=== PATIENT | male | born 1960 | race Hispanic/Latino ===

== ENCOUNTER 2018-06-01 07:49 | Observation (INO) | payer OTHER ==
[2018-06-01] MEDS ORDERED: Iohexol 240 (50 ml) ONE (08:25)
[2018-06-01] MEDS ORDERED: Iohexol 350 MG/100 ML VIAL ONE (08:33)
[2018-06-01 08:46] LABS: BASO # 0.07 K/mm3 (0.0-2.0); BASO % 0.7 % (0.0-3.0); EOS # 0.4 (0.0-0.7); EOS % 3.5 % (1.5-5.0); GRAN # 7.1 (1.4-6.5); GRAN % 71.2 % (50.0-68.0); HEMOGLOBIN 13.5 g/dL (14.0-18.0); LYMPH # 1.7 (1.2-3.4); MEAN CORPUSCULAR HEMOGLOBIN 29.5 pg (25.0-35.0); MEAN CORPUSCULAR HGB CONC 34.3 g/dl (31.0-37.0); MEAN PLATELET VOLUME 9.3 fl (7.0-11.0); MONO # 0.8 (0.1-0.6); MONO % 7.6 % (1.0-6.0); RBC 4.58 10^6/uL (3.5-6.1); RED CELL DISTRIBUTION WIDTH 14.1 % (11.5-14.5)
[2018-06-01 08:53] LABS: INR 1.23; PARTIAL THROMBOPLASTIN TIME 30.6 Seconds (25.1-36.5); PROTHROMBIN TIME 14.2 SECONDS (9.4-12.5)
[2018-06-01 08:54] LABS: ALB/GLOB RATIO 1.1 (1.1-1.8); ALBUMIN 3.8 g/dL (3.0-4.8); ALT/SGPT 48 U/L (7-56); AST/SGOT 92 U/L (17-59); BLOOD UREA NITROGEN 11 mg/dL (7-21); CALCIUM 9.7 mg/dL (8.4-10.5); GFR NON-AFRICAN AMERICAN > 60
--- NOTE | 2018-06-01 09:15 | ED PDOC ---
Arrival/HPI - General Chief Complaint: Abdominal Pain Time Seen by Provider: 06/01/18 08:12 Historian: Patient, Family - History of Present Illness Narrative History of Present Illness (Text): 06/01/18 08:20 58 year old male, with past medical history of ruptured peptic ulcer surgery years ago at [facility] [place], presents to the Emergency department accompanied by family complaining of abdominal pain and constipation since 2 weeks. Patient informs decreased bowel movement since onset of symptoms and reports his last bowel movement was yesterday with mild relief to symptoms. Patient denies any appetite changes or any other associated somatic complaints. Patient denies any fevers, chills, headache, dizziness, chest pain, shortness of breath, dyspnea on exertion, cough, nausea, vomiting, diarrhea, hematochezia, urinary output changes, neck pain, back pain or any other complaints. Time/Duration: > week Symptom Onset: Gradual Symptom Course: Unchanged Quality: Aching Activities at Onset: Light Context: Home Past Medical History - Provider Review Nursing Documentation Reviewed: Yes - Cardiac Hx Cardiac Disorders: No - Pulmonary Hx Respiratory Disorders: No - Neurological Hx Neurological Disorder: No - HEENT Hx HEENT Disorder: Yes (wears glasses) - Renal Hx Renal Disorder: No - Endocrine/Metabolic Hx Endocrine Disorders: No - Hematological/Oncological Hx Blood Transfusions: Yes Hx Blood Transfusion Reaction: No - Integumentary Hx Dermatological Disorder: No - Musculoskeletal/Rheumatological Hx Musculoskeletal Disorders: No Hx Falls: No - Gastrointestinal Hx Gastrointestinal Disorders: Yes (perforated ulcer 6 yrs ago) - Genitourinary/Gynecological Hx Genitourinary Disorders: No - Psychiatric Hx Psychophysiologic Disorder: No Hx Substance Use: No - Surgical History Other/Comment: Perforated intestine 6 yrs ago - Anesthesia Hx Anesthesia Reactions: No Hx Malignant Hyperthermia: No - Suicidal Assessment Feels Threatened In Home Enviroment: No Family/Social History - Physician Review Nursing Documentation Reviewed: Yes Family/Social History: Unknown Family HX Smoking Status: Heavy Smoker > 10 Cigarettes Daily Hx Alcohol Use: Yes (occasional) Hx Substance Use: No Allergies/Home Meds Allergies/Adverse Reactions: Allergies Penicillins Allergy (Verified 06/01/18 08:06) ANAPHYLAXIS Review of Systems - Physician Review All systems were reviewed & negative as marked: Yes - Review of Systems Constitutional: absent: Fevers Respiratory: absent: SOB, Cough Cardiovascular: absent: Chest Pain Gastrointestinal: Abdominal Pain, Constipation. absent: Diarrhea, Nausea, Vomiting, Appetite Changes, Hematochezia Genitourinary Male: absent: Dysuria, Hematuria, Urinary Output Changes Musculoskeletal: absent: Back Pain, Neck Pain Neurological: absent: Headache, Dizziness Physical Exam - Physical Exam Narrative Physical Exam (Text): 06/01/18 08:19 Gen: VS reviewed, alert, well developed, well nourished, nontoxic, mild distress. ENT: normal pharynx. Eye: EOMI, PERRL. Neck: no JVD, supple, no adenopathy. CV: regular rate, regular rhythm, no rubs, no murmur, no gallops, S1, S2, pulses equal and strong. Pulm: no distress, clear to auscultation, no wheeze, no rhonchi, breath sounds equal, no rales. Abd: Firm mass noted in upper abdomen. Non-tender and non-pulsatile. Ext: no edema. Skin: good color, no rash, no cyanosis. Psych: responds appropriately to questions, normal affect. Neuro: oriented x 3, CN2-12 intact grossly, motor intact, sensation intact. Vital Signs Reviewed: Yes Vital Signs Temp Pulse Resp BP Pulse Ox 06/01/18 08:18 98.3 F 86 18 126/76 100 Temperature: Afebrile Blood Pressure: Normal Pulse: Regular Respiratory Rate: Normal Appearance: Positive for: Well-Appearing, Non-Toxic, Comfortable Pain Distress: None Mental Status: Positive for: Alert and Oriented X 3 Medical Decision Making ED Course and Treatment: 06/01/18 08:20 Impression: 58 year old male presents to the Emergency department complaining of abdominal pain and constipation. Plan: -- CT of Abdomen/Pelvis -- EKG -- Labs -- Reassess and disposition Prior Visits: Notes and results from previous visits were reviewed. Progress Notes: 06/01/18 12:17 admit accepted by hospitalist, dr. becker, patient to be admitted for new liver masses, suspected metastatic disease. patient will require mulidisciplinar y approach for further care. i have informed the patient and sister of test results, care expectations, and have been given the opportunity to ask questions-they appear to have good understanding of everything up to this point. patient remained stable throughout course. - Lab Interpretations Lab Results: 06/01/18 08:20 06/01/18 08:20 Lab Results 06/01/18 08:20: PT 14.2 H, INR 1.23, APTT 30.6 06/01/18 08:20: Sodium 137, Potassium 3.9, Chloride 95 L, Carbon Dioxide 33, Anion Gap 12, BUN 11, Creatinine 0.7 L, Est GFR ( Amer) > 60, Est GFR (Non-Af Amer) > 60, Random Glucose 148 H, Calcium 9.7, Total Bilirubin 1.1, AST 92 H, ALT 48, Alkaline Phosphatase 344 H, Total Protein 7.2, Albumin 3.8, Globulin 3.4, Albumin/Globulin Ratio 1.1 06/01/18 08:20: WBC 10.0 D, RBC 4.58, Hgb 13.5 L, Hct 39.4 L, MCV 86.0, MCH 29.5, MCHC 34.3, RDW 14.1, Plt Count 412, MPV 9.3, Gran % 71.2 H, Lymph % (Auto) 17.0 L, [place] % (Auto) 7.6 H, Eos % (Auto) 3.5, Baso % (Auto) 0.7, Gran # 7.10 H, Lymph # (Auto) 1.7, [place] # (Auto) 0.8 H, Eos # (Auto) 0.4, Baso # (Auto) 0.07 - RAD Interpretation Narrative RAD Interpretations (Text): 06/01/18 11:34 CT of Abdomen reviewed by radiologist, shows: FINDINGS: LOWER THORAX: Unremarkable. LIVER: Innumerable hypodense masses throughout the liver the largest measuring 7 centimeters in the left hepatic lobe consistent with metastatic disease. GALLBLADDER AND BILE DUCTS: Unremarkable. PANCREAS: Unremarkable. No gross lesion or ductal dilatation. SPLEEN: Unremarkable. ADRENALS: Unremarkable. No mass. KIDNEYS AND URETERS: Unremarkable. No hydronephrosis. No solid mass. VASCULATURE: Unremarkable. No aortic aneurysm. No aortic atherosclerotic calcification or mural plaque present. BOWEL: Status post right hemicolectomy.No obstruction. No gross mural thickening. APPENDIX: Normal appendix. PERITONEUM: Unremarkable. No free fluid. No free air. LYMPH NODES: Unremarkable. No enlarged lymph nodes. BLADDER: Unremarkable. REPRODUCTIVE: Unremarkable. BONES: No acute fracture. OTHER FINDINGS: None. IMPRESSION: Innumerable hypodense masses throughout the liver the largest measuring 7 centimeters in the left hepatic lobe consistent with metastatic disease. Status post right hemicolectomy. Radiology Orders: 06/01/18 08:20 ABDOMEN & PELVIS [ABD PELVIS PO & IV CONTRAST] [CT] [employer]: Radiologist - EKG Interpretation EKG Interpretation (Text): 06/01/18 09:33 0850: nsr at 65 bpm, nml qrs, nml axis, no acute sttw abn Interpreted by ED Physician: Yes - Scribe Statement The provider has reviewed the documentation as recorded by the Scribe Nicol Edouard. All medical record entries made by the Scribe were at my direction and personally dictated by me. I have reviewed the chart and agree that the record accurately reflects my personal performance of the history, physical exam, medical decision making, and the department course for this patient. I have also personally directed, reviewed, and agree with the discharge instructions and disposition. Disposition/Present on Arrival - Present on Arrival Any Indicators Present on Arrival: No History of DVT/PE: No History of Uncontrolled Diabetes: No Urinary Catheter: No History of Decub. Ulcer: No History Surgical Site Infection Following: None - Disposition Have Diagnosis and Disposition been Completed?: Yes Diagnosis: Liver mass Disposition: HOSPITALIZED Disposition Time: 12:20 Patient Plan: Admission Condition: STABLE Forms: [employer] (Croatian)
--- NOTE | 2018-06-01 11:13 | CARD ---
APPROVED REPORT Date of service: 06/01/2018 EKG Measurement Heart [id number] <Conclusion> Normal sinus rhythm Normal ECG
--- NOTE | 2018-06-01 11:15 | CT ---
Date of service: 06/01/2018 PROCEDURE: CT Abdomen and Pelvis with contrast HISTORY: upper abdominal mass COMPARISON: None. TECHNIQUE: Contrast dose: Radiation dose: Total exam DLP = 330.45 mGy-cm. This CT exam was performed using one or more of the following dose reduction techniques: Automated exposure control, adjustment of the mA and/or kV according to patient size, and/or use of iterative reconstruction technique. FINDINGS: LOWER THORAX: Unremarkable. LIVER: Innumerable hypodense masses throughout the liver the largest measuring 7 centimeters in the left hepatic lobe consistent with metastatic disease. GALLBLADDER AND BILE DUCTS: Unremarkable. PANCREAS: Unremarkable. No gross lesion or ductal dilatation. SPLEEN: Unremarkable. ADRENALS: Unremarkable. No mass. KIDNEYS AND URETERS: Unremarkable. No hydronephrosis. No solid mass. VASCULATURE: Unremarkable. No aortic aneurysm. No aortic atherosclerotic calcification or mural plaque present. BOWEL: Status post right hemicolectomy.No obstruction. No gross mural thickening. APPENDIX: Normal appendix. PERITONEUM: Unremarkable. No free fluid. No free air. LYMPH NODES: Unremarkable. No enlarged lymph nodes. BLADDER: Unremarkable. REPRODUCTIVE: Unremarkable. BONES: No acute fracture. OTHER FINDINGS: None. IMPRESSION: Innumerable hypodense masses throughout the liver the largest measuring 7 centimeters in the left hepatic lobe consistent with metastatic disease. Status post right hemicolectomy.
--- NOTE | 2018-06-01 12:54 | CON ---
DATE: 06/01/2018 REQUESTING PHYSICIAN: Dr. Bennett. REASON FOR CONSULTATION: I have been asked to see this 58-year-old male with a history of ruptured peptic ulcer, history of stage IIIB colon cancer requiring right hemicolectomy back in 04/2015 who comes to the hospital with approximately 2 weeks of intermittent midabdominal pain. This was associated with constipation. I saw the patient in the office last and had scheduled the patient for an outpatient CT scan of the abdomen and pelvis. Routine blood work also revealed elevated alkaline phosphatase. The patient apparently was to see Dr. Carter for chemotherapy with FOLFOX. The patient does not recall if he ever had chemotherapy after his colon cancer surgery. CT scan of the abdomen and pelvis performed today in the emergency room shows multiple liver metastasis. The patient denies any fever, chills, nausea, vomiting or rectal bleeding. PAST MEDICAL HISTORY: As above. Again, he has a history of stage III colon cancer diagnosed in [id number], history of perforated peptic ulcer, history of DVT. PAST SURGICAL HISTORY: Notable for right hemicolectomy. The patient had surgery after his initial colon cancer surgery for revision of the anastomosis as he developed a hematoma. Several weeks later in 04/2015, he also had repair of a perforated peptic ulcer. SOCIAL HISTORY: The patient smokes up to half pack of cigarettes per day. He consumes alcohol on a regular basis. FAMILY HISTORY: Noncontributory. REVIEW OF SYSTEMS: A 14-point review of systems is notable for abdominal pain and constipation. PHYSICAL EXAMINATION: GENERAL: Middle-aged male, thin, in no acute distress. VITAL SIGNS: Reveal temperature of 98.3, blood pressure 118/68, heart rate is 71. HEENT: Reveal sclerae to be white. Conjunctivae pink. NECK: Supple. CHEST: Reveal lungs to be clear. HEART: Exam reveals a regular rate and rhythm. ABDOMEN: Reveals a well-healed left paramedian scar. He has a firm mass in the liver, which is palpable in the midline of the abdomen, 4 cm below the right costal margin. EXTREMITIES: Show no edema. LABORATORY DATA: Reveal white blood cell count of 10, hemoglobin 13.5. Chemistries reveal alkaline phosphatase of 344, AST 92, ALT 48. PT is 14.2, INR of 1.23. IMPRESSION: This is a 58-year-old male diagnosed with stage IIIB colon cancer back in 04/2015. It is unclear whether the patient ever had chemotherapy afterward. This was recommended by Dr. Carter. CT scan of the abdomen and pelvis performed here in the hospital revealed numerous liver metastases. His long-term prognosis is extremely poor. RECOMMENDATIONS: 1. We will request Dr. Becerra to do a CT-guided liver biopsy. 2. Check CEA level. 3. Will need Oncology evaluation. 4. Check alpha-fetoprotein tumor marker level. David Villagomez MD [facility]
--- NOTE | 2018-06-01 13:59 | CP.PCM.HP ---
<SangeethaAnnalisa - Last Filed: 06/01/18 15:12> History of Present Illness - History of Present Illness History of Present Illness: PGY-[address] Awad Mr Pulido, 58 M, with PMH of stage 3b colon cancer diagnosed in 2014 after having a bowel obstruction requiring R hemicolectomy, came to ED accompanied by family C/O abdominal pain and constipation since 2 weeks. The abdominal pain started 2 weeks ago with increased nodular sensation in epigastric area. The pain was only very mild, constant, not requiring any pain medicine. Bowel movement has decreased and his last bowel movement was yesterday with mild relief to symptoms. He did not follow up with oncologist since the diagnosis of colon cancer and was never on any cancer treatment. He saw PMD and GI last month. CT scan of abdomen and pelvis performed in ED showed multiple liver metastasis. He will undergo liver biopsy by interventional radiologist and pt wants to discharge home afterwards. Denies any appetite change, fevers, chills, night sweat, weight loss/gain, headache, dizziness, chest pain, shortness of breath, dyspnea on exertion, cough, nausea, vomiting, diarrhea, hematochezia, rectal bleeding, urinary output changes, neck pain, back pain or any other complaints. 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 Stage T3 N1) Chronic anemia Hx DVT (2014) PSH right hemicolectomy and adhesiolysis on 04/18/2015 and noted to have locally advanced cecal adenoca with lymphovascular invasion: He also underwent resection of ileocecal anastomosis with small bowel and transverse colon and evacuation of hematoma on 04/24/2015. FH Mother has DM, HTN, Heart disease and dyslipidemia. Maternal aunt has breast cancer. No history of colon cancer. SH smokes half a pack every day. Drinks socially. Denies use of drugs. All Penicillin Med See MAR Present on Admission - Present on Admission Any Indicators Present on Admission: Yes History of DVT/PE: Yes Past Patient History - Past Medical History & Family History Past Medical History?: No - Past Social History Smoking Status: Heavy Smoker > 10 Cigarettes Daily - CARDIAC Hx Cardiac Disorders: No - PULMONARY Hx Respiratory Disorders: No - NEUROLOGICAL Hx Neurological Disorder: No - HEENT Hx HEENT Problems: Yes (wears glasses) - RENAL Hx Chronic Kidney Disease: No - ENDOCRINE/METABOLIC Hx Endocrine Disorders: No - HEMATOLOGICAL/ONCOLOGICAL Hx Blood Transfusions: Yes Hx Blood Transfusion Reaction: No - INTEGUMENTARY Hx Dermatological Problems: No - MUSCULOSKELETAL/RHEUMATOLOGICAL Hx Musculoskeletal Disorders: No Hx Falls: No - GASTROINTESTINAL Hx Gastrointestinal Disorders: Yes (perforated ulcer 6 yrs ago) - GENITOURINARY/GYNECOLOGICAL Hx Genitourinary Disorders: No - PSYCHIATRIC Hx Psychophysiologic Disorder: No Hx Substance Use: No - SURGICAL HISTORY Other/Comment: Perforated intestine 6 yrs ago - ANESTHESIA Hx Anesthesia Reactions: No Hx Malignant Hyperthermia: No Meds Home Medications: Home Medication List Medication Instructions Recorded Confirmed Type Polyethylene Glycol 3350 [Miralax] 17 gm PO DAILY PRN #14 powder 06/02/18 Rx oxyCODONE/Acetaminophen [Percocet 1 ea PO Q6 #15 tab 06/02/18 Rx 5/325 mg Tab] Allergies/Adverse Reactions: Allergies Allergy/AdvReac Type Severity Reaction Status Date / Time Penicillins Allergy ANAPHYLAXIS Verified 06/01/18 15:37 Physical Exam - Constitutional Appears: No Acute Distress - Head Exam Head Exam: ATRAUMATIC, NORMAL INSPECTION, NORMOCEPHALIC - Eye Exam Eye Exam: EOMI, Normal appearance, PERRL. absent: Scleral icterus Pupil Exam: NORMAL ACCOMODATION - ENT Exam ENT Exam: Mucous Membranes Moist - Neck Exam Additional comments: supple, no jvd - Respiratory Exam Respiratory Exam: Clear to Auscultation Bilateral, NORMAL BREATHING PATTERN. absent: Decreased Breath Sounds, Rales, Rhonchi, Wheezes - Cardiovascular Exam Cardiovascular Exam: REGULAR RHYTHM, +S1, +S2. absent: Systolic Murmur - GI/Abdominal Exam GI & Abdominal Exam: Firm, Normal Bowel Sounds, Soft. absent: Distended, Guarding, Rigid, Tenderness Additional comments: tenderness upon palpation of epigastric area. Liver palpable below costal margins and epigastric area - Extremities Exam Extremities exam: Positive for: normal capillary refill, normal inspection, pedal pulses present. Negative for: calf tenderness, pedal edema, tenderness - Back Exam Back exam: absent: CVA tenderness (L), CVA tenderness (R) - Neurological Exam Neurological exam: Alert, CN II-XII Intact, Oriented x3 - Psychiatric Exam Psychiatric exam: Flat Affect, Normal Mood - Skin Skin Exam: Dry, Warm Results - Vital Signs Recent Vital Signs: Last Vital Signs Temp 98.1 F 06/01/18 13:18 Pulse 69 06/01/18 13:18 Resp 18 06/01/18 13:18 BP 124/76 06/01/18 13:18 Pulse Ox 100 06/01/18 13:18 - Labs Result Diagrams: 06/01/18 08:20 06/01/18 08:20 Labs: Laboratory Results - last 24 hr 06/01/18 06/01/18 06/01/18 08:20 08:20 08:20 WBC 10.0 D RBC 4.58 Hgb 13.5 L Hct 39.4 L MCV 86.0 MCH 29.5 MCHC 34.3 RDW 14.1 Plt Count 412 MPV 9.3 Gran % 71.2 H Lymph % (Auto) 17.0 L [place] % (Auto) 7.6 H Eos % (Auto) 3.5 Baso % (Auto) 0.7 Gran # 7.10 H Lymph # (Auto) 1.7 [place] # (Auto) 0.8 H Eos # (Auto) 0.4 Baso # (Auto) 0.07 PT 14.2 H INR 1.23 APTT 30.6 Sodium 137 Potassium 3.9 Chloride 95 L Carbon Dioxide 33 Anion Gap 12 BUN 11 Creatinine 0.7 L Est GFR ( Amer) > 60 Est GFR (Non-Af Amer) > 60 Random Glucose 148 H Calcium 9.7 Total Bilirubin 1.1 AST 92 H ALT 48 Alkaline Phosphatase 344 H Total Protein 7.2 Albumin 3.8 Globulin 3.4 Albumin/Globulin Ratio 1.1 Assessment & Plan - Assessment and Plan (Free Text) Plan: Suspected Liver metastasis Stage 3B colon cancer, diagnosed 2014, never treated - Liver Biosy by IR - Will check AFT and CEA level - NS@125 - liquid diet per IR - Pt will have an appointment at Dr Carter's clinic next Friday, 06/10, 3pm. - Pt to follow up with Dr. Villagomez and Dr Ayala within next week. - Patient insisted to go home after the biopsy - Sister knew of CT scan but mom doesnt know yet Hx DVT not on anticoagulant DVT prophylaxis with heparin sc s/r/d/w Dr. Awad <Naeem Awad - Last Filed: 06/02/18 14:13> Results - Vital Signs Recent Vital Signs: Last Vital Signs Temp 98.2 F 06/02/18 07:58 Pulse 58 L 06/02/18 07:58 Resp 20 06/02/18 07:58 BP 114/70 06/02/18 09:34 Pulse Ox 97 06/02/18 07:58 - Labs Result Diagrams: 06/02/18 07:10 06/02/18 07:10 Labs: Laboratory Results - last 24 hr 06/01/18 06/01/18 06/02/18 15:40 15:40 07:10 WBC 11.6 H RBC 4.22 Hgb 12.2 L Hct 36.3 L MCV 86.0 MCH 28.9 MCHC 33.6 RDW 14.0 Plt Count 382 MPV 9.3 Gran % 72.3 H Lymph % (Auto) 13.4 L [place] % (Auto) 10.6 H Eos % (Auto) 3.2 Baso % (Auto) 0.5 Gran # 8.38 H Lymph # (Auto) 1.6 [place] # (Auto) 1.2 H Eos # (Auto) 0.4 Baso # (Auto) 0.06 Sodium Potassium Chloride Carbon Dioxide Anion Gap BUN Creatinine Est GFR ( Amer) Est GFR (Non-Af Amer) Random Glucose Calcium Total Bilirubin AST ALT Alkaline Phosphatase Lactate Dehydrogenase Total Protein Albumin Globulin Albumin/Globulin Ratio Alpha Fetoprotein 2.6 Carcinoembryonic Ag 28.9 H 06/02/18 07:10 WBC RBC Hgb Hct MCV MCH MCHC RDW Plt Count MPV Gran % Lymph % (Auto) [place] % (Auto) Eos % (Auto) Baso % (Auto) Gran # Lymph # (Auto) [place] # (Auto) Eos # (Auto) Baso # (Auto) Sodium 136 Potassium 4.0 Chloride 98 Carbon Dioxide 33 Anion Gap 9 L BUN 9 Creatinine 0.8 Est GFR ( Amer) > 60 Est GFR (Non-Af Amer) > 60 Random Glucose 95 Calcium 9.3 Total Bilirubin 1.2 AST 81 H ALT 43 Alkaline Phosphatase 300 H Lactate Dehydrogenase 1916 H Total Protein 6.6 Albumin 3.5 Globulin 3.1 Albumin/Globulin Ratio 1.1 Alpha Fetoprotein Carcinoembryonic Ag Attending/Attestation - Attestation I have personally seen and examined this patient.: Yes I have fully participated in the care of the patient.: Yes I have reviewed all pertinent clinical information: Yes Notes (Text): 06/02/18 14:09 Attending note; Patient seen and examined with resident. Patient is a 58-year-old male with PMH of stage 3b colon cancer diagnosed in 2014 after having a bowel obstruction requiring R hemicolectomy is admitted for abdominal pain. CT abdomen and pelvis showed innumerable hypodense masses in the liver. Plan for the biopsy by Dr. Andrez Becerra. Plan discussed with patient ,patient's sister and mom in detail. Patient did not follow-up with oncology after colon cancer diagnosis in 2014. Oncology evaluation requested. Patient was evaluated by GI Dr. Villagomez today. Upon discharge the patient will follow-up with PMD .
[2018-06-01] MEDS ORDERED: Midazolam 2 MG/2 ML VIAL ONE ×2 (14:58→18:06)
[2018-06-01] MEDS ORDERED: Lidocaine 1% Inj (20ml) ONE (14:59)
[2018-06-01] MEDS: Sodium Chloride 0.45% 1,000 ML IV SCH (15:38)
[2018-06-01] MEDS ORDERED: POLYETHYLENE GLYCOL 3350 17 GM/Dose PACKET PO PRN (17:01)
[2018-06-01 18:21] VITALS: BMI 20.5
[2018-06-01] MEDS ORDERED: Influenza Vaccine 60 mcg/0.5 mL SYR (4YR UP) IM ONE (18:21)
[2018-06-01] MEDS ORDERED: Pneumococcal 23-Valent Vaccine IM ONE (18:21)
[2018-06-01] MEDS ORDERED: Sodium Chloride 0.45% 1,000 ML IV SCH (19:15)
[2018-06-01] MEDS ORDERED: Midazolam 2 MG/2 ML VIAL IVP ONE (19:50)
--- NOTE | 2018-06-01 20:16 | CT ---
PROCEDURE: CT guided liver biopsy. HISTORY: Previous colon carcinoma. Numerous liver lesions consistent with metastatic disease. Needs biopsy. PHYSICIAN(S): Andrez Becerra MD. TECHNIQUE: The relative risks and indications of the procedure were explained to the patient and his family and consent obtained. The patient was placed supine on the CT scanner and preliminary images through the liver obtained. Conscious sedation and monitoring were provided throughout the procedure by a nurse. There are numerous low-attenuation liver lesions in both lobes of the liver.. A subxyphoid approach was selected and the area prepped and draped in the usual sterile fashion. 1% Xylocaine was used to anesthetize the skin and soft tissues. A 17-gauge guiding needle was advanced into the 7.5 cm confluent mass in the medial segment of the left lobe. Its position was confirmed with CT. Using coaxial technique, multiple core biopsies were obtained. The postprocedure images show no evidence of significant hemorrhage. IMPRESSION: 1. CT-guided liver biopsy as described above.
[2018-06-01] MEDS: Oxycodone/Acetaminophen 5/325 mg Tab PO PRN (22:19)
[2018-06-02] MEDS: Oxycodone/Acetaminophen 5/325 mg Tab PO PRN (04:02)
[2018-06-02] MEDS: Sodium Chloride 0.45% 1,000 ML IV SCH ×2 (04:07→04:10)
[2018-06-02 07:28] LABS: BASO # 0.06 K/mm3 (0.0-2.0); BASO % 0.5 % (0.0-3.0); EOS # 0.4 (0.0-0.7); EOS % 3.2 % (1.5-5.0); GRAN # 8.38 (1.4-6.5); GRAN % 72.3 % (50.0-68.0); HEMOGLOBIN 12.2 g/dL (14.0-18.0); LYMPH # 1.6 (1.2-3.4); LYMPH % 13.4 % (22.0-35.0); MEAN CORPUSCULAR HEMOGLOBIN 28.9 pg (25.0-35.0); MEAN CORPUSCULAR HGB CONC 33.6 g/dl (31.0-37.0); MEAN PLATELET VOLUME 9.3 fl (7.0-11.0); MONO # 1.2 (0.1-0.6); MONO % 10.6 % (1.0-6.0); RBC 4.22 10^6/uL (3.5-6.1); WHITE BLOOD COUNT 11.6 10^3/uL (4.5-11.0)
[2018-06-02 07:53] LABS: ALB/GLOB RATIO 1.1 (1.1-1.8); ALBUMIN 3.5 g/dL (3.0-4.8); ALT/SGPT 43 U/L (7-56); AST/SGOT 81 U/L (17-59); BLOOD UREA NITROGEN 9 mg/dL (7-21); CALCIUM 9.3 mg/dL (8.4-10.5); GFR NON-AFRICAN AMERICAN > 60
[2018-06-02 07:58] VITALS: BP 114/70; PULSE 58; RESP 20; TEMP 98.2; O2SAT 97
[2018-06-02] MEDS ORDERED: Multivitamin Therapeutic Tab PO SCH (10:00)
--- NOTE | 2018-06-02 15:33 | CP.PCM.DIS ---
<Mahad Medrano - Last Filed: 06/02/18 15:44> Provider - Provider Date of Admission: 06/01/18 12:15 Attending physician: Naeem Awad MD Consults: GI: Dahlia, IR: Don Becerra/onc: Emma Time Spent in preparation of Discharge (in minutes): 40 Diagnosis - Discharge Diagnosis (1) Colon cancer metastasized to liver Status: Acute (2) Colon cancer Status: Acute (3) Liver mass Status: Acute Hospital Course - Lab Results Lab Results: Most Recent Lab Values WBC 11.6 10^3/uL (4.5-11.0) H 06/02/18 07:10 RBC 4.22 10^6/uL (3.5-6.1) 06/02/18 07:10 Hgb 12.2 g/dL (14.0-18.0) L 06/02/18 07:10 Hct 36.3 % (42.0-52.0) L 06/02/18 07:10 MCV 86.0 fl (80.0-105.0) 06/02/18 07:10 MCH 28.9 pg (25.0-35.0) 06/02/18 07:10 MCHC 33.6 g/dl (31.0-37.0) 06/02/18 07:10 RDW 14.0 % (11.5-14.5) 06/02/18 07:10 Plt Count 382 10^3/uL (120.0-450.0) 06/02/18 07:10 MPV 9.3 fl (7.0-11.0) 06/02/18 07:10 Gran % 72.3 % (50.0-68.0) H 06/02/18 07:10 Lymph % (Auto) 13.4 % (22.0-35.0) L 06/02/18 07:10 [place] % (Auto) 10.6 % (1.0-6.0) H 06/02/18 07:10 Eos % (Auto) 3.2 % (1.5-5.0) 06/02/18 07:10 Baso % (Auto) 0.5 % (0.0-3.0) 06/02/18 07:10 Gran # 8.38 (1.4-6.5) H 06/02/18 07:10 Lymph # (Auto) 1.6 (1.2-3.4) 06/02/18 07:10 [place] # (Auto) 1.2 (0.1-0.6) H 06/02/18 07:10 Eos # (Auto) 0.4 (0.0-0.7) 06/02/18 07:10 Baso # (Auto) 0.06 K/mm3 (0.0-2.0) 06/02/18 07:10 PT 14.2 SECONDS (9.4-12.5) H 06/01/18 08:20 INR 1.23 06/01/18 08:20 APTT 30.6 Seconds (25.1-36.5) 06/01/18 08:20 Sodium 136 mmol/L (132-148) 06/02/18 07:10 Potassium 4.0 mmol/L (3.6-5.0) 06/02/18 07:10 Chloride 98 mmol/L (98-107) 06/02/18 07:10 Carbon Dioxide 33 mmol/L (21-33) 06/02/18 07:10 Anion Gap 9 (10-20) L 06/02/18 07:10 BUN 9 mg/dL (7-21) 06/02/18 07:10 Creatinine 0.8 mg/dl (0.8-1.5) 06/02/18 07:10 Est GFR ( Amer) > 60 06/02/18 07:10 Est GFR (Non-Af Amer) > 60 06/02/18 07:10 Random Glucose 95 mg/dL (70-110) 06/02/18 07:10 Calcium 9.3 mg/dL (8.4-10.5) 06/02/18 07:10 Total Bilirubin 1.2 mg/dL (0.2-1.3) 06/02/18 07:10 AST 81 U/L (17-59) H 06/02/18 07:10 ALT 43 U/L (7-56) 06/02/18 07:10 Alkaline Phosphatase 300 U/L (38-126) H 06/02/18 07:10 Lactate Dehydrogenase 1916 U/L (333-699) H 06/02/18 07:10 Total Protein 6.6 g/dL (5.8-8.3) 06/02/18 07:10 Albumin 3.5 g/dL (3.0-4.8) 06/02/18 07:10 Globulin 3.1 gm/dL 06/02/18 07:10 Albumin/Globulin Ratio 1.1 (1.1-1.8) 06/02/18 07:10 Alpha Fetoprotein 2.6 ng/mL (0.0-7.5) 06/01/18 15:40 Carcinoembryonic Ag 28.9 ng/mL (0.0-3.0) H 06/01/18 15:40 - Hospital Course Hospital Course: Mahad Medrano DO, PGY-1 Hospitalist Discharge Summary for Dr. Awad Mr. Pulido is a 58 yo M with PMH of stage 3b colon CA (diagnosed in 2014, now stage IV given liver mets), DVT (2014), chronic anemia, and SBO presented t the ED with worsening abdominal pain and constipation x 2 weeks. Per patient he had continuing lower abdominal pain that progressed to a sharp, stabbing type pain. CTAP done in ED showed multiple liver metastases. Mr. Pulido was first diagnosed with stage 3b colon CA in 2014. He susequently underwent R hemicolectomy with Dr. Storey. He also had an SBO and adehesiolysis completed at that time. At that time in 2014, he was instructed to f/u with Dr. Carter for outpatient FOLFOX chemotherapy. Unfortunately, he was lost to follow up and never received FOLFOX or any other chemotherapy post-op. He only recently returned to his PMD, Dr. Peter, and Dr. Villagomez about a month ago. He was admitted to [facility] yesterday for biopsy of one of the liver lesions per IR Dr. Becerra. Official path report is still pending but suspicion for metastatic disease is high. After the biopsy, he recovered well, has been afebrile. He states that his pain has not been well controlled with tylenol alone and requested additional pain medicine. The biopsy site appears clean, dry, intact, with minimal ecchymosis. He was given prescription for 5 days of percocet until he is able to f/u with PMD (Dr. Peter), Dr. Carter, or Dr. Villagomez. Medications were delivered at bedside prior to discharge. Dr. Carter has followed him while in the hospital and he is instructed to follow up with him for outpatient chemotherapy after discharge. He is also instructed to follow up with his PMD and Dr. Villagomez within 7 days of discharge from hospital. Patient verbalized understanding and stated he did not want to stay in the hospital and would prefer to go home. All questions were answered. Discharge Exam - Head Exam Head Exam: ATRAUMATIC, NORMAL INSPECTION, NORMOCEPHALIC - Eye Exam Eye Exam: EOMI, Normal appearance, PERRL - ENT Exam ENT Exam: Mucous Membranes Moist - Neck Exam Neck exam: Full Rom, Normal Inspection - Respiratory Exam Respiratory Exam: Clear to PA & Lateral, NORMAL BREATHING PATTERN, UNREMARKABLE. absent: Accessory Muscle Use, Rales, Rhonchi, Wheezes, Respiratory Distress - Cardiovascular Exam Cardiovascular Exam: REGULAR RHYTHM, RRR, +S1, +S2. absent: Diastolic murmur, Gallop, Rubs, Systolic Murmur - GI/Abdominal Exam GI & Abdominal Exam: Normal Bowel Sounds, Soft. absent: Guarding, Tenderness Additional comments: RUQ bx site clean, dry, intact with minimal ecchymosis - Extremities Exam Extremities exam: full ROM, normal inspection - Back Exam Back exam: NORMAL INSPECTION - Neurological Exam Neurological exam: Alert, Oriented x3 - Psychiatric Exam Psychiatric exam: Agitated, Anxious - Skin Skin Exam: Dry, Intact, Warm Discharge Plan - Discharge Medications Prescriptions: oxyCODONE/Acetaminophen [Percocet 5/325 mg Tab] 1 ea PO Q6 #15 tab Polyethylene Glycol 3350 [Miralax] 17 gm PO DAILY PRN #14 powder PRN Reason: Constipation - Follow Up Plan Condition: STABLE Disposition: HOME/ ROUTINE Instructions: Postoperative Ileus (DC), Colon and Rectal Cancer (DC), Colon Stricture (DC) Additional Instructions: Please follow up with Dr. Carter next Sunday 06/10. Your appointment is at 3pm. Follow up with Dr. Villagomez and Dr. Peter next week for biopsy results. Follow up with Dr. Carter to continue pain and cancer management after your biopsy. If your symptoms worsen please return to nearest ED. Referrals: David Peter MD [Staff Provider] - 1 Week David Villagomez MD [Staff Provider] - 1 Week Nancy Carter MD [Staff Provider] - 1 Week <Naeem Awad - Last Filed: 06/03/18 14:55> Provider - Provider Date of Admission: 06/01/18 12:15 Attending physician: Naeem Awad MD Hospital Course - Lab Results Lab Results: Most Recent Lab Values WBC 11.6 10^3/uL (4.5-11.0) H 06/02/18 07:10 RBC 4.22 10^6/uL (3.5-6.1) 06/02/18 07:10 Hgb 12.2 g/dL (14.0-18.0) L 06/02/18 07:10 Hct 36.3 % (42.0-52.0) L 06/02/18 07:10 MCV 86.0 fl (80.0-105.0) 06/02/18 07:10 MCH 28.9 pg (25.0-35.0) 06/02/18 07:10 MCHC 33.6 g/dl (31.0-37.0) 06/02/18 07:10 RDW 14.0 % (11.5-14.5) 06/02/18 07:10 Plt Count 382 10^3/uL (120.0-450.0) 06/02/18 07:10 MPV 9.3 fl (7.0-11.0) 06/02/18 07:10 Gran % 72.3 % (50.0-68.0) H 06/02/18 07:10 Lymph % (Auto) 13.4 % (22.0-35.0) L 06/02/18 07:10 [place] % (Auto) 10.6 % (1.0-6.0) H 06/02/18 07:10 Eos % (Auto) 3.2 % (1.5-5.0) 06/02/18 07:10 Baso % (Auto) 0.5 % (0.0-3.0) 06/02/18 07:10 Gran # 8.38 (1.4-6.5) H 06/02/18 07:10 Lymph # (Auto) 1.6 (1.2-3.4) 06/02/18 07:10 [place] # (Auto) 1.2 (0.1-0.6) H 06/02/18 07:10 Eos # (Auto) 0.4 (0.0-0.7) 06/02/18 07:10 Baso # (Auto) 0.06 K/mm3 (0.0-2.0) 06/02/18 07:10 PT 14.2 SECONDS (9.4-12.5) H 06/01/18 08:20 INR 1.23 06/01/18 08:20 APTT 30.6 Seconds (25.1-36.5) 06/01/18 08:20 Sodium 136 mmol/L (132-148) 06/02/18 07:10 Potassium 4.0 mmol/L (3.6-5.0) 06/02/18 07:10 Chloride 98 mmol/L (98-107) 06/02/18 07:10 Carbon Dioxide 33 mmol/L (21-33) 06/02/18 07:10 Anion Gap 9 (10-20) L 06/02/18 07:10 BUN 9 mg/dL (7-21) 06/02/18 07:10 Creatinine 0.8 mg/dl (0.8-1.5) 06/02/18 07:10 Est GFR ( Amer) > 60 06/02/18 07:10 Est GFR (Non-Af Amer) > 60 06/02/18 07:10 Random Glucose 95 mg/dL (70-110) 06/02/18 07:10 Calcium 9.3 mg/dL (8.4-10.5) 06/02/18 07:10 Total Bilirubin 1.2 mg/dL (0.2-1.3) 06/02/18 07:10 AST 81 U/L (17-59) H 06/02/18 07:10 ALT 43 U/L (7-56) 06/02/18 07:10 Alkaline Phosphatase 300 U/L (38-126) H 06/02/18 07:10 Lactate Dehydrogenase 1916 U/L (333-699) H 06/02/18 07:10 Total Protein 6.6 g/dL (5.8-8.3) 06/02/18 07:10 Albumin 3.5 g/dL (3.0-4.8) 06/02/18 07:10 Globulin 3.1 gm/dL 06/02/18 07:10 Albumin/Globulin Ratio 1.1 (1.1-1.8) 06/02/18 07:10 Alpha Fetoprotein 2.6 ng/mL (0.0-7.5) 06/01/18 15:40 Carcinoembryonic Ag 28.9 ng/mL (0.0-3.0) H 06/01/18 15:40 CA 19-9 Antigen 120 U/mL (0-37) H 06/02/18 11:20 Attending/Attestation - Attestation I have personally seen and examined this patient.: Yes I have fully participated in the care of the patient.: Yes I have reviewed all pertinent clinical information, including history, physical exam and plan: Yes Notes (Text): 06/03/18 14:45 Attending note; Patient seen and examined with resident. patient's sister and mother by the bedside. Patient is restless. Does not want to stay in the hospital. seen by oncology. Triple phase CT of liver recommended. outpatient PET scan recommended. Patient refused studies inpatient. Patient is a 58-year-old male with PMH of stage 3b colon cancer diagnosed in 2015 after having a bowel obstruction requiring R hemicolectomy is admitted for abdominal pain. CT abdomen and pelvis showed innumerable hypodense masses in the liver. s/p liver biopsy by Dr. Andrez Becerra. advised to follow-up results as outpatient. appointment made with Dr. Carter for outpatient oncology evaluation and treatment. Patient was evaluated by GI Dr. Villagomez today. case discussed with PMD in detail. Follow-up plan discussed with patient and family in detail. Upon discharge the patient will follow-up with PMD .
--- NOTE | 2018-06-02 17:32 | CP.PCM.CON ---
History of Present Illness - History of Present Illness History of Present Illness: Hematology/Oncology Consultation (Dr. Carter's Service) CC: Innumerable liver masses with history of untreated (patient non-compliance) stage IIIb adenocarcinoma of the colon HPI: Mr. Pulido is a 58 year old male with a past medical history significant for Stage 3b Colon cancer (locally advanced cecal adenocarcinoma with lymphovascular invasion, Caldwell II. Stage T3 N1), bowel obstruction s/p emergent laparotomy resulting in R hemicolectomy tobacco use disorder, chronic anemia and history of DVT (2014) who presents with abdominal pain. The abdominal pain started two weeks ago with increased nodular sensation in his epigastric area. The pain was reported to be mild, constant and without radiation. He rates the pain as an 8/10. He does report that it did not require any pain medicine. He also reports that he has had less frequent BM's with his last one yesterday. Of note, this provided very little if any relief of his presenting abdominal pain. Patient was noted to have been diagnosed with colon cancer in 2014 at [facility]. At that time, it was staged as IIIb and patient was scheduled for outpatient follow up with our Oncology team. Patient did not comply with this and was never treated nor saw any oncologists in the interim. Discussions with patients primary care doctor revealed that patient has a long standing history of non-compliance with follow up, health maintenance and medication adherence that has been well documented by their office. Currently patient denies any ppetite change, fevers, chills, night sweat, weight loss/gain, headache, dizziness, chest pain, shortness of breath, dyspnea on exertion, cough, nausea, vomiting, diarrhea, hematochezia, rectal bleeding, urinary output changes, neck pain, or back pain. PMH: As stated above PSH: Right hemicolectomy and adhesiolysis (04/18/2015), resection of ileocecal anastomosis with small bowel and transverse colon and evacuation of hematoma (04/24/2015) Family History: Mother-DM2, HTN, CAD, HLD; Maternal Aunt-Breast Cancer Social History: Current smoker with at least 30 year pack smoking history, social consumption of alcohol and denies any illicit drug use Allergies: PCN Home Medications: As per MAR Review of Systems - Review of Systems Review of Systems: As stated in HPI, otherwise negative Past Patient History - Past Medical History & Family History Past Medical History?: No - Past Social History Smoking Status: Former Smoker - CARDIAC Hx Cardiac Disorders: No - PULMONARY Hx Respiratory Disorders: Yes (SMOKES 1/2 PPD) - NEUROLOGICAL Hx Neurological Disorder: No - HEENT Hx HEENT Problems: Yes (wears glasses) - RENAL Hx Chronic Kidney Disease: No - ENDOCRINE/METABOLIC Hx Endocrine Disorders: No - HEMATOLOGICAL/ONCOLOGICAL Hx Blood Disorders: Yes Hx Anemia: Yes - INTEGUMENTARY Hx Dermatological Problems: No - MUSCULOSKELETAL/RHEUMATOLOGICAL Hx Musculoskeletal Disorders: No Hx Falls: No - GASTROINTESTINAL Hx Gastrointestinal Disorders: Yes (perforated ulcer 6 yrs ago WITH REPAIR.) Other/Comment: SBO,COLON CA WITH LIVER MASS,RIGHT HEMICOLECTOMY - GENITOURINARY/GYNECOLOGICAL Hx Genitourinary Disorders: No - PSYCHIATRIC Hx Psychophysiologic Disorder: No Hx Substance Use: No - SURGICAL HISTORY Hx Surgeries: Yes (HEMICOLECTOMY) Other/Comment: Perforated intestine 6 yrs ago - ANESTHESIA Hx Anesthesia Reactions: No Hx Malignant Hyperthermia: No Meds Home Medications: Home Medication List Medication Instructions Recorded Confirmed Type Polyethylene Glycol 3350 [Miralax] 17 gm PO DAILY PRN #14 powder 06/02/18 Rx oxyCODONE/Acetaminophen [Percocet 1 ea PO Q6 #15 tab 06/02/18 Rx 5/325 mg Tab] Allergies/Adverse Reactions: Allergies Allergy/AdvReac Type Severity Reaction Status Date / Time Penicillins Allergy ANAPHYLAXIS Verified 06/01/18 15:37 Physical Exam - Constitutional Additional comments: - Head Exam Head Exam: ATRAUMATIC, NORMAL INSPECTION, NORMOCEPHALIC - Eye Exam Eye Exam: EOMI, Normal appearance, PERRL - ENT Exam ENT Exam: Mucous Membranes Moist - Neck Exam Neck exam: Full Rom, Normal Inspection - Respiratory Exam Respiratory Exam: Clear to Auscultation Bilaterally, NORMAL BREATHING PATTERN absent: Accessory Muscle Use, Rales, Rhonchi, Wheezes, Respiratory Distress - Cardiovascular Exam Cardiovascular Exam: REGULAR RHYTHM, RRR, +S1, +S2. absent: Diastolic murmur, Gallop, Rubs, Systolic Murmur - GI/Abdominal Exam GI & Abdominal Exam: Normal Bowel Sounds, Soft. absent: Guarding, Tenderness Additional comments: RUQ biopsy site clean, dry, and intact with minimal ecchymosis - Extremities Exam Extremities exam: full ROM, normal inspection - Back Exam Back exam: NORMAL INSPECTION - Neurological Exam Neurological exam: Alert, Oriented x3 - Psychiatric Exam Psychiatric exam: Agitated, Anxious - Skin Skin Exam: Dry, Intact, Warm Results - Vital Signs Recent Vital Signs: Last Vital Signs Temp 98.2 F 06/02/18 07:58 Pulse 58 L 06/02/18 07:58 Resp 20 06/02/18 07:58 BP 114/70 06/02/18 09:34 Pulse Ox 97 06/02/18 07:58 - Labs Result Diagrams: 06/02/18 07:10 06/02/18 07:10 Labs: Laboratory Results - last 24 hr 06/01/18 06/02/18 06/02/18 15:40 07:10 07:10 WBC 11.6 H RBC 4.22 Hgb 12.2 L Hct 36.3 L MCV 86.0 MCH 28.9 MCHC 33.6 RDW 14.0 Plt Count 382 MPV 9.3 Gran % 72.3 H Lymph % (Auto) 13.4 L [place] % (Auto) 10.6 H Eos % (Auto) 3.2 Baso % (Auto) 0.5 Gran # 8.38 H Lymph # (Auto) 1.6 [place] # (Auto) 1.2 H Eos # (Auto) 0.4 Baso # (Auto) 0.06 Sodium 136 Potassium 4.0 Chloride 98 Carbon Dioxide 33 Anion Gap 9 L BUN 9 Creatinine 0.8 Est GFR ( Amer) > 60 Est GFR (Non-Af Amer) > 60 Random Glucose 95 Calcium 9.3 Total Bilirubin 1.2 AST 81 H ALT 43 Alkaline Phosphatase 300 H Lactate Dehydrogenase 1916 H Total Protein 6.6 Albumin 3.5 Globulin 3.1 Albumin/Globulin Ratio 1.1 Alpha Fetoprotein 2.6 CA 19-9 Antigen 06/02/18 11:20 WBC RBC Hgb Hct MCV MCH MCHC RDW Plt Count MPV Gran % Lymph % (Auto) [place] % (Auto) Eos % (Auto) Baso % (Auto) Gran # Lymph # (Auto) [place] # (Auto) Eos # (Auto) Baso # (Auto) Sodium Potassium Chloride Carbon Dioxide Anion Gap BUN Creatinine Est GFR ( Amer) Est GFR (Non-Af Amer) Random Glucose Calcium Total Bilirubin AST ALT Alkaline Phosphatase Lactate Dehydrogenase Total Protein Albumin Globulin Albumin/Globulin Ratio Alpha Fetoprotein CA 19-9 Antigen 120 H Assessment & Plan - Assessment and Plan (Free Text) Assessment: 58 year old male with a past medical history significant for Stage 3b Colon cancer (locally advanced cecal adenocarcinoma with lymphovascular invasion, Caldwell II. Stage T3 N1), bowel obstruction s/p emergent laparotomy resulting in R hemicolectomy tobacco use disorder, chronic anemia and history of DVT (2015) who presents with abdominal pain. A CT abdomen/pelvis with IV contrast showed innumerable liver masses. IR performed CT-guided liver biopsy yesterday, results pending. Patient will be discharged today as he is demanding discharge with outpatient followup at this time. Plan: -Extensive history of non-compliance with outpatient follow-up, routine health maintenance and treatment noted and documented -CT Abdomen/Pelvis findings noted and reviewed with patient -Biopsy results pending; Added K-riri, BRAF, PDL-1 and MSI -Patient to have PET/CT and CT Liver protocol done -Patient given prescriptions for above outpatient imaging studies -All forms delivered to both outpatient radiology and outpatient PET/CT offices by myself -Patient to receive call back for imaging scheduling -To be seen in Dr. Carter's clinic on 06/10/2018 -Follow up with both his primary doctor (Dr. Peter) and hims clerk (Dr. Villagomez) -Further recommendations as per Dr. Carter Patient seen and case discussed with attending, Dr. Carter. Arnaud Sutton PGY2 - Date & Time Date: 06/02/18 Time: 12:00
== END 2018-06-02 14:20 | disposition home or self-care (01) ==
LOC: ED 07:49 → ERH 12:15 → INTOOBSV 12:15 → ERH 12:49 → 3RNO 14:19
PROVIDERS: ADMIT Internal Medicine; ATTEND Internal Medicine
DX: C78.7 Secondary malignant neoplasm of liver and intrahepatic bile duct (principal); Z85.038 Personal history of other malignant neoplasm of large intestine; D64.9 Anemia, unspecified; F17.210 Nicotine dependence, cigarettes, uncomplicated; Z91.19 Patient's noncompliance with other medical treatment and regimen; Z90.49 Acquired absence of other specified parts of digestive tract; Z86.718 Personal history of other venous thrombosis and embolism
CPT/HCPCS: 36415; 47000; 74177; 77012; 80053; 82105; 82378; 83615; 85025; 85027; 85610; 85730; 86301; 88307; 93005; 99284; G0378; J7030; Q9966; Q9967

== ENCOUNTER 2018-06-30 06:27 | Day surgery (SDC) | payer OTHER ==
[2018-06-18 13:25] VITALS: BMI 20.2
[2018-06-30 07:10] LABS: BASO # 0.07 K/mm3 (0.0-2.0); BASO % 0.4 % (0.0-3.0); EOS # 0.3 (0.0-0.7); EOS % 1.6 % (1.5-5.0); GRAN # 13.63 (1.4-6.5); GRAN % 80.4 % (50.0-68.0); HEMOGLOBIN 11.3 g/dL (14.0-18.0); INR 1.36; LYMPH # 1.5 (1.2-3.4); MEAN CELL VOLUME 83.7 fl (80.0-105.0); MEAN CORPUSCULAR HGB CONC 33.4 g/dl (31.0-37.0); MEAN PLATELET VOLUME 9.4 fl (7.0-11.0); MONO # 1.5 (0.1-0.6); MONO % 8.6 % (1.0-6.0); PARTIAL THROMBOPLASTIN TIME 25.1 Seconds (25.1-36.5); PROTHROMBIN TIME 15.7 SECONDS (9.4-12.5); RBC 4.04 10^6/uL (3.5-6.1); RED CELL DISTRIBUTION WIDTH 15.1 % (11.5-14.5); WHITE BLOOD COUNT 16.9 10^3/uL (4.5-11.0)
[2018-06-30 07:15] LABS: BLOOD UREA NITROGEN 9 mg/dL (7-21); CALCIUM 9.4 mg/dL (8.4-10.5); GFR NON-AFRICAN AMERICAN > 60
[2018-06-30] MEDS ORDERED: Iodixanol 320 mg/ml 150 ml Bottle IV ONE (09:58)
[2018-06-30] MEDS ORDERED: Lidocaine 2% Inj (20ml) ONE (09:58)
[2018-06-30] MEDS ORDERED: Midazolam 2 MG/2 ML VIAL ONE ×2 (10:38→10:53)
[2018-06-30] MEDS ORDERED: Oxycodone/Acetaminophen 5/325 mg Tab PO PRN (11:25)
[2018-06-30] MEDS ORDERED: Sodium Chloride 0.45% 1,000 ML IV SCH (11:30)
[2018-06-30 12:26] VITALS: PULSE 76; RESP 18; TEMP 97.5; O2SAT 96
[2018-06-30 13:06] VITALS: BP 116/67
--- NOTE | 2018-06-30 19:36 | VASCULAR ---
PROCEDURE: Ultrasound and fluoroscopic right internal jugular venous access port. CLINICAL HISTORY: Metastatic colorectal carcinoma.Venous port for chemotherapy. PHYSICIAN(S): Andrez Becerra M.D. TECHNIQUE: The relative risks and indications of the procedure were explained to the patient and his family and consent obtained. The patient was placed supine on the arteriogram table and the right neck and chest prepped and draped in the usual sterile fashion. Conscious sedation monitoring was provided throughout the procedure by a nurse. Antibiotics were given prior to the procedure. Under direct ultrasound guidance, the right internal jugular vein was punctured with a micro-puncture set. A 0.035 angled Glidewire was advanced into the IVC. A 4 cm incision was made below the right clavicle and the pocket blunted dissected. A 8 Wolof single-lumen catheter, 23 cm long, was advanced to the SVC/RA junction. The catheter was trimmed and attached to the port. The port aspirates and injects easily. The port was placed in the pocket and closed in 2 layers. The patient tolerated the procedure well. IMPRESSION: Ultrasound and fluoroscopically placed right internal jugular venous access port.
== END 2018-06-30 13:27 | disposition home or self-care (01) ==
LOC: SDS 06:27
PROVIDERS: ATTEND Radiology Vascular & Interventional Radiology
DX: Z45.2 Encounter for adjustment and management of vascular access device (principal); C19 Malignant neoplasm of rectosigmoid junction; C78.7 Secondary malignant neoplasm of liver and intrahepatic bile duct; I25.10 Atherosclerotic heart disease of native coronary artery without angina pectoris; I10 Essential (primary) hypertension; F17.200 Nicotine dependence, unspecified, uncomplicated; Z88.0 Allergy status to penicillin
CPT/HCPCS: 36415; 36561; 76937; 77001; 80048; 85025; 85610; 85730; 99152; 99153; C1769; C1788; J0690; J1644; J2250; J2405; J3010; J7030; Q9967

== ENCOUNTER 2018-07-15 08:28 | Inpatient (IN) | payer OTHER ==
[2018-07-15 08:36] VITALS: BMI 21.9
[2018-07-15] MEDS ORDERED: Famotidine 20mg/50ml 20 MG/50 ML BAG IVPB STA (08:42)
[2018-07-15] MEDS ORDERED: Morphine 4 mg/ml ISec IVP STA (08:42)
[2018-07-15] MEDS ORDERED: Iohexol 240 (50 ml) ONE (08:48)
--- NOTE | 2018-07-15 08:55 | ED PDOC ---
Arrival/HPI - General Chief Complaint: Abdominal Pain Time Seen by Provider: 07/15/18 08:34 Historian: Patient - History of Present Illness Narrative History of Present Illness (Text): 07/15/18 08:42 58 year old male, with past medical history of bowel obstruction s/p right hemicolectomy, Stage 3 b Colon cancer metastases to the liver, chronic anemia and DVT (2004), presents to the Emergency department accompanied by family co mplaining of abdominal pain since last night. Patient reports associated diarrhea but denies any nausea or vomiting. Patient states taking oxycodone for the pain this morning with mild improvement to symptoms. Patient denies any other associated somatic complaints. Patient denies any fevers, chills, headache, dizziness, chest pain, shortness of breath, dyspnea on exertion, cough, back pain, neck pain, or any other complaints. Patient states his last chemotherapy was last Friday. PMD: Dr. Peter Oncologist: Dr. Carter GI: Dr. Villagomez Time/Duration: 4-6 hours Symptom Onset: Gradual Symptom Course: Unchanged Quality: Aching Activities at Onset: Light Context: Home Past Medical History - Provider Review Nursing Documentation Reviewed: Yes - Infectious Disease Hx of Infectious Diseases: None - Cardiac Hx Pacemaker: No - Pulmonary Hx Respiratory Disorders: Yes (SMOKES 1/2 PPD) - Neurological Hx Neurological Disorder: No - HEENT Hx HEENT Disorder: Yes (wears glasses) - Renal Hx Renal Disorder: No - Endocrine/Metabolic Hx Endocrine Disorders: No - Hematological/Oncological Hx Blood Disorders: Yes Hx Anemia: Yes - Integumentary Hx Dermatological Disorder: No - Musculoskeletal/Rheumatological Hx Musculoskeletal Disorders: No - Gastrointestinal Hx Gastrointestinal Disorders: Yes (perforated ulcer 6 yrs ago WITH REPAIR.) Other/Comment: SBO,COLON CA WITH LIVER MASS,RIGHT HEMICOLECTOMY - Genitourinary/Gynecological Hx Genitourinary Disorders: No - Psychiatric Hx Anxiety: Yes Hx Emotional Abuse: No Hx Physical Abuse: No Hx Substance Use: No - Surgical History Other/Comment: Perforated intestine 6 yrs ago - Anesthesia Hx Anesthesia Reactions: No Hx Malignant Hyperthermia: No - Suicidal Assessment Feels Threatened In Home Enviroment: No Family/Social History - Physician Review Nursing Documentation Reviewed: Yes Family/Social History: Unknown Family HX Smoking Status: Former Smoker Hx Alcohol Use: Yes (PAST ETOH;"HAD TO STOP NOW") Hx Substance Use: No Allergies/Home Meds Allergies/Adverse Reactions: Allergies Penicillins Allergy (Unknown, Verified 06/18/18 13:25) ANAPHYLAXIS WAS TOLD CHILD Home Medications: Home Meds Medication Instructions Recorded Confirmed Mv-Min/Folic/Vit K/Lycop/Coq10 1 each PO DAILY 06/01/18 07/09/18 [Daily Multivitamin Capsule] amLODIPine [Norvasc] 10 mg PO DAILY 06/01/18 07/09/18 oxyCODONE [oxycodone Hydrochloride] 10 mg PO Q6H PRN 06/18/18 07/09/18 Review of Systems - Physician Review All systems were reviewed & negative as marked: Yes - Review of Systems Constitutional: absent: Fevers Respiratory: absent: SOB, Cough Cardiovascular: absent: Chest Pain, LEONARD Gastrointestinal: Abdominal Pain, Diarrhea. absent: Nausea, Vomiting Genitourinary Male: absent: Dysuria, Urinary Output Changes Musculoskeletal: absent: Back Pain, Neck Pain Skin: absent: Rash Neurological: absent: Headache, Dizziness Physical Exam Vital Signs Reviewed: Yes Vital Signs Temp Pulse Resp BP Pulse Ox 07/15/18 08:28 98.1 F 87 18 120/64 96 Temperature: Afebrile Blood Pressure: Normal Pulse: Regular Respiratory Rate: Normal Appearance: Positive for: Non-Toxic, Comfortable, Other (Jaundice appearing skin) Pain Distress: None Mental Status: Positive for: Alert and Oriented X 3 - Systems Exam Head: Present: Atraumatic, Normocephalic Pupils: Present: PERRL Extroacular Muscles: Present: EOMI Conjunctiva: Present: Icteric Neck: Present: Normal Range of Motion Respiratory/Chest: Present: Clear to Auscultation, Good Air Exchange. No: Respiratory Distress, Accessory Muscle Use Cardiovascular: Present: Regular Rate and Rhythm, Normal S1, S2. No: Murmurs Abdomen: Present: Tenderness (Upper abdominal mass with tenderness and guarding otherwise soft). No: Distention, Peritoneal Signs Back: Present: Normal Inspection Upper Extremity: Present: Normal Inspection. No: Cyanosis, Edema Lower Extremity: Present: Edema (+1 pitting edema bilaterally) Neurological: Present: GCS=15, CN II-XII Intact, Speech Normal Skin: Present: Warm, Dry, Other (Jaundice skin). No: Rashes Psychiatric: Present: Alert, Oriented x 3, Normal Insight, Normal Concentration Medical Decision Making ED Course and Treatment: 07/15/18 08:42 Impression: 58 year old male presents to the Emergency department complaining of abdominal pain associated with mild diarrhea. Differential Diagnosis included but are not limited to: Abdominal pain r/o obstruction Plan: -- VBG -- CT of Liver -- Labs -- Morphine -- Pepcid -- Zofran -- Urinalysis -- Reassess and disposition Prior Visits: Notes and results from previous visits were reviewed. Progress Notes: 07/15/18 12:04 CT of Liver reviewed by radiologist, shows: Redemonstration of hepatomegaly with innumerable hepatic metastases. Dilated small bowel loops compatible with ileus/partial small bowel obstruction. Extensive ascites. 07/15/18 12:16 Discussed case with surgical assist for Dr. Storey, who is aware and will call back after discussion. Dr. Carter and hospitalist paged for consult. 07/15/18 12:[address] Yeboah, hospitalist civil engineering professional, who is aware and agrees with ED management plan, accepts patient under his service. 07/15/18 12:[address] Carter, who is aware and agrees with ED management plan. Does not have any further recommendation at this time. 07/15/18 13:[address] Storey, who does believe patient has a significant sign of obstruction, and states patient does not require surgery at this time. Patient will be admitted for Partial Small Bowel Obstruction and Colon CA with Liver mets to Med/Surg under DdrRoslyn Yeboah for Dr. Peter. - RAD Interpretation Radiology Orders: 07/15/18 08:42 ABD PELVIS PO & IV CONTRAST [CT] Stat - Medication Orders Current Medication Orders: Famotidine (Pepcid 20mg/50ml Premix) 20 mg in 50 mls @ 100 mls/hr IVPB STAT STA Stop: 07/15/18 09:11 Discontinued Medications Morphine Sulfate (Morphine) 4 mg IVP STAT STA Stop: 07/15/18 08:43 Ondansetron HCl (Zofran Inj) 4 mg IVP STAT STA Stop: 07/15/18 08:43 - Scribe Statement The provider has reviewed the documentation as recorded by the Scribe Nicol Edouard. All medical record entries made by the Yuval were at my direction and personally dictated by me. I have reviewed the chart and agree that the record accurately reflects my personal performance of the history, physical exam, medical decision making, and the department course for this patient. I have also personally directed, reviewed, and agree with the discharge instructions and disposition. Disposition/Present on Arrival - Present on Arrival Any Indicators Present on Arrival: No History of DVT/PE: No History of Uncontrolled Diabetes: No Urinary Catheter: No History of Decub. Ulcer: No History Surgical Site Infection Following: None - Disposition Have Diagnosis and Disposition been Completed?: Yes Diagnosis: Partial small bowel obstruction Disposition Time: 12:23 Patient Plan: Admission Condition: FAIR
[2018-07-15 09:15] LABS: VENOUS BLOOD GAS BASE EXCESS 4.5 mmol/L (0.0-2.0); VENOUS BLOOD GAS PO2 93 mm/Hg (30-55); VENOUS BLOOD PH 7.47 (7.32-7.43)
[2018-07-15 09:31] LABS: BASO # 0.03 K/mm3 (0.0-2.0); BASO % 0.2 % (0.0-3.0); EOS # 0.2 (0.0-0.7); EOS % 0.8 % (1.5-5.0); GRAN # 15.59 (1.4-6.5); GRAN % 83.4 % (50.0-68.0); HEMOGLOBIN 10.2 g/dL (14.0-18.0); LYMPH # 1.3 (1.2-3.4); MEAN CELL VOLUME 79.2 fl (80.0-105.0); MEAN CORPUSCULAR HEMOGLOBIN 27.5 pg (25.0-35.0); MEAN CORPUSCULAR HGB CONC 34.7 g/dl (31.0-37.0); MONO # 1.6 (0.1-0.6); MONO % 8.6 % (1.0-6.0); RBC 3.71 10^6/uL (3.5-6.1); RED CELL DISTRIBUTION WIDTH 18.3 % (11.5-14.5); WHITE BLOOD COUNT 18.7 10^3/uL (4.5-11.0)
[2018-07-15 09:34] LABS: INR 1.41; PARTIAL THROMBOPLASTIN TIME 27.8 Seconds (25.1-36.5); PROTHROMBIN TIME 16.3 SECONDS (9.4-12.5)
--- NOTE | 2018-07-15 09:41 | CP.PCM.HP ---
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 Stage T3 N1), bowel obstruction s/p emergent laparotomy resulting in R hemicolectomy tobacco use disorder, chronic anemia and history of DVT (2015) who presents to the emergency room for evaluation and treatment of changing skin color and diarrhea. States symptoms started approximately 1 week ago after starting chemotherapy. States he is experiencing approximately 3-4 loose non-bloody bowel movements in the morning. Admits that his skin and color have been gradually developing yellowish hue. Patient denies fever, chills, night sweat, headache, dizziness, chest pain, shortness of breath, dyspnea on exertion, cough, nausea, vomiting, diarrhea, hematochezia, rectal bleeding, and urinary symptoms. 12 point ROS negative except as indicated in HPI Past medical history: Bowel obstruction s/p emergent laparotomy resulting in R hemicolectomy, Stage 3b colon cancer (locally advanced cecal adenocarcinoma with lymphovascular invasion, Mcdonald II. Stage T3 N1) Chronic anemia, Hx DVT (2015), Tobacco Abuse Past surgical history: right hemicolectomy and adhesiolysis on 04/18/2015 and noted to have locally advanced cecal adenoca with lymphovascular invasion: resection of ileocecal anastomosis with small bowel and transverse colon and evacuation of hematoma on 04/24/2015. Family History: Mother has DM, HTN, Heart disease and dyslipidemia. Maternal aunt has breast cancer. No history of colon cancer. Social Hx: smokes half a pack every day. Drinks socially. Denies use of drugs. Allergies: Penicillin Home Medications: Please see MAR Physical Examination: - Constitutional Appears: No Acute Distress, chronically ill - Head Exam Head Exam: ATRAUMATIC, NORMAL INSPECTION, NORMOCEPHALIC - Eye Exam Eye Exam: EOMI, PERRL, Scleral icterus Pupil Exam: NORMAL ACCOMODATION - ENT Exam ENT Exam: Mucous Membranes Moist - Neck Exam Neck Exam: supple, no JVD - Respiratory Exam Respiratory Exam: Clear to Auscultation Bilateral, NORMAL BREATHING PATTERN. absent: Decreased Breath Sounds, Rales, Rhonchi, Wheezes - Cardiovascular Exam Cardiovascular Exam: REGULAR RHYTHM, +S1, +S2. absent: Systolic Murmur - GI/Abdominal Exam GI & Abdominal Exam: Soft, Distended, Normal Bowel Sounds, Tenderness to palpation, Organomegaly- Liver felt to extend extensively under costal margin absent: Guarding, Rigid, Rebound Tenderness - Extremities Exam Extremities exam: Positive for: normal capillary refill, normal inspection, pe kiki pulses present. Negative for: calf tenderness, pedal edema, tenderness - Back Exam Back exam: absent: CVA tenderness (L), CVA tenderness (R) - Neurological Exam Neurological exam: Alert, CN II-XII Intact, Oriented x3 - Psychiatric Exam Psychiatric exam: Normal Mood, Normal Affect - Skin Skin Exam: Jaundice, port site clean and dry Assessment and Plan: Patient is a 58 year old male with a past medical history significant for Stage 3b Colon cancer (locally advanced cecal adenocarcinoma with lymphdovascular i nvasion, Mcdonald II. Stage T3 N1), bowel obstruction s/p emergent laparotomy resulting in R hemicolectomy, tobacco use disorder, chronic anemia and history of DVT (2014) who presents to the emergency room for evaluation and treatment of changing skin color and diarrhea. Hyperbilirubinemia - likely 2/2 stricture 2/2 colon cancer - Triple phase CT scan ordered and pending - IR consulted for percutaneous transhepatic cholangiography - GI consulted- appreciate recommendations Abdominal Pain, Colon Adenocarcinoma - continue chemotherapy in the outpatient setting - continue home on Oxycodone 10mg q6h prn severe pain - surgery consulted- appreciate recommendations Singultus - baclofen 5mg BID Hx of HTN - continue home amlodipine with holding parameters Tobacco Abuse - dangers of tobacco use provided to patient - smoking cessation advised Patient seen and case discussed with attending, Dr. Carter. Past Patient History - Infectious Disease Hx of Infectious Diseases: None - Past Medical History & Family History Past Medical History?: No - Past Social History Smoking Status: Former Smoker - CARDIAC Hx Pacemaker: No - PULMONARY Hx Respiratory Disorders: Yes (SMOKES 1/2 PPD) - NEUROLOGICAL Hx Neurological Disorder: No - HEENT Hx HEENT Problems: Yes (wears glasses) - RENAL Hx Chronic Kidney Disease: No - ENDOCRINE/METABOLIC Hx Endocrine Disorders: No - HEMATOLOGICAL/ONCOLOGICAL Hx Blood Disorders: Yes Hx Anemia: Yes - INTEGUMENTARY Hx Dermatological Problems: No - MUSCULOSKELETAL/RHEUMATOLOGICAL Hx Musculoskeletal Disorders: No - GASTROINTESTINAL Hx Gastrointestinal Disorders: Yes (perforated ulcer 6 yrs ago WITH REPAIR.) Other/Comment: SBO,COLON CA WITH LIVER MASS,RIGHT HEMICOLECTOMY - GENITOURINARY/GYNECOLOGICAL Hx Genitourinary Disorders: No - PSYCHIATRIC Hx Anxiety: Yes Hx Emotional Abuse: No Hx Physical Abuse: No Hx Substance Use: No - SURGICAL HISTORY Other/Comment: Perforated intestine 6 yrs ago - ANESTHESIA Hx Anesthesia Reactions: No Hx Malignant Hyperthermia: No Meds Allergies/Adverse Reactions: Allergies Allergy/AdvReac Type Severity Reaction Status Date / Time Penicillins Allergy Unknown ANAPHYLAXIS Verified 06/18/18 13:25 Results - Vital Signs Recent Vital Signs: Last Vital Signs Temp 98.1 F 07/15/18 08:28 Pulse 87 07/15/18 08:28 Resp 18 07/15/18 08:28 BP 120/64 07/15/18 08:28 Pulse Ox 96 07/15/18 08:28 - Labs Result Diagrams: 07/15/18 08:45 07/15/18 08:45 Labs: Laboratory Results - last 24 hr 07/15/18 07/15/18 07/15/18 08:45 08:45 08:45 WBC 18.7 H D RBC 3.71 Hgb 10.2 L Hct 29.4 L MCV 79.2 L MCH 27.5 MCHC 34.7 RDW 18.3 H Plt Count 452 H MPV 10.0 Gran % 83.4 H Lymph % (Auto) 7.0 L [place] % (Auto) 8.6 H Eos % (Auto) 0.8 L Baso % (Auto) 0.2 Gran # 15.59 H Lymph # (Auto) 1.3 [place] # (Auto) 1.6 H Eos # (Auto) 0.2 Baso # (Auto) 0.03 PT 16.3 H INR 1.41 APTT 27.8 pO2 93 H VBG pH 7.47 H VBG pCO2 39.0 L VBG HCO3 28.4 H VBG Total CO2 29.6 H VBG O2 Sat (Calc) 99.6 H VBG Base Excess 4.5 H VBG Potassium 2.9 L Sodium 134.0 Chloride 100.0 Glucose 91 Lactate 1.6 FiO2 21.0 Ammonia Venous Blood Potassium 2.9 L 07/15/18 08:45 WBC RBC Hgb Hct MCV MCH MCHC RDW Plt Count MPV Gran % Lymph % (Auto) [place] % (Auto) Eos % (Auto) Baso % (Auto) Gran # Lymph # (Auto) [place] # (Auto) Eos # (Auto) Baso # (Auto) PT INR APTT pO2 VBG pH VBG pCO2 VBG HCO3 VBG Total CO2 VBG O2 Sat (Calc) VBG Base Excess VBG Potassium Sodium Chloride Glucose Lactate FiO2 Ammonia 28 Venous Blood Potassium
[2018-07-15 09:43] LABS: ALB/GLOB RATIO 0.8 (1.1-1.8); ALBUMIN 2.6 g/dL (3.0-4.8); ALT/SGPT 64 U/L (7-56); AST/SGOT 83 U/L (17-59); BLOOD UREA NITROGEN 6 mg/dL (7-21); CALCIUM 8.4 mg/dL (8.4-10.5); GFR NON-AFRICAN AMERICAN > 60; LIPASE 10 U/L (23-300)
[2018-07-15] MEDS ORDERED: Potassium Chloride 20 mEq ER Tab PO STA (09:48)
[2018-07-15 10:16] LABS: PH,URINE 6.5 (4.7-8.0); URINE BILIRUBIN LARGE (NEGATIVE); URINE BLOOD NEGATIVE (NEGATIVE); URINE GLUCOSE (UA) 100 mg/dL (NEGATIVE); URINE LEUKOCYTE ESTERASE NEGATIVE Leu/uL (NEGATIVE); URINE PROTEIN TRACE mg/dL (<30 mg/dL)
[2018-07-15 10:17] LABS: URINE APPEARANCE SL CLOUDY (CLEAR); URINE COLOR LIGHT BROWN (YELLOW)
[2018-07-15 10:19] LABS: URINE BACTERIA MOD (NEG); URINE EPITHELIAL CELLS 0 - 2 /hpf (0-5); URINE RBC NEGATIVE /hpf (0-2)
--- NOTE | 2018-07-15 11:54 | CT ---
Date of service: 07/15/2018 PROCEDURE: CT Abdomen with and without intravenous contrast HISTORY: colon ca with liver mets; with PO IV contrast COMPARISON: None. TECHNIQUE: Axial images of the abdomen from lung bases to iliac crest with and without intravenous contrast enhancement. Coronal and sagittal reformats generated. Oral contrast also administered. Intravenous contrast Dose: Radiation dose: Total exam DLP = 1926.78 mGy-cm. This CT exam was performed using one or more of the following dose reduction techniques: Automated exposure control, adjustment of the mA and/or kV according to patient size, and/or use of iterative reconstruction technique. FINDINGS: LOWER THORAX: Elevated right hemidiaphragm with compressive atelectasis at the right lung base. LIVER: Marked hepatomegaly with innumerable confluent hepatic masses consistent with florid metastatic disease. GALLBLADDER AND BILE DUCTS: Unremarkable. PANCREAS: Unremarkable. No gross lesion or ductal dilatation. SPLEEN: Unremarkable. ADRENALS: Unremarkable. No mass. KIDNEYS AND URETERS: Unremarkable. No hydronephrosis. No solid mass. VASCULATURE: Unremarkable. No aortic aneurysm. No aortic atherosclerotic calcification or mural plaque present. BOWEL: Multiple distended loops of small bowel compatible with ileus/partial small bowel obstruction. Status post right hemicolectomy. APPENDIX: Normal appendix. PERITONEUM: Severe ascites. LYMPH NODES: Unremarkable. No enlarged lymph nodes. BLADDER: Unremarkable. REPRODUCTIVE: Unremarkable. BONES: No acute fracture. OTHER FINDINGS: None. IMPRESSION: Redemonstration of hepatomegaly with innumerable hepatic metastases. Dilated small bowel loops compatible with ileus/partial small bowel obstruction. Extensive ascites.
--- NOTE | 2018-07-15 13:07 | CP.PCM.CON ---
History of Present Illness - History of Present Illness History of Present Illness: General Surgery Consult Note - Dr. Storey HPI: 58 y/o male with PMHx of of colon CA with metastasis to liver s/p right hemicolectomy on 2014 presents to ER with diffuse, constant abdominal pain. Patient has had increasing abdominal distension for the past 3 years between his surgery and now, and recently found out about his metastatic cancer. EMR showed patient without any follow up between 2014 and 2017. Patient states the reason was due to lack of monetary means to pay for medical care. Patient's first chemo was last week. After the tx, patient states he has had increasing jaundice and scleral icterus, which he said the providers involved told him it is a side effect of the chemo. He is unaware of long term care pharmacist treatment plans for his cancer. General surgery being consulted due to liver CT indicating SBO. However, patient states he feels fine when seen and evaluated by general surgery in the ER. Patient endorsed 3 BMs this morning and he has been passing gas. He denies nausea and vomiting. Patient's BM have been light brown and his urine has been dark. Patient's describes his stool like the color of corn flakes. PCP: [facility] Consults: heme onc (Emma), IR (Hernan), surgery (Vicente) ROS: as per HPI PMHx: Bowel obstruction s/p emergent laparotomy resulting in R hemicolectomy, me tastatic colon cancer (locally advanced cecal adenocarcinoma with lymphovascular invasion), DVT (2014), HTN PSHx: right hemicolectomy and adhesiolysis on 04/18/2015, resection of ileocecal anastomosis with small bowel and transverse colon and evacuation of hematoma on 04/24/2015. Performed by Dr. Storey FHx: Denies fhx of colon CA. Mother - DM, HTN, CAD SocHx: Tobacco 1/2 ppd. Quit social EtOH 2 mo ago after CA dx. Denies illicit drug use. Meds: amlodipine, oxycodone, MVI Allergies: PCN Review of Systems - Constitutional Constitutional: As Per HPI Past Patient History - Infectious Disease Hx of Infectious Diseases: None - Past Medical History & Family History Past Medical History?: No - Past Social History Smoking Status: Former Smoker - CARDIAC Hx Pacemaker: No - PULMONARY Hx Respiratory Disorders: Yes (SMOKES 1/2 PPD) - NEUROLOGICAL Hx Neurological Disorder: No - HEENT Hx HEENT Problems: Yes (wears glasses) - RENAL Hx Chronic Kidney Disease: No - ENDOCRINE/METABOLIC Hx Endocrine Disorders: No - HEMATOLOGICAL/ONCOLOGICAL Hx Blood Disorders: Yes Hx Anemia: Yes - INTEGUMENTARY Hx Dermatological Problems: No - MUSCULOSKELETAL/RHEUMATOLOGICAL Hx Musculoskeletal Disorders: No - GASTROINTESTINAL Hx Gastrointestinal Disorders: Yes (perforated ulcer 6 yrs ago WITH REPAIR.) Other/Comment: SBO,COLON CA WITH LIVER MASS,RIGHT HEMICOLECTOMY - GENITOURINARY/GYNECOLOGICAL Hx Genitourinary Disorders: No - PSYCHIATRIC Hx Anxiety: Yes Hx Emotional Abuse: No Hx Physical Abuse: No Hx Substance Use: No - SURGICAL HISTORY Other/Comment: Perforated intestine 6 yrs ago - ANESTHESIA Hx Anesthesia Reactions: No Hx Malignant Hyperthermia: No Meds Allergies/Adverse Reactions: Allergies Allergy/AdvReac Type Severity Reaction Status Date / Time Penicillins Allergy Unknown ANAPHYLAXIS Verified 06/18/18 13:25 - Medications Medications: Current Medications Amlodipine Besylate (Norvasc) 10 mg PO DAILY [facility] Baclofen (Lioresal) 5 mg PO BID [facility] Last Admin: 07/15/18 11:10 Dose: 5 mg Multivitamins/Minerals (Therapeutic-M Tab) 1 tab PO DAILY [facility] Oxycodone HCl (Oxycodone Immediate Release Tab) 10 mg PO Q6H PRN PRN Reason: Pain, severe (8-10) Physical Exam - Constitutional Appears: No Acute Distress - Head Exam Head Exam: ATRAUMATIC, NORMAL INSPECTION, NORMOCEPHALIC - Eye Exam Eye Exam: EOMI, Scleral icterus Pupil Exam: NORMAL ACCOMODATION - ENT Exam Additional comments: poor dentition - Neck Exam Neck exam: Positive for: Normal Inspection. Negative for: Lymphadenopathy, Tenderness Additional comments: no axillary LAD - Respiratory Exam Respiratory Exam: Clear to Auscultation Bilateral, NORMAL BREATHING PATTERN - Cardiovascular Exam Cardiovascular Exam: REGULAR RHYTHM - GI/Abdominal Exam GI & Abdominal Exam: Distended (ascites), Firm, Organomegaly (hepatomegaly). absent: Guarding, Rebound, Soft - Extremities Exam Extremities exam: Positive for: normal capillary refill. Negative for: tenderness Additional comments: 2+ pitting LE edema bilaterally - Neurological Exam Neurological exam: Alert, Oriented x3 - Psychiatric Exam Psychiatric exam: Normal Affect, Normal Mood Results - Vital Signs Recent Vital Signs: Last Vital Signs Temp 98.1 F 07/15/18 08:28 Pulse 92 H 07/15/18 10:15 Resp 18 07/15/18 10:15 BP 129/72 07/15/18 10:15 Pulse Ox 95 07/15/18 10:15 - Labs Result Diagrams: 07/15/18 08:45 07/15/18 08:45 Labs: Laboratory Results - last 24 hr 07/15/18 07/15/18 07/15/18 08:45 08:45 08:45 WBC 18.7 H D RBC 3.71 Hgb 10.2 L Hct 29.4 L MCV 79.2 L MCH 27.5 MCHC 34.7 RDW 18.3 H Plt Count 452 H MPV 10.0 Gran % 83.4 H Lymph % (Auto) 7.0 L [place] % (Auto) 8.6 H Eos % (Auto) 0.8 L Baso % (Auto) 0.2 Gran # 15.59 H Lymph # (Auto) 1.3 [place] # (Auto) 1.6 H Eos # (Auto) 0.2 Baso # (Auto) 0.03 PT 16.3 H INR 1.41 APTT 27.8 pO2 VBG pH VBG pCO2 VBG HCO3 VBG Total CO2 VBG O2 Sat (Calc) VBG Base Excess VBG Potassium Sodium Chloride Glucose Lactate FiO2 Potassium Carbon Dioxide Anion Gap BUN Creatinine Est GFR ( Amer) Est GFR (Non-Af Amer) Random Glucose Calcium Magnesium Total Bilirubin AST ALT Alkaline Phosphatase Ammonia Total Protein Albumin Globulin Albumin/Globulin Ratio Lipase Venous Blood Potassium Urine Color Light brown Urine Appearance Sl cloudy Urine pH 6.5 Ur Specific [place] 1.020 Urine Protein Trace H Urine Glucose (UA) 100 H Urine Ketones Negative Urine Blood Negative Urine Nitrate Negative Urine Bilirubin Large H Urine Urobilinogen 1.0 H Ur Leukocyte Esterase Negative Urine RBC Negative Urine WBC 2 - 5 Ur Epithelial Cells 0 - 2 Urine Bacteria Mod 07/15/18 07/15/18 07/15/18 08:45 08:45 08:45 WBC RBC Hgb Hct MCV MCH MCHC RDW Plt Count MPV Gran % Lymph % (Auto) [place] % (Auto) Eos % (Auto) Baso % (Auto) Gran # Lymph # (Auto) [place] # (Auto) Eos # (Auto) Baso # (Auto) PT INR APTT pO2 93 H VBG pH 7.47 H VBG pCO2 39.0 L VBG HCO3 28.4 H VBG Total CO2 29.6 H VBG O2 Sat (Calc) 99.6 H VBG Base Excess 4.5 H VBG Potassium 2.9 L Sodium 134.0 135 Chloride 100.0 100 Glucose 91 Lactate 1.6 FiO2 21.0 Potassium 3.0 L Carbon Dioxide 28 Anion Gap 11 BUN 6 L Creatinine 0.4 L Est GFR ( Amer) > 60 Est GFR (Non-Af Amer) > 60 Random Glucose 90 Calcium 8.4 Magnesium 1.8 Total Bilirubin 13.7 H AST 83 H ALT 64 H Alkaline Phosphatase 404 H Ammonia 28 Total Protein 6.1 Albumin 2.6 L Globulin 3.5 Albumin/Globulin Ratio 0.8 L Lipase 10 L Venous Blood Potassium 2.9 L Urine Color Urine Appearance Urine pH Ur Specific [place] Urine Protein Urine Glucose (UA) Urine Ketones Urine Blood Urine Nitrate Urine Bilirubin Urine Urobilinogen Ur Leukocyte Esterase Urine RBC Urine WBC Ur Epithelial Cells Urine Bacteria Assessment & Plan - Assessment and Plan (Free Text) Assessment: 58 y/o male with PMHx of metastatic colon CA. General surgery consulted for SBO -CT liver 07/15 was reviewed by general surgery team. It does not show significant stomach distension. Radiographically and symptomatically without need for SBO treatment or decompression. Patient also had BMs today, passing gas, and denies nausea and vomiting. -Recommend IR (Dr. Becerra) for percutaneous transhepatic cholangiography -No surgical intervention at this time. Will continue to monitor patient after IR intervention. -follow IR recs case discussed with Dr. Cordelia Steiner PGY1
--- NOTE | 2018-07-15 14:49 | CP.PCM.HP ---
<Carol Jimenez - Last Filed: 07/15/18 17:25> History of Present Illness - History of Present Illness History of Present Illness: CC: Change in skin color & diarrhea HPI: Patient is a 58 year old male with a past medical history significant for Stage 3b Colon cancer (locally advanced cecal adenocarcinoma with lymphdovascular invasion, [place] II. Stage T3 N1), bowel obstruction s/p emergent laparotomy resulting in R hemicolectomy, tobacco use disorder, chronic anemia and history of DVT (2014) who presents to the emergency room for evaluation and treatment of changing skin color and diarrhea. States symptoms started approximately 1 week ago after starting chemotherapy. States he had approximately 3-4 loose non- bloody bowel movements this morning and is continuing to pass gas. States he is hungry and would like to eat if possible. Admits that his skin has been gradually developing yellowish hue over the past week or so. Patient denies fever, chills, night sweat, headache, dizziness, chest pain, shortness of breath, dyspnea on exertion, cough, nausea, vomiting, diarrhea, hematochezia, rectal bleeding, and urinary symptoms. PMH: Bowel obstruction s/p emergent laparotomy resulting in R hemicolectomy, Stage 3b colon cancer (locally advanced cecal adenocarcinoma with lymphovascular invasion, [place] II. Stage T3 N1) Chronic anemia, Hx DVT (2014), Tobacco Abuse PSH: right hemicolectomy and adhesiolysis on 04/18/2015 and noted to have locally advanced cecal adenocarcinoma with lymphovascular invasion: resection of ileocecal anastomosis with small bowel and transverse colon and evacuation of hematoma on 04/24/2015. Family History: Mother has DM, HTN, Heart disease and dyslipidemia. Maternal aunt has breast cancer. No history of colon cancer. Social Hx: smokes half a pack every day. Drinks socially. Denies use of drugs. Allergies: Penicillin Home Medications: Please see MAR Present on Admission - Present on Admission Any Indicators Present on Admission: No Review of Systems - Review of Systems All systems: reviewed and no additional remarkable complaints except (as per HPI) Past Patient History - Infectious Disease Hx of Infectious Diseases: None - Past Medical History & Family History Past Medical History?: No - Past Social History Smoking Status: Former Smoker - CARDIAC Hx Pacemaker: No - PULMONARY Hx Respiratory Disorders: Yes (SMOKES 1/2 PPD) - NEUROLOGICAL Hx Neurological Disorder: No - HEENT Hx HEENT Problems: Yes (wears glasses) - RENAL Hx Chronic Kidney Disease: No - ENDOCRINE/METABOLIC Hx Endocrine Disorders: No - HEMATOLOGICAL/ONCOLOGICAL Hx Blood Disorders: Yes Hx Anemia: Yes - INTEGUMENTARY Hx Dermatological Problems: No - MUSCULOSKELETAL/RHEUMATOLOGICAL Hx Musculoskeletal Disorders: No - GASTROINTESTINAL Hx Gastrointestinal Disorders: Yes (perforated ulcer 6 yrs ago WITH REPAIR.) Other/Comment: SBO,COLON CA WITH LIVER MASS,RIGHT HEMICOLECTOMY - GENITOURINARY/GYNECOLOGICAL Hx Genitourinary Disorders: No - PSYCHIATRIC Hx Anxiety: Yes Hx Emotional Abuse: No Hx Physical Abuse: No Hx Substance Use: No - SURGICAL HISTORY Other/Comment: Perforated intestine 6 yrs ago - ANESTHESIA Hx Anesthesia Reactions: No Hx Malignant Hyperthermia: No Meds Allergies/Adverse Reactions: Allergies Allergy/AdvReac Type Severity Reaction Status Date / Time Penicillins Allergy Unknown ANAPHYLAXIS Verified 06/18/18 13:25 Physical Exam - Constitutional Appears: Well, Non-toxic, No Acute Distress Additional comments: jaundiced - Head Exam Head Exam: ATRAUMATIC, NORMOCEPHALIC - Eye Exam Eye Exam: EOMI, Scleral icterus - ENT Exam ENT Exam: Mucous Membranes Moist - Respiratory Exam Respiratory Exam: NORMAL BREATHING PATTERN - Cardiovascular Exam Cardiovascular Exam: REGULAR RHYTHM - GI/Abdominal Exam GI & Abdominal Exam: Distended, Organomegaly (hepatomegaly), Soft. absent: Guarding, Tenderness Additional comments: abdomen is distended 2/2 ascites - Extremities Exam Extremities exam: Positive for: pedal edema (1+), pedal pulses present. Negative for: calf tenderness - Neurological Exam Neurological exam: Alert, Oriented x3 - Psychiatric Exam Psychiatric exam: Agitated - Skin Skin Exam: Dry, Intact, Warm Additional comments: diffuse jaundice Results - Vital Signs Recent Vital Signs: Last Vital Signs Temp 98.1 F 07/15/18 08:28 Pulse 81 07/15/18 14:09 Resp 16 07/15/18 14:09 BP 139/66 07/15/18 14:09 Pulse Ox 98 07/15/18 14:09 - Labs Result Diagrams: 07/15/18 08:45 07/15/18 08:45 Labs: Laboratory Results - last 24 hr 07/15/18 07/15/18 07/15/18 08:45 08:45 08:45 WBC 18.7 H D RBC 3.71 Hgb 10.2 L Hct 29.4 L MCV 79.2 L MCH 27.5 MCHC 34.7 RDW 18.3 H Plt Count 452 H MPV 10.0 Gran % 83.4 H Lymph % (Auto) 7.0 L [place] % (Auto) 8.6 H Eos % (Auto) 0.8 L Baso % (Auto) 0.2 Gran # 15.59 H Lymph # (Auto) 1.3 [place] # (Auto) 1.6 H Eos # (Auto) 0.2 Baso # (Auto) 0.03 PT 16.3 H INR 1.41 APTT 27.8 pO2 VBG pH VBG pCO2 VBG HCO3 VBG Total CO2 VBG O2 Sat (Calc) VBG Base Excess VBG Potassium Sodium Chloride Glucose Lactate FiO2 Potassium Carbon Dioxide Anion Gap BUN Creatinine Est GFR ( Amer) Est GFR (Non-Af Amer) Random Glucose Calcium Magnesium Total Bilirubin AST ALT Alkaline Phosphatase Ammonia Total Protein Albumin Globulin Albumin/Globulin Ratio Lipase Venous Blood Potassium Urine Color Light brown Urine Appearance Sl cloudy Urine pH 6.5 Ur Specific [place] 1.020 Urine Protein Trace H Urine Glucose (UA) 100 H Urine Ketones Negative Urine Blood Negative Urine Nitrate Negative Urine Bilirubin Large H Urine Urobilinogen 1.0 H Ur Leukocyte Esterase Negative Urine RBC Negative Urine WBC 2 - 5 Ur Epithelial Cells 0 - 2 Urine Bacteria Mod 07/15/18 07/15/18 07/15/18 08:45 08:45 08:45 WBC RBC Hgb Hct MCV MCH MCHC RDW Plt Count MPV Gran % Lymph % (Auto) [place] % (Auto) Eos % (Auto) Baso % (Auto) Gran # Lymph # (Auto) [place] # (Auto) Eos # (Auto) Baso # (Auto) PT INR APTT pO2 93 H VBG pH 7.47 H VBG pCO2 39.0 L VBG HCO3 28.4 H VBG Total CO2 29.6 H VBG O2 Sat (Calc) 99.6 H VBG Base Excess 4.5 H VBG Potassium 2.9 L Sodium 134.0 135 Chloride 100.0 100 Glucose 91 Lactate 1.6 FiO2 21.0 Potassium 3.0 L Carbon Dioxide 28 Anion Gap 11 BUN 6 L Creatinine 0.4 L Est GFR ( Amer) > 60 Est GFR (Non-Af Amer) > 60 Random Glucose 90 Calcium 8.4 Magnesium 1.8 Total Bilirubin 13.7 H AST 83 H ALT 64 H Alkaline Phosphatase 404 H Ammonia 28 Total Protein 6.1 Albumin 2.6 L Globulin 3.5 Albumin/Globulin Ratio 0.8 L Lipase 10 L Venous Blood Potassium 2.9 L Urine Color Urine Appearance Urine pH Ur Specific [place] Urine Protein Urine Glucose (UA) Urine Ketones Urine Blood Urine Nitrate Urine Bilirubin Urine Urobilinogen Ur Leukocyte Esterase Urine RBC Urine WBC Ur Epithelial Cells Urine Bacteria Assessment & Plan - Assessment and Plan (Free Text) Assessment: Patient is a 58 year old male with a past medical history significant for Stage 3b Colon cancer (locally advanced cecal adenocarcinoma with lymphdovascular invasion, [place] II. Stage T3 N1), bowel obstruction s/p emergent laparotomy resulting in R hemicolectomy, tobacco use disorder, chronic anemia and history of DVT (2014) who presents to the emergency room for evaluation and treatment of changing skin color and diarrhea. Plan: Hyperbilirubinemia - likely 2/2 stricture 2/2 colon cancer - Triple phase CT scan ordered and pending - IR consulted for percutaneous transhepatic cholangiography - GI consulted- appreciate recommendations Abdominal Pain, Colon Adenocarcinoma, metastatic to liver - Oncologist Dr. Carter consulted, chemo per Onc recs, recs appreciated - continue home on Oxycodone 10mg q6h prn for severe pain - surgery consulted for ileus vs SBO- appreciate recommendations - may start CLD as tolerated Singultus - baclofen 5mg BID Hx of HTN - continue home amlodipine with holding parameters in place Tobacco Abuse - dangers of tobacco use provided to patient - smoking cessation advised Patient seen and case discussed with attending, Dr. Ritesh Jimenez, PGy 1 - Date & Time Date: 07/15/18 Time: 12:45 Decision To Admit - Pt Status Changed To: Hospital Disposition Of: Inpatient Admission - Admit Certification Admit to Inpatient:: After my assessment, the patient will require hospitalization for at least two midnights. This is because of the severity of symptoms shown, intensity of services needed, and/or the medical risk in this patient being treated as an outpatient. - . Bed Request Type: Med/Surg Admitting Physician: Naeem Awad <Naeem Awad - Last Filed: 07/19/18 14:45> Results - Vital Signs Recent Vital Signs: Last Vital Signs Temp 98 F 07/19/18 07:59 Pulse 99 H 07/19/18 07:59 Resp 20 07/19/18 07:59 BP 128/79 07/19/18 09:56 Pulse Ox 96 07/19/18 07:59 - Labs Result Diagrams: 07/19/18 06:10 07/19/18 06:10 Labs: Laboratory Results - last 24 hr 07/19/18 07/19/18 06:10 06:10 WBC 16.7 H RBC 2.94 L Hgb 8.3 L Hct 24.7 L MCV 84.0 MCH 28.2 MCHC 33.6 RDW 21.2 H Plt Count 506 H MPV 9.3 Gran % 89.2 H Lymph % (Auto) 4.1 L [place] % (Auto) 5.8 Eos % (Auto) 0.7 L Baso % (Auto) 0.2 Gran # 14.92 H Lymph # (Auto) 0.7 L [place] # (Auto) 1.0 H Eos # (Auto) 0.1 Baso # (Auto) 0.04 Sodium 129 L Potassium 3.6 Chloride 97 L Carbon Dioxide 26 Anion Gap 9 L BUN 10 Creatinine 0.4 L Est GFR ( Amer) > 60 Est GFR (Non-Af Amer) > 60 Random Glucose 82 Calcium 7.9 L Total Bilirubin 10.2 H AST 73 H ALT 48 Alkaline Phosphatase 210 H Total Protein 5.3 L Albumin 2.2 L Globulin 3.1 Albumin/Globulin Ratio 0.7 L Attending/Attestation - Attestation I have personally seen and examined this patient.: Yes I have fully participated in the care of the patient.: Yes I have reviewed all pertinent clinical information: Yes Notes (Text): 07/19/18 14:41 attending note; Patient seen and examined with resident in ER. Patient's Mother and sister by the bedside. Patient is a 58 year old male with a past medical history significant for Stage 3b Colon cancer (locally advanced cecal adenocarcinoma with lymphdovascular invasion, bowel obstruction s/p emergent laparotomy resulting in R hemicolectomy, tobacco use disorder, chronic anemia and history of DVT (2015) Admitted for worsening diarrhea and elevated LFTs. 1. Patient has multiple metastatic lesion in the liver. Possible obstruction of the biliary tree suspected. Case discussed with interventional radiologist in detail. Plan for cholangiogram and stent placement.Started on clear liquid diet. 2. Ileus; CT abdomen and pelvis reviewed with surgery. No bowel obstruction suspected. Patient is having bowel movement. Continue clear liquid diet and monitored closely. GI evaluation requested. 3. Acute abdominal pain; secondary to metastatic colon cancer. Continue IV Dilaudid. follow Up with oncology closely. upon discharge the patient will follow up with Michael Peter.
--- NOTE | 2018-07-15 14:55 | CP.PCM.CON ---
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 Stage T3 N1), bowel obstruction s/p emergent laparotomy resulting in R hemicolectomy tobacco use disorder, chronic anemia and history of DVT (2014) who presents to the emergency room for evaluation and treatment of changing skin color and diarrhea. States symptoms started approximately 1 week ago after starting chemotherapy. States he is experiencing approximately 3-4 loose non-bloody bowel movements in the morning. Admits that his skin and color have been gradually developing yellowish hue. Patient denies fever, chills, night sweat, headache, dizziness, chest pain, shortness of breath, dyspnea on exertion, cough, nausea, vomiting, diarrhea, hematochezia, rectal bleeding, and urinary symptoms. 12 point ROS negative except as indicated in HPI Past medical history: Bowel obstruction s/p emergent laparotomy resulting in R hemicolectomy, Stage 3b colon cancer (locally advanced cecal adenocarcinoma with lymphovascular invasion, [place] II. Stage T3 N1) Chronic anemia, Hx DVT (2014), Tobacco Abuse Past surgical history: right hemicolectomy and adhesiolysis on 04/18/2015 and noted to have locally advanced cecal adenoca with lymphovascular invasion: resection of ileocecal anastomosis with small bowel and transverse colon and evacuation of hematoma on 04/24/2015. Family History: Mother has DM, HTN, Heart disease and dyslipidemia. Maternal aunt has breast cancer. No history of colon cancer. Social Hx: smokes half a pack every day. Drinks socially. Denies use of drugs. Allergies: Penicillin Home Medications: Please see MAR Physical Examination: - Constitutional Appears: No Acute Distress, chronically ill - Head Exam Head Exam: ATRAUMATIC, NORMAL INSPECTION, NORMOCEPHALIC - Eye Exam Eye Exam: EOMI, PERRL, Scleral icterus Pupil Exam: NORMAL ACCOMODATION - ENT Exam ENT Exam: Mucous Membranes Moist - Neck Exam Neck Exam: supple, no JVD - Respiratory Exam Respiratory Exam: Clear to Auscultation Bilateral, NORMAL BREATHING PATTERN. absent: Decreased Breath Sounds, Rales, Rhonchi, Wheezes - Cardiovascular Exam Cardiovascular Exam: REGULAR RHYTHM, +S1, +S2. absent: Systolic Murmur - GI/Abdominal Exam GI & Abdominal Exam: Soft, Distended, Normal Bowel Sounds, Tenderness to palpation, Organomegaly- Liver felt to extend extensively under costal margin absent: Guarding, Rigid, Rebound Tenderness - Extremities Exam Extremities exam: Positive for: normal capillary refill, normal inspection, pedal pulses present. 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 Stage T3 N1), bowel obstruction s/p emergent laparotomy resulting in R hemicolectomy, tobacco use disorder, chronic anemia and history of DVT (2014) who presents to the emergency room for evaluation and treatment of changing skin color and diarrhea. Hyperbilirubinemia - likely 2/2 stricture 2/2 colon cancer - Triple phase CT scan ordered and pending - IR consulted for percutaneous transhepatic cholangiography - GI consulted- appreciate recommendations Abdominal Pain, Colon Adenocarcinoma - continue chemotherapy in the outpatient setting - continue home on Oxycodone 10mg q6h prn severe pain - surgery consulted- appreciate recommendations Singultus - baclofen 5mg BID Hx of HTN - continue home amlodipine with holding parameters Tobacco Abuse - dangers of tobacco use provided to patient - smoking cessation advised Patient seen and case discussed with attending, Dr. Carter. Past Patient History - Infectious Disease Hx of Infectious Diseases: None - Past Medical History & Family History Past Medical History?: No - Past Social History Smoking Status: Former Smoker - CARDIAC Hx Pacemaker: No - PULMONARY Hx Respiratory Disorders: Yes (SMOKES 1/2 PPD) - NEUROLOGICAL Hx Neurological Disorder: No - HEENT Hx HEENT Problems: Yes (wears glasses) - RENAL Hx Chronic Kidney Disease: No - ENDOCRINE/METABOLIC Hx Endocrine Disorders: No - HEMATOLOGICAL/ONCOLOGICAL Hx Blood Disorders: Yes Hx Anemia: Yes - INTEGUMENTARY Hx Dermatological Problems: No - MUSCULOSKELETAL/RHEUMATOLOGICAL Hx Musculoskeletal Disorders: No - GASTROINTESTINAL Hx Gastrointestinal Disorders: Yes (perforated ulcer 6 yrs ago WITH REPAIR.) Other/Comment: SBO,COLON [place] WITH LIVER MASS,RIGHT HEMICOLECTOMY - GENITOURINARY/GYNECOLOGICAL Hx Genitourinary Disorders: No - PSYCHIATRIC Hx Anxiety: Yes Hx Emotional Abuse: No Hx Physical Abuse: No Hx Substance Use: No - SURGICAL HISTORY Other/Comment: Perforated intestine 6 yrs ago - ANESTHESIA Hx Anesthesia Reactions: No Hx Malignant Hyperthermia: No Meds Allergies/Adverse Reactions: Allergies Allergy/AdvReac Type Severity Reaction Status Date / Time Penicillins Allergy Unknown ANAPHYLAXIS Verified 06/18/18 13:25 - Medications Medications: Current Medications Amlodipine Besylate (Norvasc) 10 mg PO DAILY [facility] Baclofen (Lioresal) 5 mg PO BID JOSEFINA Last Admin: 07/15/18 11:10 Dose: 5 mg Multivitamins/Minerals (Therapeutic-M Tab) 1 tab PO DAILY [facility] Ondansetron HCl (Zofran Inj) 4 mg IVP Q4H PRN PRN Reason: Nausea/Vomiting Oxycodone HCl (Oxycodone Immediate Release Tab) 10 mg PO Q6H PRN PRN Reason: Pain, severe (8-10) Results - Vital Signs Recent Vital Signs: Last Vital Signs Temp 98.1 F 07/15/18 08:28 Pulse 81 07/15/18 14:09 Resp 16 07/15/18 14:09 BP 139/66 07/15/18 14:09 Pulse Ox 98 07/15/18 14:09 - Labs Result Diagrams: 07/15/18 08:45 07/15/18 08:45 Labs: Laboratory Results - last 24 hr 07/15/18 07/15/18 07/15/18 08:45 08:45 08:45 WBC 18.7 H D RBC 3.71 Hgb 10.2 L Hct 29.4 L MCV 79.2 L MCH 27.5 MCHC 34.7 RDW 18.3 H Plt Count 452 H MPV 10.0 Gran % 83.4 H Lymph % (Auto) 7.0 L [place] % (Auto) 8.6 H Eos % (Auto) 0.8 L Baso % (Auto) 0.2 Gran # 15.59 H Lymph # (Auto) 1.3 [place] # (Auto) 1.6 H Eos # (Auto) 0.2 Baso # (Auto) 0.03 PT 16.3 H INR 1.41 APTT 27.8 pO2 VBG pH VBG pCO2 VBG HCO3 VBG Total CO2 VBG O2 Sat (Calc) VBG Base Excess VBG Potassium Sodium Chloride Glucose Lactate FiO2 Potassium Carbon Dioxide Anion Gap BUN Creatinine Est GFR ( Amer) Est GFR (Non-Af Amer) Random Glucose Calcium Magnesium Total Bilirubin AST ALT Alkaline Phosphatase Ammonia Total Protein Albumin Globulin Albumin/Globulin Ratio Lipase Venous Blood Potassium Urine Color Light brown Urine Appearance Sl cloudy Urine pH 6.5 Ur Specific [place] 1.020 Urine Protein Trace H Urine Glucose (UA) 100 H Urine Ketones Negative Urine Blood Negative Urine Nitrate Negative Urine Bilirubin Large H Urine Urobilinogen 1.0 H Ur Leukocyte Esterase Negative Urine RBC Negative Urine WBC 2 - 5 Ur Epithelial Cells 0 - 2 Urine Bacteria Mod 07/15/18 07/15/18 07/15/18 08:45 08:45 08:45 WBC RBC Hgb Hct MCV MCH MCHC RDW Plt Count MPV Gran % Lymph % (Auto) [place] % (Auto) Eos % (Auto) Baso % (Auto) Gran # Lymph # (Auto) [place] # (Auto) Eos # (Auto) Baso # (Auto) PT INR APTT pO2 93 H VBG pH 7.47 H VBG pCO2 39.0 L VBG HCO3 28.4 H VBG Total CO2 29.6 H VBG O2 Sat (Calc) 99.6 H VBG Base Excess 4.5 H VBG Potassium 2.9 L Sodium 134.0 135 Chloride 100.0 100 Glucose 91 Lactate 1.6 FiO2 21.0 Potassium 3.0 L Carbon Dioxide 28 Anion Gap 11 BUN 6 L Creatinine 0.4 L Est GFR ( Amer) > 60 Est GFR (Non-Af Amer) > 60 Random Glucose 90 Calcium 8.4 Magnesium 1.8 Total Bilirubin 13.7 H AST 83 H ALT 64 H Alkaline Phosphatase 404 H Ammonia 28 Total Protein 6.1 Albumin 2.6 L Globulin 3.5 Albumin/Globulin Ratio 0.8 L Lipase 10 L Venous Blood Potassium 2.9 L Urine Color Urine Appearance Urine pH Ur Specific [place] Urine Protein Urine Glucose (UA) Urine Ketones Urine Blood Urine Nitrate Urine Bilirubin Urine Urobilinogen Ur Leukocyte Esterase Urine RBC Urine WBC Ur Epithelial Cells Urine Bacteria <Emma,Devarajan P - Last Filed: 07/18/18 20:16> Meds - Medications Medications: Current Medications Acetaminophen (Tylenol 325mg Tab) 650 mg PO Q4 PRN PRN Reason: Pain, Mild (1-3) Amlodipine Besylate (Norvasc) 10 mg PO DAILY [facility] Last Admin: 07/18/18 10:37 Dose: 10 mg Enoxaparin Sodium (Lovenox) 30 mg SC DAILY [facility]; Protocol Last Admin: 07/18/18 10:37 Dose: 30 mg Hydromorphone HCl (Dilaudid) 2 mg IVP Q4H PRN PRN Reason: Pain, severe (8-10) Last Admin: 07/18/18 19:35 Dose: 2 mg Sodium Chloride (Sodium Chloride 0.9%) 1,000 mls @ 120 mls/hr IV .[id number] JOSEFINA Last Admin: 07/18/18 10:37 Dose: 120 mls/hr Multivitamins/Minerals (Therapeutic-M Tab) 1 tab PO DAILY [facility] Last Admin: 07/18/18 10:37 Dose: 1 tab Ondansetron HCl (Zofran Inj) 4 mg IVP Q4H PRN PRN Reason: Nausea/Vomiting Oxycodone HCl (Oxycodone Immediate Release Tab) 10 mg PO Q6H PRN PRN Reason: Pain, moderate (4-7) Last Admin: 07/18/18 04:07 Dose: 10 mg Results - Vital Signs Recent Vital Signs: Last Vital Signs Temp 99.2 F 07/18/18 16:55 Pulse 107 H 07/18/18 16:55 Resp 19 07/18/18 16:55 BP 122/81 07/18/18 16:55 Pulse Ox 92 L 07/18/18 16:55 - Labs Result Diagrams: 07/18/18 06:00 07/18/18 06:00 Labs: Laboratory Results - last 24 hr 07/18/18 07/18/18 06:00 06:00 WBC 20.7 H RBC 3.06 L Hgb 8.6 L Hct 25.4 L MCV 83.0 MCH 28.1 MCHC 33.9 RDW 20.6 H Plt Count 548 H MPV 9.4 Gran % 90.4 H Lymph % (Auto) 5.2 L [place] % (Auto) 3.4 Eos % (Auto) 0.9 L Baso % (Auto) 0.1 Gran # 18.68 H Lymph # (Auto) 1.1 L [place] # (Auto) 0.7 H Eos # (Auto) 0.2 Baso # (Auto) 0.03 Neutrophils % (Manual) 88 H Lymphocytes % (Manual) 9 L Monocytes % (Manual) 2 Eosinophils % (Manual) 1 Platelet Evaluation High Hypochromasia Slight Anisocytosis (manual) Slight Sodium 133 Potassium 3.3 L Chloride 100 Carbon Dioxide 27 Anion Gap 9 L BUN 10 Creatinine 0.4 L Est GFR ( Amer) > 60 Est GFR (Non-Af Amer) > 60 Random Glucose 65 L Calcium 8.1 L Total Bilirubin 8.7 H Direct Bilirubin 7.5 H AST 86 H ALT 43 Alkaline Phosphatase 244 H Total Protein 5.4 L Albumin 2.4 L Globulin 2.9 Albumin/Globulin Ratio 0.8 L Attending/Attestation - Attestation I have personally seen and examined this patient.: Yes I have fully participated in the care of the patient.: Yes I have reviewed all pertinent clinical information: Yes
[2018-07-15] MEDS ORDERED: Pneumococcal 23-Valent Vaccine IM ONE (17:14)
[2018-07-15] MEDS ORDERED: Influenza Vaccine 60 mcg/0.5 mL SYR (4YR UP) IM ONE (17:14)
--- NOTE | 2018-07-15 20:20 | CARD ---
APPROVED REPORT Date of service: 07/15/2018 EKG Measurement Heart [id number] <Conclusion> Normal sinus rhythm Normal ECG
[2018-07-15] MEDS: oxyCODONE 10 mg Immediate Release Tab PO PRN (22:13)
[2018-07-16] MEDS: oxyCODONE 10 mg Immediate Release Tab PO PRN (05:40)
[2018-07-16 07:16] LABS: BASO # 0.06 K/mm3 (0.0-2.0); BASO % 0.3 % (0.0-3.0); EOS # 0.2 (0.0-0.7); EOS % 1.2 % (1.5-5.0); GRAN # 14.33 (1.4-6.5); GRAN % 81.5 % (50.0-68.0); HEMOGLOBIN 9.8 g/dL (14.0-18.0); LYMPH # 1.8 (1.2-3.4); LYMPH % 10.3 % (22.0-35.0); MEAN CELL VOLUME 80.5 fl (80.0-105.0); MEAN CORPUSCULAR HEMOGLOBIN 27.7 pg (25.0-35.0); MEAN CORPUSCULAR HGB CONC 34.4 g/dl (31.0-37.0); MEAN PLATELET VOLUME 9.7 fl (7.0-11.0); MONO # 1.2 (0.1-0.6); MONO % 6.7 % (1.0-6.0); RBC 3.54 10^6/uL (3.5-6.1); RED CELL DISTRIBUTION WIDTH 18.8 % (11.5-14.5); WHITE BLOOD COUNT 17.6 10^3/uL (4.5-11.0)
[2018-07-16 07:19] LABS: ALB/GLOB RATIO 0.8 (1.1-1.8); ALBUMIN 2.4 g/dL (3.0-4.8); ALT/SGPT 56 U/L (7-56); AST/SGOT 75 U/L (17-59); BLOOD UREA NITROGEN 7 mg/dL (7-21); CALCIUM 8.3 mg/dL (8.4-10.5); GFR NON-AFRICAN AMERICAN > 60; INR 1.44; PARTIAL THROMBOPLASTIN TIME 27.6 Seconds (25.1-36.5); PROTHROMBIN TIME 16.7 SECONDS (9.4-12.5)
[2018-07-16] MEDS: Sodium Chloride 0.9% 1,000 ML IV SCH ×2 (08:57→22:14)
--- NOTE | 2018-07-16 09:14 | CP.PCM.PN ---
Subjective - Date & Time of Evaluation Date of Evaluation: 07/16/18 Time of Evaluation: 08:59 - Subjective Subjective: PGY-[address] Storey Patient seen and examined at bedside. No acute events overnight per nursing. Patient continues to pass gas, is having bowel movements. Patient is tolerating a liquid diet. No additional complaints at this time. Objective - Vital Signs/Intake and Output Vital Signs (last 24 hours): Temp Pulse Resp BP Pulse Ox 98.2 F 79 18 125/82 97 07/15/18 18:25 07/15/18 18:25 07/15/18 18:25 07/15/18 18:25 07/15/18 18:25 Intake and Output: 07/16/18 07/16/18 06:59 18:59 Intake Total 360 Balance 360 - Medications Medications: Current Medications Amlodipine Besylate (Norvasc) 10 mg PO DAILY [facility] Baclofen (Lioresal) 5 mg PO BID [facility] Last Admin: 07/15/18 17:45 Dose: 5 mg Sodium Chloride (Sodium Chloride 0.9%) 1,000 mls @ 120 mls/hr IV .Q8H20M [facility] Multivitamins/Minerals (Therapeutic-M Tab) 1 tab PO DAILY [facility] Ondansetron HCl (Zofran Inj) 4 mg IVP Q4H PRN PRN Reason: Nausea/Vomiting Oxycodone HCl (Oxycodone Immediate Release Tab) 10 mg PO Q6H PRN PRN Reason: Pain, severe (8-10) Last Admin: 07/16/18 05:40 Dose: 10 mg Prochlorperazine (Compazine Tab) 10 mg PO Q8 PRN PRN Reason: Hiccups Last Admin: 07/16/18 05:09 Dose: 10 mg - Labs Labs: 07/16/18 06:15 07/16/18 06:15 PT 16.7 SECONDS (9.4-12.5) H 07/16/18 06:15 INR 1.44 07/16/18 06:15 APTT 27.6 Seconds (25.1-36.5) 07/16/18 06:15 - Constitutional Appears: No Acute Distress - Head Exam Head Exam: ATRAUMATIC, NORMAL INSPECTION - Eye Exam Eye Exam: EOMI, Scleral icterus - ENT Exam ENT Exam: Mucous Membranes Moist - Neck Exam Neck Exam: Normal Inspection - Respiratory Exam Respiratory Exam: Clear to Ausculation Bilateral, NORMAL BREATHING PATTERN. absent: Rales, Rhonchi, Wheezes - Cardiovascular Exam Cardiovascular Exam: REGULAR RHYTHM - GI/Abdominal Exam GI & Abdominal Exam: Distended (ascitic fluid noted), Soft. absent: Guarding, Rebound - Extremities Exam Extremities Exam: Pedal Edema - Neurological Exam Neurological Exam: Alert, Awake, Oriented x3 - Psychiatric Exam Psychiatric exam: Normal Affect, Normal Mood - Skin Skin Exam: Dry, Warm Additional comments: Jaundiced Assessment and Plan - Assessment and Plan (Free Text) Assessment: 58 year old male with PMHx metastatic colon CA Patient having is passing gas, having bowel movements, tolerating liquid diets No surgical intervention indicated at this time IR consulted, will follow up results of percutaneous transhepatic cholagiography Surgery will continue to follow Jerson Sheehan, PGY-1
--- NOTE | 2018-07-16 09:46 | CP.PCM.PN ---
<UriahLionel - Last Filed: 07/16/18 15:37> Subjective - Date & Time of Evaluation Date of Evaluation: 07/16/18 Time of Evaluation: 09:00 - Subjective Subjective: Lionel Kruse Internal Medicine Resident- Progress Note on Behalf of Hematology/Oncology Subjective: Patient is seen and examined at bedside. No acute events overnight. Patient states that his hiccups are worse today. Abdominal discomfort remains at baseline. Patient denies fever, chills, night sweat, headache, dizziness, chest pain, shortness of breath, dyspnea on exertion, cough, nausea, vomiting, diarrhea, hematochezia, rectal bleeding, and urinary symptoms. 12 point ROS negative except as indicated in HPI Physical Examination: - Constitutional Appears: No Acute Distress, chronically ill - Head Exam Head Exam: ATRAUMATIC, NORMAL INSPECTION, NORMOCEPHALIC - Eye Exam Eye Exam: EOMI, PERRL, Scleral icterus Pupil Exam: NORMAL ACCOMODATION - ENT Exam ENT Exam: Mucous Membranes Moist - Neck Exam Neck Exam: supple, no JVD - Respiratory Exam Respiratory Exam: Clear to Auscultation Bilateral, NORMAL BREATHING PATTERN. absent: Decreased Breath Sounds, Rales, Rhonchi, Wheezes - Cardiovascular Exam Cardiovascular Exam: REGULAR RHYTHM, +S1, +S2. absent: Systolic Murmur - GI/Abdominal Exam GI & Abdominal Exam: Soft, Distended, Normal Bowel Sounds, Tenderness to palpation, Organomegaly- Liver felt to extend extensively under costal margin absent: Guarding, Rigid, Rebound Tenderness - Extremities Exam Extremities exam: Positive for: normal capillary refill, normal inspection, pedal pulses present. Negative for: calf tenderness, pedal edema, tenderness - Back Exam Back exam: absent: CVA tenderness (L), CVA tenderness (R) - Neurological Exam Neurological exam: Alert, CN II-XII Intact, Oriented x3 - Psychiatric Exam Psychiatric exam: Normal Mood, Normal Affect - Skin Skin Exam: Jaundice, port site clean and dry Assessment and Plan: Patient is a 58 year old male with a past medical history significant for Stage 3b Colon cancer (locally advanced cecal adenocarcinoma with lymphdovascular invasion, Grady II. Stage T3 N1), bowel obstruction s/p emergent laparotomy resulting in R hemicolectomy, tobacco use disorder, chronic anemia and history of DVT (2014) who presents to the emergency room for evaluation and treatment of changing skin color and diarrhea. Hyperbilirubinemia - likely 2/2 stricture 2/2 colon cancer - 07/15/[address] scan- Redemonstration of hepatomegaly with innumerable hepatic metastases. Dilated small bowel loops compatible with ileus/partial small bowel obstruction. Extensive ascites - IR consulted for percutaneous transhepatic cholangiography, scheduled for 07/16/2018 Abdominal Pain, Colon Adenocarcinoma - continue chemotherapy in the outpatient setting - continue home on Oxycodone 10mg q6h prn severe pain - surgery consulted- appreciate recommendations Singultus - baclofen 5mg BID changed to 5m TID Hx of HTN - continue home amlodipine with holding parameters Tobacco Abuse - dangers of tobacco use provided to patient - smoking cessation advised Please make note this is a complex patient with multiple comorbid medical issues. We will continue to monitor the patient patient aggressively. Case thoroughly discussed with patient's family with patient's permission. Time spend with the patient is greater than 45 minutes. Patient seen and case discussed with attending, Dr. Carter. Objective - Vital Signs/Intake and Output Vital Signs (last 24 hours): Temp Pulse Resp BP Pulse Ox 97.8 F 76 20 118/75 95 07/16/18 09:04 07/16/18 09:04 07/16/18 09:04 07/16/18 09:04 07/16/18 09:04 Intake and Output: 07/16/18 07/16/18 06:59 18:59 Intake Total 360 Balance 360 - Medications Medications: Current Medications Amlodipine Besylate (Norvasc) 10 mg PO DAILY [facility] [place] Baclofen (Lioresal) 5 mg PO BID [facility] Last Admin: 07/15/18 17:45 Dose: 5 mg Sodium Chloride (Sodium Chloride 0.9%) 1,000 mls @ 120 mls/hr IV .Q8H20M [facility] Last Admin: 07/16/18 08:57 Dose: 120 mls/hr Multivitamins/Minerals (Therapeutic-M Tab) 1 tab PO DAILY [facility] Ondansetron HCl (Zofran Inj) 4 mg IVP Q4H PRN PRN Reason: Nausea/Vomiting Oxycodone HCl (Oxycodone Immediate Release Tab) 10 mg PO Q6H PRN PRN Reason: Pain, severe (8-10) Last Admin: 07/16/18 05:40 Dose: 10 mg Prochlorperazine (Compazine Tab) 10 mg PO Q8 PRN PRN Reason: Hiccups Last Admin: 07/16/18 05:09 Dose: 10 mg - Labs Labs: 07/16/18 06:15 07/16/18 06:15 PT 16.7 SECONDS (9.4-12.5) H 07/16/18 06:15 INR 1.44 07/16/18 06:15 APTT 27.6 Seconds (25.1-36.5) 07/16/18 06:15 <Nancy Carter P - Last Filed: 07/18/18 20:09> Objective - Vital Signs/Intake and Output Vital Signs (last 24 hours): Temp Pulse Resp BP Pulse Ox 99.2 F 107 H 19 122/81 92 L 07/18/18 16:55 07/18/18 16:55 07/18/18 16:55 07/18/18 16:55 07/18/18 16:55 Intake and Output: 07/18/18 07/19/18 18:59 06:59 Intake Total 4680 Output Total 2150 Balance 2530 - Medications Medications: Current Medications Acetaminophen (Tylenol 325mg Tab) 650 mg PO Q4 PRN PRN Reason: Pain, Mild (1-3) Amlodipine Besylate (Norvasc) 10 mg PO DAILY [facility] Last Admin: 07/18/18 10:37 Dose: 10 mg Enoxaparin Sodium (Lovenox) 30 mg SC DAILY [facility]; Protocol Last Admin: 07/18/18 10:37 Dose: 30 mg Hydromorphone HCl (Dilaudid) 2 mg IVP Q4H PRN PRN Reason: Pain, severe (8-10) Last Admin: 07/18/18 19:35 Dose: 2 mg Sodium Chloride (Sodium Chloride 0.9%) 1,000 mls @ 120 mls/hr IV .Q8H20M [facility] Last Admin: 07/18/18 10:37 Dose: 120 mls/hr Multivitamins/Minerals (Therapeutic-M Tab) 1 tab PO DAILY [facility] Last Admin: 07/18/18 10:37 Dose: 1 tab Ondansetron HCl (Zofran Inj) 4 mg IVP Q4H PRN PRN Reason: Nausea/Vomiting Oxycodone HCl (Oxycodone Immediate Release Tab) 10 mg PO Q6H PRN PRN Reason: Pain, moderate (4-7) Last Admin: 07/18/18 04:07 Dose: 10 mg - Labs Labs: 07/18/18 06:00 07/18/18 06:00 PT 16.7 SECONDS (9.4-12.5) H 07/16/18 06:15 INR 1.44 07/16/18 06:15 APTT 27.6 Seconds (25.1-36.5) 07/16/18 06:15 Attending/Attestation - Attestation I have personally seen and examined this patient.: Yes I have fully participated in the care of the patient.: Yes I have reviewed all pertinent clinical information, including history, physical exam and plan: Yes
[2018-07-16] MEDS: Multivitamin With Minerals Tab PO SCH (10:05)
[2018-07-16] MEDS ORDERED: Iodixanol 320 MG/ML 100 ML BOTTLE IV ONE (12:31)
[2018-07-16] MEDS ORDERED: Lidocaine 2% Inj (20ml) ONE ×2 (12:31→13:39)
[2018-07-16] MEDS ORDERED: Midazolam 2 MG/2 ML VIAL ONE ×3 (13:00→13:53)
[2018-07-16] MEDS ORDERED: Vancomycin 500 mg (Oral/Rectal USE) ONE (13:08)
[2018-07-16] MEDS ORDERED: DiphenhydrAMINE 50 mg/ml Inj ONE (13:42)
[2018-07-16] MEDS ORDERED: Oxycodone/Acetaminophen 5/325 mg Tab PO PRN (14:15)
--- NOTE | 2018-07-16 14:44 | CP.PCM.PN ---
<Carol Jimenez - Last Filed: 07/16/18 20:31> Subjective - Date & Time of Evaluation Date of Evaluation: 07/16/18 Time of Evaluation: 09:30 - Subjective Subjective: Internal Medicine progress note for Dr. Awad Patient seen and examined this am at bedside. NAEO per nursing. Patient is resting comfortably and states that his pain has been well controlled. He is aware that he will be going for IR procedure today and is looking forward to improving. He otherwise denies ZUÑIGA, CP, SOB, increasing abdominal pain, f/c and extremity pain or weakness. Objective - Vital Signs/Intake and Output Vital Signs (last 24 hours): Temp Pulse Resp BP Pulse Ox 97.8 F 81 20 140/78 99 07/16/18 14:34 07/16/18 14:34 07/16/18 14:34 07/16/18 14:34 07/16/18 14:34 Intake and Output: 07/16/18 07/16/18 06:59 18:59 Intake Total 360 Balance 360 - Medications Medications: Current Medications Acetaminophen (Tylenol 325mg Tab) 650 mg PO Q4 PRN PRN Reason: Pain, Mild (1-3) Amlodipine Besylate (Norvasc) 10 mg PO DAILY [facility] Last Admin: 07/16/18 10:03 Dose: 10 mg Baclofen (Lioresal) 5 mg PO TID [facility] Hydromorphone HCl (Dilaudid) 2 mg IVP Q4H PRN PRN Reason: Pain, severe (8-10) Sodium Chloride (Sodium Chloride 0.9%) 1,000 mls @ 120 mls/hr IV .Q8H20M [facility] Last Admin: 07/16/18 08:57 Dose: 120 mls/hr Multivitamins/Minerals (Therapeutic-M Tab) 1 tab PO DAILY [facility] Last Admin: 07/16/18 10:05 Dose: 1 tab Ondansetron HCl (Zofran Inj) 4 mg IVP Q4H PRN PRN Reason: Nausea/Vomiting Oxycodone HCl (Oxycodone Immediate Release Tab) 10 mg PO Q6H PRN PRN Reason: Pain, severe (8-10) Last Admin: 07/16/18 05:40 Dose: 10 mg Oxycodone/Acetaminophen (Percocet 5/325 Mg Tab) 1 tab PO Q4H PRN PRN Reason: Pain, moderate (4-7) Stop: 07/19/18 14:16 Prochlorperazine (Compazine Tab) 10 mg PO Q8 PRN PRN Reason: Hiccups Last Admin: 07/16/18 05:09 Dose: 10 mg - Labs Labs: 07/16/18 06:15 07/16/18 06:15 PT 16.7 SECONDS (9.4-12.5) H 07/16/18 06:15 INR 1.44 07/16/18 06:15 APTT 27.6 Seconds (25.1-36.5) 07/16/18 06:15 - Constitutional Appears: Non-toxic, No Acute Distress, Cachectic, Chronically Ill - Head Exam Head Exam: ATRAUMATIC, NORMOCEPHALIC - Eye Exam Eye Exam: EOMI, Scleral icterus - ENT Exam ENT Exam: Mucous Membranes Moist - Respiratory Exam Respiratory Exam: NORMAL BREATHING PATTERN - Cardiovascular Exam Cardiovascular Exam: REGULAR RHYTHM. absent: Tachycardia - GI/Abdominal Exam GI & Abdominal Exam: Distended, Soft, Organomegaly Additional comments: tympanic abdomen 2/2 ascites - Extremities Exam Extremities Exam: Pedal Edema (1+ bilateral). absent: Calf Tenderness - Neurological Exam Neurological Exam: Alert, Awake, Oriented x3 - Psychiatric Exam Psychiatric exam: Normal Affect, Normal Mood - Skin Skin Exam: Dry, Intact, Warm Additional comments: diffusely jaundiced Assessment and Plan - Assessment and Plan (Free Text) Assessment: Patient is a 58 year old male with a past medical history significant for Stage 3b Colon cancer (locally advanced cecal adenocarcinoma with lymphdovascular invasion, Ellis II. Stage T3 N1), bowel obstruction s/p emergent laparotomy resulting in R hemicolectomy, tobacco use disorder, chronic anemia and history of DVT (2015) who presents to the emergency room for evaluation and treatment of changing skin color and diarrhea. Plan: Hyperbilirubinemia - likely 2/2 stricture 2/2 colon cancer vs chemotherapy - IR consulted for percutaneous transhepatic cholangiography, likely today for drainage/ drain placement - GI consulted- appreciate recommendations - will repeat labs in am Abdominal Pain, Colon Adenocarcinoma, metastatic to liver - Oncologist Dr. Carter consulted, chemo per Onc recs, recs appreciated - Pain control per Oncology recs - surgery consulted for ileus vs SBO- appreciate recommendations - altered Gi/hepatic diet for Diarrhea management Singultus - baclofen 5mg BID - compazine 10 Q8 PRN Hx of HTN - continue home amlodipine with holding parameters in place Tobacco Abuse - dangers of tobacco use provided to patient - smoking cessation advised Patient seen and case discussed with attending, Dr. Ritesh Jimenez, PGY 1 <Naeem Awad - Last Filed: 07/19/18 14:46> Objective - Vital Signs/Intake and Output Vital Signs (last 24 hours): Temp Pulse Resp BP Pulse Ox 98 F 99 H 20 128/79 96 07/19/18 07:59 07/19/18 07:59 07/19/18 07:59 07/19/18 09:56 07/19/18 07:59 - Medications Medications: Current Medications Acetaminophen (Tylenol 325mg Tab) 650 mg PO Q4 PRN PRN Reason: Pain, Mild (1-3) Albumin Human (Albumin Human 25% (12.5 Gm/50 Ml)) 25 gm IV 1000,1200 [facility] Last Admin: 07/19/18 14:24 Dose: 25 gm Amlodipine Besylate (Norvasc) 10 mg PO DAILY [facility] Last Admin: 07/19/18 09:56 Dose: 10 mg Enoxaparin Sodium (Lovenox) 30 mg SC DAILY [facility]; Protocol Last Admin: 07/19/18 09:56 Dose: 30 mg Furosemide (Lasix) 40 mg IVP ONCE ONE Stop: 07/19/18 16:01 Hydromorphone HCl (Dilaudid) 2 mg IVP Q4H PRN PRN Reason: Pain, severe (8-10) Last Admin: 07/19/18 12:07 Dose: 2 mg Iron Sucrose 100 mg/ Sodium (Chloride) 105 mls @ 210 mls/hr IVPB DAILY [facility] Stop: 07/22/18 12:46 Last Admin: 07/19/18 13:32 Dose: 210 mls/hr Sodium Chloride (Sodium Chloride 0.9%) 1,000 mls @ 75 mls/hr IV .[id number] [facility] Multivitamins/Minerals (Therapeutic-M Tab) 1 tab PO DAILY [facility] Last Admin: 07/19/18 09:57 Dose: 1 tab Ondansetron HCl (Zofran Inj) 4 mg IVP Q4H PRN PRN Reason: Nausea/Vomiting Oxycodone HCl (Oxycodone Immediate Release Tab) 10 mg PO Q6H PRN PRN Reason: Pain, moderate (4-7) Last Admin: 07/19/18 14:26 Dose: 10 mg - Labs Labs: 07/19/18 06:10 07/19/18 06:10 PT 16.7 SECONDS (9.4-12.5) H 07/16/18 06:15 INR 1.44 07/16/18 06:15 APTT 27.6 Seconds (25.1-36.5) 07/16/18 06:15 Attending/Attestation - Attestation I have personally seen and examined this patient.: Yes I have fully participated in the care of the patient.: Yes I have reviewed all pertinent clinical information, including history, physical exam and plan: Yes Notes (Text): 07/19/18 14:46 attending note; Patient seen and examined with resident. Patient's Mother and sister by the bedside. Patient is a 58 year old male with a past medical history significant for Stage 3b Colon cancer (locally advanced cecal adenocarcinoma with lymphdovascular invasion, bowel obstruction s/p emergent laparotomy resulting in R hemicolectomy, tobacco use disorder, chronic anemia and history of DVT (2015) Admitted for worsening diarrhea and elevated LFTs. 1. Patient has multiple metastatic lesion in the liver. Possible obstruction of the biliary tree suspected. Case discussed with interventional radiologist in detail. Plan for cholangiogram and stent placement today. Started on clear liquid diet. 2. Ileus; CT abdomen and pelvis reviewed with surgery. No bowel obstruction suspected. Patient is having bowel movement. Continue clear liquid diet and monitored closely. GI evaluation appreciated. 3. Acute abdominal pain; secondary to metastatic colon cancer. Continue IV Dilaudid. follow Up with oncology closely. upon discharge the patient will follow up with Michael Peter.
[2018-07-16] MEDS: HYDROmorphone 2 mg/ml ISec IVP PRN ×2 (16:10→20:15)
--- NOTE | 2018-07-16 17:50 | CP.PCM.CON ---
History of Present Illness - History of Present Illness History of Present Illness: PGY6 GI Fellow Consult Note - LATE ENTRY Patient is a 58yo male with PMHx significant for metastatic colon cancer with previous right hemicolectomy who presented to the hospital with new onset jaundice and diarrhea. The patient's mother is at bedside at this time. Symptoms began shortly after starting chemotherapy. Within a few days of his treatment, he developed loose stool with 3-4 episodes per day. Denies any zoila hematochezia or melena. In the same time frame, he noted worsening yellowing of his skin and eyes which prompted him to come to the ED for further evaluation. GI consultation was placed for evaluation of elevated LFTs. Patient was seen previously in May for abdominal pain and was diagnosed with liver metastases at that time, confirmed with IR biopsy. 12 system ROS negative except where stated PMHx: See HPI PSHx: Right hemicolectomy, GUERA, Subsequent resection of ileocecal anastomosis FHx: Mother - DM, HTN, CAD Social: +Tobacco use with 1/2ppd, +EtOH use, denies illicit drug use Endo: None available per EMR Past Patient History - Infectious Disease Hx of Infectious Diseases: None - Past Medical History & Family History Past Medical History?: No - Past Social History Smoking Status: Former Smoker - CARDIAC Hx Pacemaker: No - PULMONARY Hx Respiratory Disorders: Yes (SMOKES 1/2 PPD) - NEUROLOGICAL Hx Neurological Disorder: No - HEENT Hx HEENT Problems: Yes (wears glasses) - RENAL Hx Chronic Kidney Disease: No - ENDOCRINE/METABOLIC Hx Endocrine Disorders: No - HEMATOLOGICAL/ONCOLOGICAL Hx Blood Disorders: Yes Hx Anemia: Yes - INTEGUMENTARY Hx Dermatological Problems: No - MUSCULOSKELETAL/RHEUMATOLOGICAL Hx Musculoskeletal Disorders: No - GASTROINTESTINAL Hx Gastrointestinal Disorders: Yes (perforated ulcer 6 yrs ago WITH REPAIR.) Other/Comment: SBO,COLON CA WITH LIVER MASS,RIGHT HEMICOLECTOMY - GENITOURINARY/GYNECOLOGICAL Hx Genitourinary Disorders: No - PSYCHIATRIC Hx Anxiety: Yes Hx Emotional Abuse: No Hx Physical Abuse: No Hx Substance Use: No - SURGICAL HISTORY Other/Comment: Perforated intestine 6 yrs ago - ANESTHESIA Hx Anesthesia Reactions: No Hx Malignant Hyperthermia: No Meds Allergies/Adverse Reactions: Allergies Allergy/AdvReac Type Severity Reaction Status Date / Time Penicillins Allergy Unknown ANAPHYLAXIS Verified 06/18/18 13:25 - Medications Medications: Current Medications Acetaminophen (Tylenol 325mg Tab) 650 mg PO Q4 PRN PRN Reason: Pain, Mild (1-3) Amlodipine Besylate (Norvasc) 10 mg PO DAILY [facility] Last Admin: 07/16/18 10:03 Dose: 10 mg Baclofen (Lioresal) 5 mg PO TID [facility] Last Admin: 07/16/18 17:30 Dose: 5 mg Enoxaparin Sodium (Lovenox) 30 mg SC DAILY [facility]; Protocol Hydromorphone HCl (Dilaudid) 2 mg IVP Q4H PRN PRN Reason: Pain, severe (8-10) Last Admin: 07/16/18 16:10 Dose: 2 mg Sodium Chloride (Sodium Chloride 0.9%) 1,000 mls @ 120 mls/hr IV .Q8H20M [facility] Last Admin: 07/16/18 08:57 Dose: 120 mls/hr Multivitamins/Minerals (Therapeutic-M Tab) 1 tab PO DAILY [facility] Last Admin: 07/16/18 10:05 Dose: 1 tab Ondansetron HCl (Zofran Inj) 4 mg IVP Q4H PRN PRN Reason: Nausea/Vomiting Oxycodone HCl (Oxycodone Immediate Release Tab) 10 mg PO Q6H PRN PRN Reason: Pain, severe (8-10) Last Admin: 07/16/18 05:40 Dose: 10 mg Prochlorperazine (Compazine Tab) 10 mg PO Q8 PRN PRN Reason: Hiccups Last Admin: 07/16/18 05:09 Dose: 10 mg Physical Exam - Constitutional Appears: No Acute Distress Additional comments: jaundice - Eye Exam Eye Exam: EOMI, PERRL, Scleral icterus - ENT Exam ENT Exam: Mucous Membranes Moist - Respiratory Exam Respiratory Exam: Clear to Auscultation Bilateral. absent: Rales, Rhonchi, Wheezes - Cardiovascular Exam Cardiovascular Exam: RRR, +S1, +S2 - GI/Abdominal Exam GI & Abdominal Exam: Normal Bowel Sounds, Organomegaly, Soft. absent: Distended, Firm, Guarding, Rigid - Extremities Exam Extremities exam: Positive for: normal inspection, pedal edema - Neurological Exam Neurological exam: Alert, Oriented x3 - Psychiatric Exam Psychiatric exam: Normal Affect, Normal Mood - Skin Skin Exam: Dry, Warm Additional comments: jaundice Results - Vital Signs Recent Vital Signs: Last Vital Signs Temp 97.8 F 07/16/18 14:49 Pulse 76 07/16/18 14:49 Resp 20 07/16/18 14:49 BP 136/82 07/16/18 14:49 Pulse Ox 99 07/16/18 14:49 - Labs Result Diagrams: 07/16/18 06:15 07/16/18 06:15 Labs: Laboratory Results - last 24 hr 07/16/18 07/16/18 07/16/18 06:15 06:15 06:15 WBC 17.6 H RBC 3.54 Hgb 9.8 L Hct 28.5 L MCV 80.5 MCH 27.7 MCHC 34.4 RDW 18.8 H Plt Count 481 H MPV 9.7 Gran % 81.5 H Lymph % (Auto) 10.3 L [place] % (Auto) 6.7 H Eos % (Auto) 1.2 L Baso % (Auto) 0.3 Gran # 14.33 H Lymph # (Auto) 1.8 [place] # (Auto) 1.2 H Eos # (Auto) 0.2 Baso # (Auto) 0.06 PT 16.7 H INR 1.44 APTT 27.6 Fibrinogen 324 Fibrin Degrad Products Sodium 134 Potassium 3.6 Chloride 99 Carbon Dioxide 29 Anion Gap 10 BUN 7 Creatinine 0.5 L Est GFR ( Amer) > 60 Est GFR (Non-Af Amer) > 60 Random Glucose 75 Calcium 8.3 L Phosphorus 4.2 Magnesium 1.9 Total Bilirubin 13.1 H AST 75 H ALT 56 Alkaline Phosphatase 345 H Total Protein 5.7 L Albumin 2.4 L Globulin 3.2 Albumin/Globulin Ratio 0.8 L 07/16/18 09:45 WBC RBC Hgb Hct MCV MCH MCHC RDW Plt Count MPV Gran % Lymph % (Auto) [place] % (Auto) Eos % (Auto) Baso % (Auto) Gran # Lymph # (Auto) [place] # (Auto) Eos # (Auto) Baso # (Auto) PT INR APTT Fibrinogen Fibrin Degrad Products >10 <40 ug/ml Sodium Potassium Chloride Carbon Dioxide Anion Gap BUN Creatinine Est GFR ( Amer) Est GFR (Non-Af Amer) Random Glucose Calcium Phosphorus Magnesium Total Bilirubin AST ALT Alkaline Phosphatase Total Protein Albumin Globulin Albumin/Globulin Ratio Assessment & Plan - Assessment and Plan (Free Text) Assessment: Patient is a 58yo male with PMHx significant for metastatic colon cancer with previous right hemicolectomy who presented to the hospital with new onset jaundice and diarrhea -Abnormal LFTs -Colon cancer with liver metastases s/p chemotherapy Plan: -Elevated LFTs in the setting of metastatic colon cancer, likely representing the effects of tumor burden combined with recent chemotherapy administration -To be evaluated by IR for possible I/O biliary drain with potential for conversion to internal drain -Continue to monitor LFTs -Supportive care -Analgesia and antiemetics per primary service -Case discussed with Dr Villagomez previously and he is aware of consultation - Date & Time Date: 07/16/18 Time: 17:58
--- NOTE | 2018-07-16 19:00 | VASCULAR ---
Date of service: 07/16/2018 PROCEDURE: 1. Right transhepatic internal/external biliary drain. 2. Biliary dilatation right hilum. HISTORY: Metastatic colon CA. Biliary obstruction related to hilar adenopathy and parenchymal disease. Jaundiced. Needs drainage. COMPARISON: TECHNIQUE: The relative risks and indications of the procedure were explained the patient consent obtained. The patient was placed supine on the arteriogram table in the right side prepped and draped usual sterile fashion. Conscious sedation monitoring were provided throughout the procedure by a nurse. Multiple initial attempts at percutaneous cholangiography from a right mid axillary approach were unsuccessful. Sonography of the liver was performed. This identified inferior right ducts. These were successfully punctured with a 21 gauge needle. Contrast was injected and a cholangiogram performed A 0.018 guidewire was advanced centrally. An Accustick system was placed. Exchange is made for a 5 [place]orran catheter and angled Glidewire. Some difficulty, the complete obstruction of the right intrahepatic ducts at the level hilum was crossed with an angled Glidewire. Exchange is made for a support wire in the duodenum. The short segment critical stenosis in the right hilum was dilated with a 7 mm x 4 cm balloon. No stent was placed Finally a 12 [place]orran internal/external biliary drain was placed from the right lower duct puncture site to the duodenum. The catheter was flushed and secured. The patient tolerated the procedure well. FINDINGS: There are markedly dilated right posterior and inferior bile ducts. There is complete obstruction at the level of the hilum, related to malignant disease. The left-sided ducts are not opacified. The common hepatic and common bile duct below the hilar obstruction is normal in caliber IMPRESSION: Hilar obstruction related to malignant disease. Successful placement of a 12 Andorran internal/external biliary drain from a right-sided approach. Bile duct dilatation at the level the right hilum with a 7 mm balloon.
--- NOTE | 2018-07-16 22:50 | CON ---
DATE: 07/16/2018 REQUESTING PHYSICIAN: Dr. Awad. REASON FOR CONSULT: I have been asked to see this 58-year-old male with a history of stage IIIB colon cancer with known liver metastases with new onset of jaundice, first noticed several days ago. The patient received a dose of chemotherapy 1 week ago. He denies any abdominal pain, nausea, vomiting, or rectal bleeding. He does admit to occasional diarrhea, which started after his chemotherapy. CT scan of the abdomen and liver performed on this admission shows extensive florid liver metastases with hepatomegaly. No obvious bile duct dilatation and some dilated fluid-filled small bowel loops. He currently denies any abdominal pain. PAST MEDICAL HISTORY: Notable for right colon cancer diagnosed in 2015, anemia, DVT, tobacco use. PAST SURGICAL HISTORY: Notable for right hemicolectomy and evacuation of postop hematoma. SOCIAL HISTORY: He smokes between half pack and a pack of cigarettes daily, and he has done so for over 20 years. He consumes alcohol socially. FAMILY HISTORY: Notable for a mother with heart disease. There is no family history of colon cancer. REVIEW OF SYSTEMS: A 14-point review of systems is notable for jaundice and intermittent diarrhea. MEDICATIONS AT HOME: Include Compazine, oxycodone, nystatin, multivitamin, Norvasc, and MiraLax. PHYSICAL EXAMINATION: GENERAL: Middle-aged male, sitting in chair, appearing jaundiced. VITAL SIGNS: Reveal temperature of 97.8, blood pressure 118/75, heart rate of 76. HEENT: Reveal sclerae to be icteric. Conjunctivae pink. NECK: Supple. CHEST/LUNGS: Clear. HEART: Exam reveals regular rate and rhythm. ABDOMEN: Demonstrates a large firm mass representing an enlarged liver, palpable five fingerbreadths below the right costal margin. The mass extends to the midline. EXTREMITIES: Show no edema. LABORATORY DATA: Reveal white blood cell count of 17.6; hemoglobin 9.8; platelet count 481,000. Chemistries reveal total bilirubin of 13.1, AST 75, ALT 56, alkaline phosphatase of 345. IMPRESSION: 1. A 58-year-old male with known history of colon cancer and extensive liver metastases with new onset of jaundice. The CAT scan of the liver demonstrates extensive florid liver metastases. Jaundice is most likely secondary to large tumor burden. The patient did receive chemotherapy 1 week ago. 2. Dilated fluid filled bowels on CAT scan. Clinically, the patient does not have small-bowel obstruction as he has been having bowel movements, and there is no history of nausea or vomiting. RECOMMENDATIONS: We will request an MRCP to further clarify biliary anatomy and to see if there is a dominant biliary stricture. David Villagomez MD MTDD
[2018-07-17] MEDS: HYDROmorphone 2 mg/ml ISec IVP PRN ×6 (00:05→21:11)
[2018-07-17 07:09] LABS: BASO # 0.02 K/mm3 (0.0-2.0); BASO % 0.1 % (0.0-3.0); EOS # 0.1 (0.0-0.7); EOS % 0.7 % (1.5-5.0); GRAN # 16.62 (1.4-6.5); HEMOGLOBIN 8.8 g/dL (14.0-18.0); LYMPH # 1.5 (1.2-3.4); LYMPH % 7.9 % (22.0-35.0); MEAN CELL VOLUME 81.7 fl (80.0-105.0); MEAN CORPUSCULAR HEMOGLOBIN 27.3 pg (25.0-35.0); MEAN CORPUSCULAR HGB CONC 33.5 g/dl (31.0-37.0); MEAN PLATELET VOLUME 9.4 fl (7.0-11.0); MONO % 5.3 % (1.0-6.0); RBC 3.22 10^6/uL (3.5-6.1); RED CELL DISTRIBUTION WIDTH 19.6 % (11.5-14.5); WHITE BLOOD COUNT 19.3 10^3/uL (4.5-11.0)
--- NOTE | 2018-07-17 07:47 | CP.PCM.PN ---
<UriahLionel - Last Filed: 07/17/18 11:06> Subjective - Date & Time of Evaluation Date of Evaluation: 07/17/18 Time of Evaluation: 09:00 - Subjective Subjective: Lionel Kruse Internal Medicine Resident- Progress Note on Behalf of Hematology/Oncology Subjective: Patient is seen and examined at bedside. No acute events overnight. Patient states that his hiccups have resolved. Admits to abdominal discomfort at the site of catheter. Patient denies fever, chills, night sweat, headache, dizziness, chest pain, shortness of breath, dyspnea on exertion, cough, nausea, vomiting, diarrhea, hematochezia, rectal bleeding, and urinary symptoms. 12 point ROS negative except as indicated in HPI Physical Examination: - Constitutional Appears: No Acute Distress, chronically ill - Head Exam Head Exam: ATRAUMATIC, NORMAL INSPECTION, NORMOCEPHALIC - Eye Exam Eye Exam: EOMI, PERRL, Scleral icterus Pupil Exam: NORMAL ACCOMODATION - ENT Exam ENT Exam: Mucous Membranes Moist - Neck Exam Neck Exam: supple, no JVD - Respiratory Exam Respiratory Exam: Clear to Auscultation Bilateral, NORMAL BREATHING PATTERN. absent: Decreased Breath Sounds, Rales, Rhonchi, Wheezes - Cardiovascular Exam Cardiovascular Exam: REGULAR RHYTHM, +S1, +S2. absent: Systolic Murmur - GI/Abdominal Exam GI & Abdominal Exam: Soft, Distended, Normal Bowel Sounds, Tenderness to palpation, Organomegaly- Liver felt to extend extensively under costal margin, catheter site is clean, dry, intact , bag contains ~ 200cc bilious fluid; absent: Guarding, Rigid, Rebound Tenderness - Extremities Exam Extremities exam: Positive for: normal capillary refill, normal inspection, pedal pulses present. 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 Stage T3 N1), bowel obstruction s/p emergent laparotomy resulting in R hemicolectomy, tobacco use disorder, chronic anemia and history of DVT (2015) who presents to the emergency room for evaluation and treatment of changing skin color and diarrhea. Hyperbilirubinemia - likely 2/2 stricture 2/2 colon cancer - 07/15/[address] scan- Redemonstration of hepatomegaly with innumerable hepatic metastases. Dilated small bowel loops compatible with ileus/partial small bowel obstruction. Extensive ascites - IR consulted- percutaneous transhepatic cholangiography performed, hilar obstruction related to malignant disease seen, successful placement placement of a 12 Persian internal/external biliary drain, bilious drain output noted Abdominal Pain, Colon Adenocarcinoma - continue chemotherapy in the outpatient setting - continue home on Oxycodone 10mg q6h prn moderate pain, diluadid 2mg IV q4h for severe pain as per IR - surgery consulted- appreciate recommendations Anemia - H/H 8.8, trending down- likely 2/2 procedure - normocytic - venofer 100mg x 1 - monitor closely via CBC Singultus - resolved s/p catheter placement - discontinue baclofen 5mg TID - recommend holding prochlorperazine Please make note this is a complex patient with multiple comorbid medical issues. We will continue to monitor the patient patient aggressively. Case thoroughly discussed with patient's family with patient's permission. Time spend with the patient is greater than 45 minutes. Patient seen and case discussed with attending, Dr. Carter. Objective - Vital Signs/Intake and Output Vital Signs (last 24 hours): Temp Pulse Resp BP Pulse Ox 97.8 F 76 20 136/82 99 07/16/18 14:49 07/16/18 14:49 07/16/18 14:49 07/16/18 14:49 07/16/18 14:49 Intake and Output: 07/17/18 07/17/18 06:59 18:59 Intake Total 1740 Output Total 700 Balance 1040 - Medications Medications: Current Medications Acetaminophen (Tylenol 325mg Tab) 650 mg PO Q4 PRN PRN Reason: Pain, Mild (1-3) Amlodipine Besylate (Norvasc) 10 mg PO DAILY [facility] Last Admin: 07/16/18 10:03 Dose: 10 mg Baclofen (Lioresal) 5 mg PO TID [facility] Last Admin: 07/16/18 17:30 Dose: 5 mg Enoxaparin Sodium (Lovenox) 30 mg SC DAILY [facility]; Protocol Hydromorphone HCl (Dilaudid) 2 mg IVP Q4H PRN PRN Reason: Pain, severe (8-10) Last Admin: 07/17/18 04:26 Dose: 2 mg Sodium Chloride (Sodium Chloride 0.9%) 1,000 mls @ 120 mls/hr IV .Q8H20M [facility] Last Admin: 07/16/18 22:14 Dose: 120 mls/hr Multivitamins/Minerals (Therapeutic-M Tab) 1 tab PO DAILY [facility] Last Admin: 07/16/18 10:05 Dose: 1 tab Ondansetron HCl (Zofran Inj) 4 mg IVP Q4H PRN PRN Reason: Nausea/Vomiting Oxycodone HCl (Oxycodone Immediate Release Tab) 10 mg PO Q6H PRN PRN Reason: Pain, severe (8-10) Last Admin: 07/16/18 05:40 Dose: 10 mg Prochlorperazine (Compazine Tab) 10 mg PO Q8 PRN PRN Reason: Hiccups Last Admin: 07/16/18 05:09 Dose: 10 mg - Labs Labs: 07/17/18 05:55 07/17/18 05:55 PT 16.7 SECONDS (9.4-12.5) H 07/16/18 06:15 INR 1.44 07/16/18 06:15 APTT 27.6 Seconds (25.1-36.5) 07/16/18 06:15 <Nancy Carter P - Last Filed: 07/18/18 20:05> Objective - Vital Signs/Intake and Output Vital Signs (last 24 hours): Temp Pulse Resp BP Pulse Ox 99.2 F 107 H 19 122/81 92 L 07/18/18 16:55 07/18/18 16:55 07/18/18 16:55 07/18/18 16:55 07/18/18 16:55 Intake and Output: 07/18/18 07/19/18 18:59 06:59 Intake Total 4680 Output Total 2150 Balance 2530 - Medications Medications: Current Medications Acetaminophen (Tylenol 325mg Tab) 650 mg PO Q4 PRN PRN Reason: Pain, Mild (1-3) Amlodipine Besylate (Norvasc) 10 mg PO DAILY [facility] Last Admin: 07/18/18 10:37 Dose: 10 mg Enoxaparin Sodium (Lovenox) 30 mg SC DAILY [facility]; Protocol Last Admin: 07/18/18 10:37 Dose: 30 mg Hydromorphone HCl (Dilaudid) 2 mg IVP Q4H PRN PRN Reason: Pain, severe (8-10) Last Admin: 07/18/18 19:35 Dose: 2 mg Sodium Chloride (Sodium Chloride 0.9%) 1,000 mls @ 120 mls/hr IV .Q8H20M [facility] Last Admin: 07/18/18 10:37 Dose: 120 mls/hr Multivitamins/Minerals (Therapeutic-M Tab) 1 tab PO DAILY [facility] Last Admin: 07/18/18 10:37 Dose: 1 tab Ondansetron HCl (Zofran Inj) 4 mg IVP Q4H PRN PRN Reason: Nausea/Vomiting Oxycodone HCl (Oxycodone Immediate Release Tab) 10 mg PO Q6H PRN PRN Reason: Pain, moderate (4-7) Last Admin: 07/18/18 04:07 Dose: 10 mg - Labs Labs: 07/18/18 06:00 07/18/18 06:00 PT 16.7 SECONDS (9.4-12.5) H 07/16/18 06:15 INR 1.44 07/16/18 06:15 APTT 27.6 Seconds (25.1-36.5) 07/16/18 06:15 Attending/Attestation - Attestation I have personally seen and examined this patient.: Yes I have fully participated in the care of the patient.: Yes I have reviewed all pertinent clinical information, including history, physical exam and plan: Yes
[2018-07-17 07:49] LABS: ALB/GLOB RATIO 0.8 (1.1-1.8); ALBUMIN 2.3 g/dL (3.0-4.8); ALT/SGPT 46 U/L (7-56); AST/SGOT 75 U/L (17-59); BLOOD UREA NITROGEN 8 mg/dL (7-21); GFR NON-AFRICAN AMERICAN > 60
[2018-07-17] MEDS ORDERED: Potassium Chloride 40 mEq/30 ml LIQ UD PO ONE (07:51)
[2018-07-17] MEDS: Multivitamin With Minerals Tab PO SCH (09:15)
[2018-07-17] MEDS: Enoxaparin 30 mg Syringe SC SCH (09:16)
[2018-07-17] MEDS: Sodium Chloride 0.9% 1,000 ML IV SCH ×2 (09:17→17:10)
--- NOTE | 2018-07-17 13:34 | CP.PCM.PN ---
<Carol Jimenez - Last Filed: 07/17/18 15:37> Subjective - Date & Time of Evaluation Date of Evaluation: 07/17/18 Time of Evaluation: 09:15 - Subjective Subjective: internal medicine progress ntoe for Dr. awad patient seen and examined this am at bedside. SCOTTIEEO per nursing. Patient had drain placed yesterday by IR and is continuing to have copiuous bilious output. Pt complains of abdominal pain at the site of insertion. Otherwise denies f/c, n/v, ZUÑIGA, CP, SOB and extremity pain/weakness Objective - Vital Signs/Intake and Output Vital Signs (last 24 hours): Temp Pulse Resp BP Pulse Ox 97.8 F 76 20 130/80 99 07/16/18 14:49 07/16/18 14:49 07/16/18 14:49 07/17/18 09:15 07/16/18 14:49 Intake and Output: 07/17/18 07/17/18 06:59 18:59 Intake Total 1740 Output Total 700 Balance 1040 - Medications Medications: Current Medications Acetaminophen (Tylenol 325mg Tab) 650 mg PO Q4 PRN PRN Reason: Pain, Mild (1-3) Amlodipine Besylate (Norvasc) 10 mg PO DAILY [facility] Last Admin: 07/17/18 09:15 Dose: 10 mg Enoxaparin Sodium (Lovenox) 30 mg SC DAILY [facility]; Protocol Last Admin: 07/17/18 09:16 Dose: 30 mg Hydromorphone HCl (Dilaudid) 2 mg IVP Q4H PRN PRN Reason: Pain, severe (8-10) Last Admin: 07/17/18 13:10 Dose: 2 mg Sodium Chloride (Sodium Chloride 0.9%) 1,000 mls @ 120 mls/hr IV .Q8H20M [facility] Last Admin: 07/17/18 09:17 Dose: 120 mls/hr Multivitamins/Minerals (Therapeutic-M Tab) 1 tab PO DAILY [facility] Last Admin: 07/17/18 09:15 Dose: 1 tab Ondansetron HCl (Zofran Inj) 4 mg IVP Q4H PRN PRN Reason: Nausea/Vomiting Oxycodone HCl (Oxycodone Immediate Release Tab) 10 mg PO Q6H PRN PRN Reason: Pain, moderate (4-7) Prochlorperazine (Compazine Tab) 10 mg PO Q8 PRN PRN Reason: Hiccups Last Admin: 07/16/18 05:09 Dose: 10 mg - Labs Labs: 07/17/18 05:55 07/17/18 05:55 PT 16.7 SECONDS (9.4-12.5) H 07/16/18 06:15 INR 1.44 07/16/18 06:15 APTT 27.6 Seconds (25.1-36.5) 07/16/18 06:15 - Constitutional Appears: Non-toxic, No Acute Distress, Cachectic, Chronically Ill - Head Exam Head Exam: ATRAUMATIC, NORMOCEPHALIC - Eye Exam Eye Exam: EOMI, Scleral icterus - ENT Exam ENT Exam: Mucous Membranes Moist - Respiratory Exam Respiratory Exam: NORMAL BREATHING PATTERN - Cardiovascular Exam Cardiovascular Exam: REGULAR RHYTHM - GI/Abdominal Exam GI & Abdominal Exam: Distended (ascites), Soft, Tenderness (at site of drain placement), Organomegaly (hepatomegaly). absent: Guarding - Extremities Exam Extremities Exam: absent: Calf Tenderness, Pedal Edema - Neurological Exam Neurological Exam: Alert, Awake, Oriented x3 - Psychiatric Exam Psychiatric exam: Normal Affect, Normal Mood - Skin Skin Exam: Dry, Intact, Warm Additional comments: diffusely jaundiced, improving Assessment and Plan - Assessment and Plan (Free Text) Assessment: Patient is a 58 year old male with a past medical history significant for Stage 3b Colon cancer (locally advanced cecal adenocarcinoma with lymphdovascular invasion, [place] II. Stage T3 N1), bowel obstruction s/p emergent laparotomy resulting in R hemicolectomy, tobacco use disorder, chronic anemia and history of DVT (2014) who presents to the emergency room for evaluation and treatment of changing skin color and diarrhea. Plan: Hyperbilirubinemia - improving - likely 2/2 blockage 2/2 colon cancer vs chemotherapy - IR drain placed 07/16, has drained 675cc over last 24 hours bilious - will continue to monitor output - GI consulted- appreciate recommendations - will repeat labs in am Abdominal Pain, Colon Adenocarcinoma, metastatic to liver - Oncologist Dr. Carter consulted, chemo per Onc recs, recs appreciated - Pain control per Oncology recs - surgery consulted for ileus vs SBO, indicated ileus not SBO, patient not obstructed - altered Gi/hepatic diet for Diarrhea management Singultus - baclofen 5mg BID - compazine 10 Q8 PRN Hx of HTN - continue home amlodipine with holding parameters in place Tobacco Abuse - dangers of tobacco use provided to patient - smoking cessation advised Patient seen and case discussed with attending, Dr. Ritesh Jimenez, PGY 1 <Naeem Awad - Last Filed: 07/19/18 14:50> Objective - Vital Signs/Intake and Output Vital Signs (last 24 hours): Temp Pulse Resp BP Pulse Ox 98 F 99 H 20 128/79 96 07/19/18 07:59 07/19/18 07:59 07/19/18 07:59 07/19/18 09:56 07/19/18 07:59 - Medications Medications: Current Medications Acetaminophen (Tylenol 325mg Tab) 650 mg PO Q4 PRN PRN Reason: Pain, Mild (1-3) Albumin Human (Albumin Human 25% (12.5 Gm/50 Ml)) 25 gm IV 1000,1200 [facility] Last Admin: 07/19/18 14:24 Dose: 25 gm Amlodipine Besylate (Norvasc) 10 mg PO DAILY [facility] Last Admin: 07/19/18 09:56 Dose: 10 mg Enoxaparin Sodium (Lovenox) 30 mg SC DAILY [facility]; Protocol Last Admin: 07/19/18 09:56 Dose: 30 mg Furosemide (Lasix) 40 mg IVP ONCE ONE Stop: 07/19/18 16:01 Hydromorphone HCl (Dilaudid) 2 mg IVP Q4H PRN PRN Reason: Pain, severe (8-10) Last Admin: 07/19/18 12:07 Dose: 2 mg Iron Sucrose 100 mg/ Sodium (Chloride) 105 mls @ 210 mls/hr IVPB DAILY [facility] Stop: 07/22/18 12:46 Last Admin: 07/19/18 13:32 Dose: 210 mls/hr Sodium Chloride (Sodium Chloride 0.9%) 1,000 mls @ 75 mls/hr IV .[id number] [facility] Multivitamins/Minerals (Therapeutic-M Tab) 1 tab PO DAILY [facility] Last Admin: 07/19/18 09:57 Dose: 1 tab Ondansetron HCl (Zofran Inj) 4 mg IVP Q4H PRN PRN Reason: Nausea/Vomiting Oxycodone HCl (Oxycodone Immediate Release Tab) 10 mg PO Q6H PRN PRN Reason: Pain, moderate (4-7) Last Admin: 07/19/18 14:26 Dose: 10 mg - Labs Labs: 07/19/18 06:10 07/19/18 06:10 PT 16.7 SECONDS (9.4-12.5) H 07/16/18 06:15 INR 1.44 07/16/18 06:15 APTT 27.6 Seconds (25.1-36.5) 07/16/18 06:15 Attending/Attestation - Attestation I have personally seen and examined this patient.: Yes I have fully participated in the care of the patient.: Yes I have reviewed all pertinent clinical information, including history, physical exam and plan: Yes Notes (Text): 07/19/18 14:47 attending note; Patient seen and examined with resident. Patient's Mother and sister by the bedside. status post biliary drain placement yesterday. Draining without any difficulty. Patient is a 58 year old male with a past medical history significant for Stage 3b Colon cancer (locally advanced cecal adenocarcinoma with lymphdovascular invasion, bowel obstruction s/p emergent laparotomy resulting in R hemicolectomy, tobacco use disorder, chronic anemia and history of DVT (2014) Admitted for worsening diarrhea and elevated LFTs. 1. Patient has multiple metastatic lesion in the liver. s/p cholangiogram and biliary stent placement yesterday. Draining without difficulty. bilirubin is improving slowly. 2. Ileus; CT abdomen and pelvis reviewed with surgery. No bowel obstruction suspected. Patient is having bowel movement.advance diet as tolerated. GI evaluation appreciated. 3. Acute abdominal pain; secondary to metastatic colon cancer. Continue IV Dilaudid. 4.anemia; monitor closely. DVT prophylaxis with Lovenox. follow Up with oncology closely. upon discharge the patient will follow up with Michael Peter. 07/19/18 14:48 07/19/18 14:50
[2018-07-18] MEDS: HYDROmorphone 2 mg/ml ISec IVP PRN ×6 (01:05→19:35)
[2018-07-18] MEDS: oxyCODONE 10 mg Immediate Release Tab PO PRN (04:07)
[2018-07-18 06:51] LABS: BASO # 0.03 K/mm3 (0.0-2.0); BASO % 0.1 % (0.0-3.0); EOS # 0.2 (0.0-0.7); EOS % 0.9 % (1.5-5.0); GRAN # 18.68 (1.4-6.5); GRAN % 90.4 % (50.0-68.0); HEMOGLOBIN 8.6 g/dL (14.0-18.0); LYMPH # 1.1 (1.2-3.4); LYMPH % 5.2 % (22.0-35.0); MEAN CORPUSCULAR HEMOGLOBIN 28.1 pg (25.0-35.0); MEAN CORPUSCULAR HGB CONC 33.9 g/dl (31.0-37.0); MEAN PLATELET VOLUME 9.4 fl (7.0-11.0); MONO # 0.7 (0.1-0.6); MONO % 3.4 % (1.0-6.0); PLATELET COUNT 548 10^3/uL (120.0-450.0); RBC 3.06 10^6/uL (3.5-6.1); RED CELL DISTRIBUTION WIDTH 20.6 % (11.5-14.5); WHITE BLOOD COUNT 20.7 10^3/uL (4.5-11.0)
[2018-07-18 07:37] LABS: ALB/GLOB RATIO 0.8 (1.1-1.8); BILIRUBIN,DIRECT 7.5 mg/dL (0.0-0.4); BLOOD UREA NITROGEN 10 mg/dL (7-21)
[2018-07-18 08:12] LABS: EOSINOPHIL 1 % (0.0-3.0); LYMPHOCYTE 9 % (22.0-35.0); MONOCYTE 2 % (1.0-6.0); NEUTROPHIL 88 % (50.0-70.0)
[2018-07-18 08:13] LABS: ANISOCYTOSIS SLIGHT; HYPOCHROMIA SLIGHT; PLATELET ESTIMATE HIGH (NORMAL)
[2018-07-18 09:04] LABS: ALBUMIN 2.4 g/dL (3.0-4.8); CALCIUM 8.1 mg/dL (8.4-10.5); GFR NON-AFRICAN AMERICAN > 60
[2018-07-18 09:05] LABS: ALT/SGPT 43 U/L (7-56); AST/SGOT 86 U/L (17-59)
[2018-07-18] MEDS ORDERED: Potassium Chloride 40 mEq/30 ml LIQ UD PO ONE (09:56)
[2018-07-18] MEDS: Multivitamin With Minerals Tab PO SCH (10:37)
[2018-07-18] MEDS: Enoxaparin 30 mg Syringe SC SCH (10:37)
[2018-07-18] MEDS: Sodium Chloride 0.9% 1,000 ML IV SCH (10:37)
[2018-07-18] MEDS ORDERED: Potassium Chloride 20 mEq ER Tab PO ONE (10:42)
--- NOTE | 2018-07-18 10:50 | CP.PCM.PN ---
<UriahLionel - Last Filed: 07/18/18 10:53> Subjective - Date & Time of Evaluation Date of Evaluation: 07/18/18 Time of Evaluation: 09:30 - Subjective Subjective: Lionel Kruse Internal Medicine Resident- Progress Note on Behalf of Hospitalist Team Subjective: Patient is seen and examined at bedside. No acute events overnight. Patient states that his hiccups have resolved and have not returned. Admits to abdominal discomfort at the site of catheter. Offers no new complaints at this time. Patient denies fever, chills, night sweat, headache, dizziness, chest pain, shortness of breath, dyspnea on exertion, cough, nausea, vomiting, diarrhea, hematochezia, rectal bleeding, and urinary symptoms. 12 point ROS negative except as indicated in HPI Physical Examination: - Constitutional Appears: No Acute Distress, chronically ill - Head Exam Head Exam: ATRAUMATIC, NORMAL INSPECTION, NORMOCEPHALIC - Eye Exam Eye Exam: EOMI, PERRL Pupil Exam: NORMAL ACCOMODATION - ENT Exam ENT Exam: Mucous Membranes Moist - Neck Exam Neck Exam: supple, no JVD - Respiratory Exam Respiratory Exam: Clear to Auscultation Bilateral, NORMAL BREATHING PATTERN. absent: Decreased Breath Sounds, Rales, Rhonchi, Wheezes - Cardiovascular Exam Cardiovascular Exam: REGULAR RHYTHM, +S1, +S2. absent: Systolic Murmur - GI/Abdominal Exam GI & Abdominal Exam: Soft, Distended, Normal Bowel Sounds, Tenderness to palpation, Organomegaly- Liver felt to extend extensively under costal margin, catheter site is clean, dry, intact , bag contains ~ 50cc chelita colored fluid; absent: Guarding, Rigid, Rebound Tenderness - Extremities Exam Extremities exam: Positive for: normal capillary refill, normal inspection, pedal pulses present. Negative for: calf tenderness, pedal edema, tenderness - Back Exam Back exam: absent: CVA tenderness (L), CVA tenderness (R) - Neurological Exam Neurological exam: Alert, CN II-XII Intact, Oriented x3 - Psychiatric Exam Psychiatric exam: Normal Mood, Normal Affect - Skin Skin Exam: Jaundice significantly improved, port site clean and dry Assessment and Plan: Patient is a 58 year old male with a past medical history significant for Stage 3b Colon cancer (locally advanced cecal adenocarcinoma with lymphdovascular invasion, Ness II. Stage T3 N1), bowel obstruction s/p emergent laparotomy resulting in R hemicolectomy, tobacco use disorder, chronic anemia and history of DVT (2015) who presents to the emergency room for evaluation and treatment of changing skin color and diarrhea. Hyperbilirubinemia - likely 2/2 stricture 2/2 colon cancer - 07/15/[address] scan- Redemonstration of hepatomegaly with innumerable hepatic metastases. Dilated small bowel loops compatible with il eus/partial small bowel obstruction. Extensive ascites - IR consulted- percutaneous transhepatic cholangiography performed, hilar obstruction related to malignant disease seen, successful placement placement of a 12 [place] internal/external biliary drain, bilious drain output noted - trending down ~8.6 Abdominal Pain, Colon Adenocarcinoma - continue chemotherapy in the outpatient setting - continue home on Oxycodone 10mg q6h prn moderate pain, diluadid 2mg IV q4h for severe pain as per IR - surgery consulted- appreciate recommendations - heme/onc consulted- appreciate recommendations Anemia - H/H 8.8, trending down- likely 2/2 procedure - normocytic - s/p venofer 100mg x 1 - monitor closely via CBC Singultus - resolved s/p catheter placement - discontinue baclofen 5mg TID - discontinue prochlorperazine Hx of HTN - continue home amlodipine with holding parameters Tobacco Abuse - dangers of tobacco use provided to patient - smoking cessation advised Patient seen, case discussed with, and plan approved by attending physician, Dr. Janeen Kruse. Objective - Vital Signs/Intake and Output Vital Signs (last 24 hours): Temp Pulse Resp BP Pulse Ox 98.3 F 100 H 18 130/87 95 07/18/18 09:00 07/18/18 09:00 07/18/18 09:00 07/18/18 10:37 07/18/18 09:00 Intake and Output: 07/18/18 07/18/18 06:59 18:59 Intake Total 1440 Output Total 1060 Balance 380 - Medications Medications: Current Medications Acetaminophen (Tylenol 325mg Tab) 650 mg PO Q4 PRN PRN Reason: Pain, Mild (1-3) Amlodipine Besylate (Norvasc) 10 mg PO DAILY JOSE[facility]A Last Admin: 07/18/18 10:37 Dose: 10 mg Enoxaparin Sodium (Lovenox) 30 mg SC DAILY [facility]; Protocol Last Admin: 07/18/18 10:37 Dose: 30 mg Hydromorphone HCl (Dilaudid) 2 mg IVP Q4H PRN PRN Reason: Pain, severe (8-10) Last Admin: 07/18/18 08:37 Dose: 2 mg Sodium Chloride (Sodium Chloride 0.9%) 1,000 mls @ 120 mls/hr IV .[id number] [facility] Last Admin: 07/18/18 10:37 Dose: 120 mls/hr Multivitamins/Minerals (Therapeutic-M Tab) 1 tab PO DAILY [facility] Last Admin: 07/18/18 10:37 Dose: 1 tab Ondansetron HCl (Zofran Inj) 4 mg IVP Q4H PRN PRN Reason: Nausea/Vomiting Oxycodone HCl (Oxycodone Immediate Release Tab) 10 mg PO Q6H PRN PRN Reason: Pain, moderate (4-7) Last Admin: 07/18/18 04:07 Dose: 10 mg Prochlorperazine (Compazine Tab) 10 mg PO Q8 PRN PRN Reason: Hiccups Last Admin: 07/16/18 05:09 Dose: 10 mg - Labs Labs: 07/18/18 06:00 07/18/18 06:00 PT 16.7 SECONDS (9.4-12.5) H 07/16/18 06:15 INR 1.44 07/16/18 06:15 APTT 27.6 Seconds (25.1-36.5) 07/16/18 06:15 <Janeen Kruse R - Last Filed: 07/19/18 15:16> Objective - Vital Signs/Intake and Output Vital Signs (last 24 hours): Temp Pulse Resp BP Pulse Ox 98 F 99 H 20 128/79 96 07/19/18 07:59 07/19/18 07:59 07/19/18 07:59 07/19/18 09:56 07/19/18 07:59 - Medications Medications: Current Medications Albumin Human (Albumin Human 25% (12.5 Gm/50 Ml)) 25 gm IV 1000,1200 [facility] Last Admin: 07/19/18 14:24 Dose: 25 gm Amlodipine Besylate (Norvasc) 10 mg PO DAILY [facility] Last Admin: 07/19/18 09:56 Dose: 10 mg Enoxaparin Sodium (Lovenox) 30 mg SC DAILY [facility]; Protocol Last Admin: 07/19/18 09:56 Dose: 30 mg Furosemide (Lasix) 40 mg IVP ONCE ONE Stop: 07/19/18 16:01 Hydromorphone HCl (Dilaudid) 2 mg IVP Q4H PRN PRN Reason: Pain, severe (8-10) Last Admin: 07/19/18 12:07 Dose: 2 mg Iron Sucrose 100 mg/ Sodium (Chloride) 105 mls @ 210 mls/hr IVPB DAILY [facility] Stop: 07/22/18 12:46 Last Admin: 07/19/18 13:32 Dose: 210 mls/hr Sodium Chloride (Sodium Chloride 0.9%) 1,000 mls @ 75 mls/hr IV .[id number] [facility] Multivitamins/Minerals (Therapeutic-M Tab) 1 tab PO DAILY [facility] Last Admin: 07/19/18 09:57 Dose: 1 tab Ondansetron HCl (Zofran Inj) 4 mg IVP Q4H PRN PRN Reason: Nausea/Vomiting Oxycodone HCl (Oxycodone Immediate Release Tab) 10 mg PO Q6H PRN PRN Reason: Pain, moderate (4-7) Last Admin: 07/19/18 14:26 Dose: 10 mg - Labs Labs: 07/19/18 06:10 07/19/18 06:10 PT 16.7 SECONDS (9.4-12.5) H 07/16/18 06:15 INR 1.44 07/16/18 06:15 APTT 27.6 Seconds (25.1-36.5) 07/16/18 06:15 Attending/Attestation - Attestation I have personally seen and examined this patient.: Yes I have fully participated in the care of the patient.: Yes I have reviewed all pertinent clinical information, including history, physical exam and plan: Yes Notes (Text): Patient seen and examined by me with resident at 9:55 AM on 07/18/18. Case including HPI, physical exam, and assessment and plan discussed with resident. Agree with above with following additions/corrections. Patient is a 58 year old male with past medical history significant for Stage 3B colon cancer, bowel obstruction s/p laparotomy and right hemicolectomy, tobacco abuse, chronic anemia, and DVT that presented to the emergency room for change in skin color and diarrhea. Patient states he is feeling ok. States the color of his skin has improved. Patient complains of abdominal pain. States pain is 8/10 and improves to a 2- 3/10 with pain medications. No radiation of the pain. No nausea or vomiting. No chest pain or palpitations. No fevers or chills. No dysuria. No headaches or dizziness. No diarrhea today. Physical exam: General: Awake and alert sitting up in bed in no acute distress HEENT: Normocephalic, atraumatic. Extraocular muscles intact, pupils equal and reactive, positive scleral icterus. Oropharynx is pink moist. Neck is supple. Cardiovascular: Regular rhythm. Normal S1 and S2. No murmurs, rubs, or gallops appreciated Pulmonary: Normal respiratory effort. No rhonchi, rales, or wheezing appreciated Gastrointestinal: Soft. Distended. Positive tenderness more near drain site. Drain in place with bilious output. Positive bowel sounds all 4 quadrants. No guarding. Musculoskeletal: Moves all extremities. No calf tenderness. Positive bilateral lower extremity pitting edema. Central nervous system: AAOx3. CN 2-12 grossly intact. Dermatologic: Skin warm and dry. Assessment and plan: Patient is a 58 year old male with past medical history significant for Stage 3B colon cancer, bowel obstruction s/p laparotomy and right hemicolectomy, tobacco abuse, chronic anemia, and DVT that presented to the emergency room for change in skin color and diarrhea. 1. Hyperbilirubinemia. Jaundice. Improving. Patient s/p percutaneous transhepatic cholangiography with placement of biliary drain. Continue to monitor output. Bilirubin downtrending. Liver CT per radiologist showed redemonstration of hepatomegaly with innumerable hepatic metastases, dilated small bowel loops compatible with ileus/partial small bowel obstruction, extensive ascites. IR following, recommendations appreciated. GI following, recommendations appreciated. Hem/onc following, recommendations appreciated. 2. Abdominal pain. Stage 3B colon cancer. Continue with pain management. Patient to continue outpatient Chemotherapy. Hem/onc following, recommendations appreciated. Surgery following, recommendations appreciated. 3. Abdominal distention. Ascites. Consult IR for paracentesis. 4. Anemia. Likely secondary to malignancy. Slowly downtrending. S/P IV iron. Hem/onc following, recommendations appreciated. Continue to monitor. 5. Leukocytosis. Likely secondary to malignancy. Afebrile. Continue to monitor. 6. Hypokalemia. Replace with oral potassium. Follow up repeat labs in AM 7. Hiccups. Resolved. Continue to monitor. 8. Essential hypertension. Continue Norvasc. 9. Tobacco abuse. Patient counseled on tobacco cessation 10. DVT prophylaxis. Lovenox 11. Patient is a full code. Case was discussed in detail with patient and patient's family at bedside with patient's permission regarding current diagnosis and treatment plan. All q uestions answered.
[2018-07-19] MEDS: HYDROmorphone 2 mg/ml ISec IVP PRN ×6 (00:27→20:26)
[2018-07-19 07:10] LABS: BASO # 0.04 K/mm3 (0.0-2.0); BASO % 0.2 % (0.0-3.0); EOS # 0.1 (0.0-0.7); EOS % 0.7 % (1.5-5.0); GRAN # 14.92 (1.4-6.5); GRAN % 89.2 % (50.0-68.0); HEMOGLOBIN 8.3 g/dL (14.0-18.0); LYMPH # 0.7 (1.2-3.4); LYMPH % 4.1 % (22.0-35.0); MEAN CORPUSCULAR HEMOGLOBIN 28.2 pg (25.0-35.0); MEAN CORPUSCULAR HGB CONC 33.6 g/dl (31.0-37.0); MEAN PLATELET VOLUME 9.3 fl (7.0-11.0); MONO % 5.8 % (1.0-6.0); RBC 2.94 10^6/uL (3.5-6.1); RED CELL DISTRIBUTION WIDTH 21.2 % (11.5-14.5); WHITE BLOOD COUNT 16.7 10^3/uL (4.5-11.0)
[2018-07-19 07:18] LABS: ALB/GLOB RATIO 0.7 (1.1-1.8); ALBUMIN 2.2 g/dL (3.0-4.8); ALT/SGPT 48 U/L (7-56); AST/SGOT 73 U/L (17-59); BLOOD UREA NITROGEN 10 mg/dL (7-21); CALCIUM 7.9 mg/dL (8.4-10.5); GFR NON-AFRICAN AMERICAN > 60
[2018-07-19] MEDS: Enoxaparin 30 mg Syringe SC SCH (09:56)
[2018-07-19] MEDS: Multivitamin With Minerals Tab PO SCH (09:57)
--- NOTE | 2018-07-19 10:49 | PN ---
DATE: 07/19/2018 SUBJECTIVE The patient is lying in bed. He feels better. He appears less jaundiced. He does have minimal discomfort at the percutaneous biliary drainage site. He is tolerating solid foods. He denies any nausea or vomiting. OBJECTIVE: VITAL SIGNS: Reveal temperature of 98, blood pressure 128/79, heart rate of 100. HEENT: Reveals sclerae to be icteric. Conjunctivae pink. NECK: Supple. CHEST: Reveal lungs to be clear. HEART: Reveals a regular rate and rhythm. He has a percutaneous drain in the right upper quadrant draining bile. LABORATORY DATA: Reveal sodium of 129, total bilirubin 10.2, AST 73, ALT 48. CBC reveals hemoglobin of 8.3, white blood cell count 16.7, platelet count of 506,000. IMPRESSION: A 58-year-old male with liver metastasis from colon cancer. The patient had hyperbilirubinemia with total bilirubin in the 14 g range. He underwent a percutaneous drainage of the left intrahepatic biliary system. His total bilirubin is trending downward. He does have a large tumor burden in his liver. RECOMMENDATIONS: Continue supportive care. His prognosis is extremely poor. David Villagomez MD
[2018-07-19] MEDS: Albumin Human 25% (12.5 gm/50 ml) IV SCH (14:24)
[2018-07-19] MEDS: oxyCODONE 10 mg Immediate Release Tab PO PRN ×2 (14:26→20:11)
[2018-07-19] MEDS ORDERED: Sodium Chloride 0.9% 1,000 ML IV SCH (14:44)
--- NOTE | 2018-07-19 14:56 | CP.PCM.PN ---
Subjective - Date & Time of Evaluation Date of Evaluation: 07/19/18 Time of Evaluation: 10:05 - Subjective Subjective: Medicine Progress Note for Hospitalist Service, Dr. Ritesh Bahena, DO PGY-1 Pt seen and examined at bedside this am. Denies any acute complaints, states his abdominal pain is improving. Tolerating a little of PO diet, denies n/v. No acute events reported overnight by staff. Further 12-point ROS obtained otherwi se neg or as per HPI. Objective - Vital Signs/Intake and Output Vital Signs (last 24 hours): Temp Pulse Resp BP Pulse Ox 98 F 99 H 20 128/79 96 07/19/18 07:59 07/19/18 07:59 07/19/18 07:59 07/19/18 09:56 07/19/18 07:59 - Medications Medications: Current Medications Albumin Human (Albumin Human 25% (12.5 Gm/50 Ml)) 25 gm IV 1000,1200 [facility] Last Admin: 07/19/18 14:24 Dose: 25 gm Amlodipine Besylate (Norvasc) 10 mg PO DAILY [facility] Last Admin: 07/19/18 09:56 Dose: 10 mg Enoxaparin Sodium (Lovenox) 30 mg SC DAILY [facility]; Protocol Last Admin: 07/19/18 09:56 Dose: 30 mg Furosemide (Lasix) 40 mg IVP ONCE ONE Stop: 07/19/18 16:01 Hydromorphone HCl (Dilaudid) 2 mg IVP Q4H PRN PRN Reason: Pain, severe (8-10) Last Admin: 07/19/18 12:07 Dose: 2 mg Iron Sucrose 100 mg/ Sodium (Chloride) 105 mls @ 210 mls/hr IVPB DAILY [facility] Stop: 07/22/18 12:46 Last Admin: 07/19/18 13:32 Dose: 210 mls/hr Sodium Chloride (Sodium Chloride 0.9%) 1,000 mls @ 75 mls/hr IV .[id number] [facility] Multivitamins/Minerals (Therapeutic-M Tab) 1 tab PO DAILY [facility] Last Admin: 07/19/18 09:57 Dose: 1 tab Ondansetron HCl (Zofran Inj) 4 mg IVP Q4H PRN PRN Reason: Nausea/Vomiting Oxycodone HCl (Oxycodone Immediate Release Tab) 10 mg PO Q6H PRN PRN Reason: Pain, moderate (4-7) Last Admin: 07/19/18 14:26 Dose: 10 mg - Labs Labs: 07/19/18 06:10 07/19/18 06:10 PT 16.7 SECONDS (9.4-12.5) H 07/16/18 06:15 INR 1.44 07/16/18 06:15 APTT 27.6 Seconds (25.1-36.5) 07/16/18 06:15 - Constitutional Appears: Non-toxic, No Acute Distress, Chronically Ill - Head Exam Head Exam: ATRAUMATIC, NORMOCEPHALIC - Eye Exam Eye Exam: EOMI, Normal appearance, PERRL - ENT Exam ENT Exam: Mucous Membranes Moist - Respiratory Exam Respiratory Exam: Clear to Ausculation Bilateral, NORMAL BREATHING PATTERN. absent: Rales, Rhonchi, Wheezes - Cardiovascular Exam Cardiovascular Exam: REGULAR RHYTHM, +S1, +S2. absent: Gallop, Rubs, Murmur - GI/Abdominal Exam GI & Abdominal Exam: Soft, Normal Bowel Sounds. absent: Distended, Guarding, Tenderness, Organomegaly - Extremities Exam Extremities Exam: Full ROM, Normal Capillary Refill, Pedal Edema. absent: Tenderness - Neurological Exam Neurological Exam: Alert, Awake, CN II-XII Intact, Normal Gait, Oriented x3 - Skin Skin Exam: Dry, Intact, Normal Color, Warm Assessment and Plan - Assessment and Plan (Free Text) Assessment: 58 year old male with a past medical history significant for Stage 3b Colon cancer (locally advanced cecal adenocarcinoma with lymphdovascular invasion, Harmon II. Stage T3 N1), bowel obstruction s/p emergent laparotomy resulting in R hemicolectomy, tobacco use disorder, chronic anemia and history of DVT (2014) who presented to the emergency room for evaluation and treatment of changing skin color and diarrhea. Currently admitted for management of abd pain. Plan: Hyperbilirubinemia - Likely 2/2 stricture 2/2 colon cancer - 07/15/[address] scan- Redemonstration of hepatomegaly with innumerable hepatic metastases. Dilated small bowel loops compatible with ileus/partial small bowel obstruction. Extensive ascites - IR consulted- percutaneous transhepatic cholangiography performed, hilar obstruction related to malignant disease seen, successful placement of a 12 Ma[place] internal/external biliary drain, bilious drain output noted - Trending up to 10.2 today from 8.7 yesterday, will continue to monitor Abdominal Pain, Colon Adenocarcinoma - Continue chemotherapy in the outpatient setting - Continue Oxycodone 10mg q6h prn moderate pain, diluadid 2mg IV q4h for severe pain as per IR - Surgery consulted- appreciate recommendations - Heme/onc consulted- appreciate recommendations Anemia - H/H 8.3, trending down- likely 2/2 procedure - Normocytic - S/p venofer 100mg x 1 - Monitor closely via CBC Singultus - Resolved s/p catheter placement - D/c baclofen 5mg TID - D/c prochlorperazine Hx of HTN - Continue home amlodipine with holding parameters Tobacco Abuse - Dangers of tobacco use provided to patient - Smoking cessation advised Patient seen, examined with, and plan discussed with Dr. Awad, attending physician. Filiberto Bahena DO PGY-1, Screen Tender Helper Pager #[phone]
--- NOTE | 2018-07-19 19:56 | PN ---
DATE: 07/19/2018 LOCATION: The patient is in room 372, bed 1. SUBJECTIVE: The patient is seen at the bedside, he is sitting out of bed in the chair. No acute events overnight. The patient tells me that his hiccups have improved, his belly is little more distended, and legs are little bit more swell. He tells me that the house doctor had ordered some IV Lasix for him to help him get leg swelling. The patient denies any fever or chills, night sweats, headache, dizziness, chest pain, shortness of breath, dyspnea on exertion, cough, nausea, vomiting, diarrhea, hematochezia, rectal bleeding or urinary symptoms. PHYSICAL EXAMINATION: VITAL SIGNS: For today were noted; T-max is 98.4, pulse is 99, blood pressure 128/79, respirations 20 per minute and O2 sat is 96% on room air. HEENT: Head is normocephalic and atraumatic. Conjunctivae pale. Sclerae icteric. Examination of the oropharynx reveals tongue to be moist. No ulcerations are noted. The patient has poor dentition. NECK: Supple. There is no adenopathy. CHEST: The patient has a port on the right chest wall. SKIN: Icteric. LUNGS: Relatively clear to percussion and auscultation. Decreased breath sounds on the right side posteriorly. CARDIOVASCULAR: Reveals PMI in the fifth intercostal space inside the midclavicular line. S1 and S2 normal. No gallop or murmur is heard. ABDOMEN: Distended. Liver is palpable and measured at least 15 cm below the right costal margin. Edges of the liver are firm. The patient has tense ascites. EXTREMITIES: Lower extremity edema is noted, which is treated 4+ in both lower extremities. GENITOURINARY AND RECTAL: Deferred. NEUROLOGIC: Higher functions are normal. No focal deficits are noted on neurologic examination. LABORATORY DATA: Labs from today were reviewed, the patient's white count 16.7, hemoglobin 8.3, hematocrit 24.7 and platelet count 506,000. Chemistry reveals sodium of 129, K of 3.6 and chloride of 97. Total bili is 10.2, AST 73, ALT 48, alk phos is 210, and total protein 5.3 with an albumin of 2.2. MEDICATIONS: The patient's medications were reviewed and the patient is on Dilaudid 2 mg IV every 4 hours p.r.n. for pain score of greater than 6. The patient is on IV iron daily for the next 3 days. He is on Lovenox 30 mg subcutaneously daily for thromboprophylaxis, Norvasc 10 mg p.o. daily, oxycodone immediate release 10 mg every 6 hours p.r.n., and he is on IV fluid at 75 mL an hour, which has been discontinued. He is on multivitamins 1 tab daily. He is on Zofran 4 mg IV every 4 hours p.r.n. ASSESSMENT, NOTES, AND PLAN: The patient is status post percutaneous drainage with an external catheter going all the way into the duodenum entered into the right lobe of the liver and cannulation of the right hepatic ducts with documented obstruction of the erasmo hepatis from progressive tumor, status post one cycle of systemic chemotherapy. The patient is on output of at least 300 mL of the bilious fluid every shift and catheter has been flushed twice a day. Family has also been instructed to flush the catheter twice a day. The patient has had no fevers or chills since insertion of the percutaneous transhepatic cholangio catheter. Continue the rate on total bilirubin to go down. The patient is anemic and this is of concern, he is on IV iron and we will give him Aranesp tomorrow after giving him loading doses of iron hopefully this will bring the count up; otherwise, the patient may need transfusion. In the meantime, we will continue to give the patient IV albumin followed by Lasix to decrease the edema, stop the IV fluids as well, increase his oral intake, have dietary consult to see if he will be a candidate for any dietary supplementation on the safe basis. The patient's appetite is decent. Plan is to start the patient at least on systemic chemotherapy with single agent oxaliplatin, once the total bilirubin goes less than 4.6, we can giving him 5-FU based chemotherapy. Time spent with the patient is greater than 45 minutes. I discussed in detail my findings with the patient and his sister who was there along with his mother who was visiting him, was cautiously optimistic and hopefully we will be able to start the second cycle of chemotherapy sometime next week. Routine post exam instructions have been given to the patient. Please make a note this is a complex patient with multiple comorbid medical issues. Time spent with the patient is greater than 45 minutes. Nancy Carter MD
[2018-07-20] MEDS: HYDROmorphone 2 mg/ml ISec IVP PRN ×5 (00:35→23:47)
[2018-07-20] MEDS: oxyCODONE 10 mg Immediate Release Tab PO PRN (02:02)
[2018-07-20 07:07] LABS: BASO # 0.03 K/mm3 (0.0-2.0); BASO % 0.2 % (0.0-3.0); EOS # 0.1 (0.0-0.7); EOS % 0.5 % (1.5-5.0); GRAN # 11.71 (1.4-6.5); GRAN % 85.9 % (50.0-68.0); HEMOGLOBIN 8.2 g/dL (14.0-18.0); LYMPH # 0.7 (1.2-3.4); LYMPH % 4.8 % (22.0-35.0); MEAN CELL VOLUME 84.5 fl (80.0-105.0); MEAN CORPUSCULAR HEMOGLOBIN 28.3 pg (25.0-35.0); MEAN CORPUSCULAR HGB CONC 33.5 g/dl (31.0-37.0); MEAN PLATELET VOLUME 9.5 fl (7.0-11.0); MONO # 1.2 (0.1-0.6); MONO % 8.6 % (1.0-6.0); RBC 2.9 10^6/uL (3.5-6.1); WHITE BLOOD COUNT 13.6 10^3/uL (4.5-11.0)
[2018-07-20 07:17] LABS: ALB/GLOB RATIO 0.8 (1.1-1.8); ALBUMIN 2.6 g/dL (3.0-4.8); ALT/SGPT 46 U/L (7-56); AST/SGOT 76 U/L (17-59); BILIRUBIN,DIRECT 10.8 mg/dL (0.0-0.4); BLOOD UREA NITROGEN 10 mg/dL (7-21); CALCIUM 8.1 mg/dL (8.4-10.5); GFR NON-AFRICAN AMERICAN > 60
[2018-07-20] MEDS ORDERED: Potassium Chloride 20 mEq ER Tab PO STA (08:12)
[2018-07-20] MEDS ORDERED: HYDROmorphone 1 mg/ml ISec IVP ONE (08:45)
[2018-07-20] MEDS: Enoxaparin 30 mg Syringe SC SCH (10:27)
[2018-07-20] MEDS: Multivitamin With Minerals Tab PO SCH (10:28)
--- NOTE | 2018-07-20 10:39 | US ---
HISTORY: Leg pain and swelling. Evaluate for DVT PHYSICIAN(S): Andrez Becerra MD. TECHNIQUE: Duplex sonography and color-flow Doppler with graded compression were used to evaluate the deep venous systems of both lower extremities. FINDINGS: The visualized deep venous systems of both lower extremities are sonographically normal and compressible. Normal wave forms and augmentation are seen. There is no sonographic evidence for deep venous thrombosis in the visualized segments of both lower extremities. IMPRESSION: No sonographic evidence for deep venous thrombosis in the visualized segments of both lower extremities.
[2018-07-20] MEDS: Albumin Human 25% (12.5 gm/50 ml) IV SCH ×2 (10:55→14:53)
[2018-07-20] MEDS ORDERED: Darbepoetin Alfa 100 mcg/ml Inj SC ONE (11:48)
--- NOTE | 2018-07-20 13:07 | CP.PCM.PN ---
<Filiberto Bahena - Last Filed: 07/20/18 14:38> Subjective - Date & Time of Evaluation Date of Evaluation: 07/20/18 Time of Evaluation: 07:20 - Subjective Subjective: Medicine Progress Note for Hospitalist Service, Dr. Janeen Bahena, DO PGY-1 Pt seen and examined at bedside this am. Denies any acute complaints, states pain is well controlled. C/o bilateral LE edema, but able to ambulate around room without concerns. No acute events reported overnight. Denies headache, fever, chills, chest pain, sob, n/v/d/c, abd pain, urinary complaints, or other symptoms. Objective - Vital Signs/Intake and Output Vital Signs (last 24 hours): Temp Pulse Resp BP Pulse Ox 98.5 F 103 H 20 116/70 93 L 07/20/18 08:06 07/20/18 08:06 07/20/18 08:06 07/20/18 12:22 07/20/18 08:06 Intake and Output: 07/20/18 07/20/18 06:59 18:59 Intake Total 600 Output Total 1425 Balance -825 - Medications Medications: Current Medications Albumin Human (Albumin Human 25% (12.5 Gm/50 Ml)) 25 gm IV 1000,1200 [facility] Last Admin: 07/20/18 10:55 Dose: 25 gm Amlodipine Besylate (Norvasc) 10 mg PO DAILY [facility]SE[facility] Last Admin: 07/20/18 10:28 Dose: 10 mg Enoxaparin Sodium (Lovenox) 30 mg SC DAILY JOSEFIN[facility]; Protocol Last Admin: 07/20/18 10:27 Dose: 30 mg Hydromorphone HCl (Dilaudid) 2 mg IVP Q4H PRN PRN Reason: Pain, severe (8-10) Last Admin: 07/20/18 12:21 Dose: 2 mg Iron Sucrose 100 mg/ Sodium (Chloride) 105 mls @ 210 mls/hr IVPB DAILY [facility]SEFIN[facility] Stop: 07/22/18 12:46 Last Admin: 07/20/18 12:22 Dose: 210 mls/hr Multivitamins/Minerals (Therapeutic-M Tab) 1 tab PO DAILY [facility]SEFIN[facility] Last Admin: 07/20/18 10:28 Dose: 1 tab Ondansetron HCl (Zofran Inj) 4 mg IVP Q4H PRN PRN Reason: Nausea/Vomiting Oxycodone HCl (Oxycodone Immediate Release Tab) 10 mg PO Q6H PRN PRN Reason: Pain, moderate (4-7) Last Admin: 07/20/18 02:02 Dose: 10 mg - Labs Labs: 07/20/18 06:30 07/20/18 06:30 PT 16.7 SECONDS (9.4-12.5) H 07/16/18 06:15 INR 1.44 07/16/18 06:15 APTT 27.6 Seconds (25.1-36.5) 07/16/18 06:15 - Constitutional Appears: Non-toxic, No Acute Distress, Chronically Ill - Head Exam Head Exam: ATRAUMATIC, NORMOCEPHALIC - Eye Exam Eye Exam: EOMI, Normal appearance, PERRL - ENT Exam ENT Exam: Mucous Membranes Moist - Respiratory Exam Respiratory Exam: Clear to Ausculation Bilateral, NORMAL BREATHING PATTERN. absent: Rales, Rhonchi, Wheezes - Cardiovascular Exam Cardiovascular Exam: REGULAR RHYTHM, +S1, +S2. absent: Gallop, Rubs, Murmur - GI/Abdominal Exam GI & Abdominal Exam: Distended, Soft, Normal Bowel Sounds. absent: Guarding, Tenderness, Organomegaly - Extremities Exam Extremities Exam: Full ROM, Normal Capillary Refill, Pedal Edema (1+ b/l). 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 Stage T3 N1), bowel obstruction s/p emergent laparotomy resulting in R hemicolectomy, tobacco use disorder, chronic anemia and history of DVT (2015) who presented to the emergency room for evaluation and treatment of changing skin color and diarrhea. Currently admitted for management of abd pain. Plan: Hyperbilirubinemia - Likely 2/2 stricture 2/2 colon cancer - 07/15/[address] scan- Redemonstration of hepatomegaly with innumerable hepatic metastases. Dilated small bowel loops compatible with ileus/partial small bowel obstruction. Extensive ascites - IR consulted- percutaneous transhepatic cholangiography performed, hilar obstruction related to malignant disease seen, successful placement of a 12 [place] internal/external biliary drain, bilious drain output noted - Trending up to 12.3 today from 10.2 yesterday, will continue to monitor Abdominal Pain, Colon Adenocarcinoma - Continue chemotherapy in the outpatient setting - Continue Oxycodone 10mg q6h prn moderate pain, dilaudid 2mg IV q4h for severe pain as per IR - Surgery consulted- appreciate recommendations - Heme/onc consulted- appreciate recommendations Anemia - H/H 8.2, trending down- likely 2/2 procedure - Normocytic - S/p venofer 100mg x 1 - Monitor closely via CBC [place] - Resolved s/p catheter placement - D/c baclofen 5mg TID - D/c prochlorperazine Hx of HTN - Continue home amlodipine with holding parameters Tobacco Abuse - Dangers of tobacco use provided to patient - Smoking cessation advised Pt seen, examined with, and plan discussed with Dr. Kruse, attending physician. Filiberto Bahena DO PGY-1, Floorworker Pager #[phone] <Janeen Kruse R - Last Filed: 07/20/18 19:35> Objective - Vital Signs/Intake and Output Vital Signs (last 24 hours): Temp Pulse Resp BP Pulse Ox 97.4 F L 99 H 20 113/66 93 L 07/20/18 16:56 07/20/18 16:56 07/20/18 16:56 07/20/18 16:56 07/20/18 16:56 Intake and Output: 07/20/18 07/21/18 18:59 06:59 Intake Total 660 Output Total 1050 Balance -390 - Medications Medications: Current Medications Albumin Human (Albumin Human 25% (12.5 Gm/50 Ml)) 25 gm IV 1000,1200 [facility] Last Admin: 07/20/18 14:53 Dose: 25 gm Amlodipine Besylate (Norvasc) 10 mg PO DAILY JOSEFINA Last Admin: 07/20/18 10:28 Dose: 10 mg Enoxaparin Sodium (Lovenox) 30 mg SC DAILY [facility]; Protocol Last Admin: 07/20/18 10:27 Dose: 30 mg Hydromorphone HCl (Dilaudid) 2 mg IVP Q4H PRN PRN Reason: Pain, severe (8-10) Last Admin: 07/20/18 17:56 Dose: 2 mg Iron Sucrose 100 mg/ Sodium (Chloride) 105 mls @ 210 mls/hr IVPB DAILY [facility]SE[facility] Stop: 07/22/18 12:46 Last Admin: 07/20/18 12:22 Dose: 210 mls/hr Multivitamins/Minerals (Therapeutic-M Tab) 1 tab PO DAILY [facility]SEFIN[facility] Last Admin: 07/20/18 10:28 Dose: 1 tab Ondansetron HCl (Zofran Inj) 4 mg IVP Q4H PRN PRN Reason: Nausea/Vomiting Oxycodone HCl (Oxycodone Immediate Release Tab) 10 mg PO Q6H PRN PRN Reason: Pain, moderate (4-7) Last Admin: 07/20/18 02:02 Dose: 10 mg - Labs Labs: 07/20/18 06:30 07/20/18 06:30 PT 16.7 SECONDS (9.4-12.5) H 07/16/18 06:15 INR 1.44 07/16/18 06:15 APTT 27.6 Seconds (25.1-36.5) 07/16/18 06:15 Attending/Attestation - Attestation I have personally seen and examined this patient.: Yes I have fully participated in the care of the patient.: Yes I have reviewed all pertinent clinical information, including history, physical exam and plan: Yes Notes (Text): Patient seen and examined by me with resident at 11:15 AM on 07/20/18. Case including HPI, physical exam, and assessment and plan discussed with resident. Agree with above with following additions/corrections. Patient is a 58 year old male with past medical history significant for Stage 3B colon cancer, bowel obstruction s/p laparotomy and right hemicolectomy, tobacco abuse, chronic anemia, and DVT that presented to the emergency room for change in skin color and diarrhea. Patient states he is feeling ok. Wants to go home. Patient is upset that his bilirubin is rising and patient is jaundiced. Still with abdominal pain, more prominent near drain site. Pain medications are helping. Patient denies any pain in his lower extremities. No nausea or vomiting. No chest pain or palpitations. No fevers or chills. No dysuria. No headaches or dizziness. Patient denies diarrhea. Physical exam: General: Awake and alert sitting up in bed in no acute distress HEENT: Normocephalic, atraumatic. Extraocular muscles intact, pupils equal and reactive, positive scleral icterus. Oropharynx is pink moist. Neck is supple. Cardiovascular: Regular rhythm. Normal S1 and S2. No murmurs, rubs, or gallops appreciated Pulmonary: Normal respiratory effort. No rhonchi, rales, or wheezing appreciated Gastrointestinal: Soft. Distended. Positive tenderness more prominent near drain site. Drain in place with bilious output. Positive bowel sounds all 4 quadrants. No guarding. Musculoskeletal: Moves all extremities. No calf tenderness. Positive bilateral lower extremity pitting edema. Central nervous system: AAOx3. CN 2-12 grossly intact. Dermatologic: Skin warm and dry. Skin jaundiced. Assessment and plan: Patient is a 58 year old male with past medical history significant for Stage 3B colon cancer, bowel obstruction s/p laparotomy and right hemicolectomy, tobacco abuse, chronic anemia, and DVT that presented to the emergency room for change in skin color and diarrhea. 1. Hyperbilirubinemia. Jaundice. Worsening. May be secondary to tumor burden and obstruction from progressive tumor. Patient s/p percutaneous transhepatic cholangiography with placement of biliary drain. Continue to monitor output. Liver CT per radiologist showed redemonstration of hepatomegaly with innumerable hepatic metastases, dilated small bowel loops compatible with ileus/partial small bowel obstruction, extensive ascites. IR following, recommendations appreciated. GI following, recommendations appreciated. Hem/onc following, recommendations appreciated. 2. Abdominal pain. Stage 3B colon cancer. Continue with pain management. Patient to continue outpatient Chemotherapy. Patient for possible chemo on 07/22/18. Hem/onc following, recommendations appreciated. Surgery following, recommendations appreciated. 3. Abdominal distention. Ascites. Patient receiving Lasix and albumin per hem/onc 4. Bilateral lower extremity edema. Continue Lasix per Hem/onc. Bilateral lower extremity venous dopplers negative for DVT. Keep legs elevated. Continue jake stockings. 5. Anemia. Likely secondary to malignancy. Slowly downtrending. Receiving IV iron. Hem/onc following, recommendations appreciated. Continue to monitor. 6. Leukocytosis. Likely secondary to malignancy. Afebrile. Downtrending. Continue to monitor. 6. Hypokalemia. Replace with oral potassium. Follow up repeat labs in AM. Likely secondary to Lasix 7. Hyponatremia/hypochloremia. Likely secondary to Lasix. Continue to monitor 8. Hiccups. Resolved. Continue to monitor. 9. Essential hypertension. Continue Norvasc. 10. Tobacco abuse. Patient counseled on tobacco cessation 11. DVT prophylaxis. Lovenox 12. Patient is a full code. Case was discussed in detail with patient and hem/onc Dr. Carter regarding current diagnosis and treatment plan. All questions answered.
[2018-07-21] MEDS: HYDROmorphone 2 mg/ml ISec IVP PRN ×3 (05:10→13:14)
[2018-07-21 07:17] LABS: BASO # 0.02 K/mm3 (0.0-2.0); BASO % 0.2 % (0.0-3.0); EOS # 0.1 (0.0-0.7); EOS % 0.9 % (1.5-5.0); GRAN # 9.14 (1.4-6.5); GRAN % 80.3 % (50.0-68.0); HEMOGLOBIN 7.8 g/dL (14.0-18.0); LYMPH # 1.4 (1.2-3.4); LYMPH % 12.1 % (22.0-35.0); MEAN CELL VOLUME 83.8 fl (80.0-105.0); MEAN CORPUSCULAR HEMOGLOBIN 28.1 pg (25.0-35.0); MEAN CORPUSCULAR HGB CONC 33.5 g/dl (31.0-37.0); MEAN PLATELET VOLUME 9.3 fl (7.0-11.0); MONO # 0.7 (0.1-0.6); MONO % 6.5 % (1.0-6.0); RBC 2.78 10^6/uL (3.5-6.1); RED CELL DISTRIBUTION WIDTH 22.2 % (11.5-14.5); WHITE BLOOD COUNT 11.4 10^3/uL (4.5-11.0)
[2018-07-21 07:30] LABS: ALB/GLOB RATIO 0.8 (1.1-1.8); ALBUMIN 2.5 g/dL (3.0-4.8); ALT/SGPT 49 U/L (7-56); AST/SGOT 68 U/L (17-59); BLOOD UREA NITROGEN 9 mg/dL (7-21); CALCIUM 8.2 mg/dL (8.4-10.5); GFR NON-AFRICAN AMERICAN > 60
[2018-07-21] MEDS ORDERED: Potassium Chloride 20 mEq ER Tab PO STA (07:37)
[2018-07-21 08:44] VITALS: PULSE 91; RESP 19; TEMP 98.3; O2SAT 95
--- NOTE | 2018-07-21 09:08 | PN ---
DATE: 07/20/2018 ONCOLOGY PROGRESS NOTE LOCATION: The patient is in room 372, bed 1. SUBJECTIVE: A 58-year-old male with metastatic stage IV carcinoma of the colon with progressive worsening jaundice secondary to involvement of the liver with erasmo hepatis secondary to metastatic disease who was admitted to the hospital up on which the patient had rapid scans done which include CT of the abdomen with triphasic liver contrast showing dilated liver ducts, hepatic ducts in the right lobe of the liver with occlusion at the level of erasmo hepatis. The patient had a PTCA done through the right sided approach and Dr. Andrez Becerra was able to place a catheter through the transhepatic approach into the duodenum with the help of a guidewire, and over the guidewire, the catheter was passed and bilirubin has been gradually trending down but has not been normalized yet. Secondary to persistent disease, our plan was to see if the bilirubin could come down to manageable level so that we will continue with chemotherapy with the hope that with ongoing therapy, the tumor should shrink further. The patient is status post one cycle of FOLFOX, 6 modified therapy along with Avastin given about two weeks ago. Subjectively, the patient is examined at the bedside. He denies any acute complaints. Pain is well controlled. Complaining of lower extremity edema which appears to be improving, was able to ambulate around the nurse's station without significant concerns. Did not have any headache, fever, chills, nausea, vomiting. History of hiccups, now which appears dissipated since the pressure on the liver has been relieved. The patient was supposed to be scheduled for paracentesis this morning and that hold off on that after discussing with the hospitalist and the resident on the case. PHYSICAL EXAMINATION: VITAL SIGNS: Reveal that the patient's vital signs to be stable. T-max is 98.4, pulse is 103, respirations 20, blood pressure is 116/70, pulse is 93. HEENT: Head is normocephalic and atraumatic. The patient is icteric. Temporal muscle wasting is noted. Examination of the oropharynx reveals tongue to be moist. No oropharyngeal lesions are noted. The patient has poor dentition. NECK: Supple. There is no adenopathy. No jugular venous distension noted. The patient has a port in the right chest wall. LUNGS: Clear to percussion and auscultation. CARDIOVASCULAR SYSTEM: Reveals S1 and S2 normal. No gallop or murmur is heard. ABDOMEN: Markedly distended with palpable liver that is extending at least 18 to 20 cm below the right costal margin. It is firm, nontender. EXTREMITIES: The patient has full range of motion of all four extremities. He has 4+ edema in both lower extremities. No calf tenderness. NEUROLOGIC: Reveals higher functions to be normal. No focal deficits are noted. SKIN: Dry, intact and warm. LABORATORY DATA: Reveals white count 13.6, hemoglobin 8.2, hematocrit 24.5, and platelet count 520,000. Sodium is 127, potassium 3.3, chloride is 93. CO2 is 29. BUN is 10, creatinine 0.5, blood sugar is 95. MEDICATIONS: The patient's medications were reviewed and is on IV albumin that is given every day 25 g. Amlodipine 10 mg p.o. daily, Lovenox 30 mg subcu daily, Dilaudid p.r.n. as needed for pain. He is on IV Venofer for his iron-deficiency anemia. He is on Zofran p.r.n. for his nausea and oxycodone 10 mg p.o. every 4 hours for mild to moderate pain. ASSESSMENT AND PLAN: This is a 58-year-old male with stage IV recurrent progressive carcinoma of the colon with disease in the liver that is mainly symptomatic at this time presenting with obstructing jaundice, status post placement of an internal and external common bile duct catheter. The patient continues to have external biliary drainage which is putting about 300 mL every shift. Bilirubin is trending around 12 from the 10.3 yesterday and was 15 three days ago. Anemia is stable at this time with 8.2 grams. We discussed with the patient and family, plan to give the patient extra IV iron for today and tomorrow, the patient is also going to head and get a dose of Aranesp 100 mcg today. We will continue to monitor the vital signs and CBC on a daily basis. PLAN: The patient is going to get more albumin and Lasix today and tomorrow, and we will check his blood count tomorrow and our plan is to ultimately get him started again on outpatient chemotherapy on Friday, agent and that does not have to be comprised even if the total bilirubin is about 4.6. The rest of the drugs will have to be put on hold, couple of cycles of alone was given and tumor shrinks and biliary drainage improves. Detailed discussion with the patient's sister. Spoke to the patient's niece as well and explained all my findings in great detail. Family and the patient's mother was counseled regarding his overall condition as his mother was trying about her son's deterioration. Please make a note that this is a complex patient and multiple comorbid medical condition, time spent on the patient in correlating all the facts discussing with the patient and the family in great detail and discussing my plans with the nurse taking care of the patient was around 45 minutes. Nancy Carter MD
[2018-07-21] MEDS: Enoxaparin 30 mg Syringe SC SCH (10:03)
[2018-07-21] MEDS: Multivitamin With Minerals Tab PO SCH (10:03)
[2018-07-21] MEDS: Albumin Human 25% (12.5 gm/50 ml) IV SCH ×2 (10:54→13:11)
[2018-07-21] MEDS ORDERED: Potassium Chloride 20 mEq ER Tab PO ONE (12:00)
--- NOTE | 2018-07-21 12:06 | CP.PCM.DIS ---
Provider - Provider Date of Admission: 07/15/18 12:23 Attending physician: Naeem Awad MD Primary care physician: David Peter MD Consults: 07/15/18 09:23 Physician Consult Routine Comment: Consulting Provider: Andrez Becerra Consulting Physician: Andrez Becerra Reason for Consult: percutaneous transhepatic cholangiography 07/15/18 09:27 General Surgery Consult Stat Comment: Consulting Provider: Jt Storey Consulting Physician: Jt Storey Reason for Consult: abd pain, h/o colon ca with liver mets 07/15/18 15:28 Consult [Physician Consult] Routine Comment: Consulting Provider: David Villagomez Consulting Physician: David Villagomez Reason for Consult: elevated bilirunin, colon ca on chemo 07/15/18 16:54 Nursing Referral for Palliative Care Routine Comment: protocol Physician Instructions: Reason For Exam: score 12 07/15/18 17:06 Social Work Referral Routine Comment: protocol Physician Instructions: Reason For Exam: discharge planning 07/15/18 17:23 Physician Consult Routine Comment: Consulting Provider: Nancy Carter Consulting Physician: Nancy Carter Reason for Consult: pt known to you, Colon cancer with Liver metastasis Time Spent in preparation of Discharge (in minutes): 45 Diagnosis - Discharge Diagnosis (1) Hyperbilirubinemia Status: Acute (2) Abdominal pain Status: Resolved (3) Anemia Status: Chronic (4) Singultus Status: Resolved (5) Tobacco abuse Status: Chronic (6) Colon cancer metastasized to liver Status: Chronic (7) Liver mass Status: Chronic Hospital Course - Lab Results Lab Results: Most Recent Lab Values WBC 11.4 10^3/uL (4.5-11.0) H 07/21/18 07:00 RBC 2.78 10^6/uL (3.5-6.1) L 07/21/18 07:00 Hgb 7.8 g/dL (14.0-18.0) L 07/21/18 07:00 Hct 23.3 % (42.0-52.0) L 07/21/18 07:00 MCV 83.8 fl (80.0-105.0) 07/21/18 07:00 MCH 28.1 pg (25.0-35.0) 07/21/18 07:00 MCHC 33.5 g/dl (31.0-37.0) 07/21/18 07:00 RDW 22.2 % (11.5-14.5) H 07/21/18 07:00 Plt Count 504 10^3/uL (120.0-450.0) H 07/21/18 07:00 MPV 9.3 fl (7.0-11.0) 07/21/18 07:00 Gran % 80.3 % (50.0-68.0) H 07/21/18 07:00 Lymph % (Auto) 12.1 % (22.0-35.0) L 07/21/18 07:00 [place] % (Auto) 6.5 % (1.0-6.0) H 07/21/18 07:00 Eos % (Auto) 0.9 % (1.5-5.0) L 07/21/18 07:00 Baso % (Auto) 0.2 % (0.0-3.0) 07/21/18 07:00 Gran # 9.14 (1.4-6.5) H 07/21/18 07:00 Lymph # (Auto) 1.4 (1.2-3.4) 07/21/18 07:00 [place] # (Auto) 0.7 (0.1-0.6) H 07/21/18 07:00 Eos # (Auto) 0.1 (0.0-0.7) 07/21/18 07:00 Baso # (Auto) 0.02 K/mm3 (0.0-2.0) 07/21/18 07:00 Neutrophils % (Manual) 88 % (50.0-70.0) H 07/18/18 06:00 Lymphocytes % (Manual) 9 % (22.0-35.0) L 07/18/18 06:00 Monocytes % (Manual) 2 % (1.0-6.0) 07/18/18 06:00 Eosinophils % (Manual) 1 % (0.0-3.0) 07/18/18 06:00 Platelet Evaluation High (NORMAL) 07/18/18 06:00 Hypochromasia Slight 07/18/18 06:00 Anisocytosis (manual) Slight 07/18/18 06:00 PT 16.7 SECONDS (9.4-12.5) H 07/16/18 06:15 INR 1.44 07/16/18 06:15 APTT 27.6 Seconds (25.1-36.5) 07/16/18 06:15 Fibrinogen 324 mg/dl (200-400) 07/16/18 06:15 Fibrin Degrad Products >10 <40 ug/ml (< 10 ug/mL) 07/16/18 09:45 pO2 93 mm/Hg (30-55) H 07/15/18 08:45 VBG pH 7.47 (7.32-7.43) H 07/15/18 08:45 VBG pCO2 39.0 (40-60) L 07/15/18 08:45 VBG HCO3 28.4 mmol/l (21-28) H 07/15/18 08:45 VBG Total CO2 29.6 mmol.L (22-28) H 07/15/18 08:45 VBG O2 Sat (Calc) 99.6 % (40-65) H 07/15/18 08:45 VBG Base Excess 4.5 mmol/L (0.0-2.0) H 07/15/18 08:45 VBG Potassium 2.9 mmol/L (3.6-5.2) L 07/15/18 08:45 Sodium 134.0 mmol/L (132-148) 07/15/18 08:45 Chloride 100.0 mmol/L (98-107) 07/15/18 08:45 Glucose 91 mg/dl (75-110) 07/15/18 08:45 Lactate 1.6 mmol/L (0.7-2.1) 07/15/18 08:45 FiO2 21.0 % 07/15/18 08:45 Sodium 129 mmol/L (132-148) L 07/21/18 07:00 Potassium 3.0 mmol/L (3.6-5.0) L 07/21/18 07:00 Chloride 94 mmol/L (98-107) L 07/21/18 07:00 Carbon Dioxide 29 mmol/L (21-33) 07/21/18 07:00 Anion Gap 10 (10-20) 07/21/18 07:00 BUN 9 mg/dL (7-21) 07/21/18 07:00 Creatinine 0.5 mg/dl (0.8-1.5) L 07/21/18 07:00 Est GFR ( Amer) > 60 07/21/18 07:00 Est GFR (Non-Af Amer) > 60 07/21/18 07:00 Random Glucose 104 mg/dL (70-110) 07/21/18 07:00 Calcium 8.2 mg/dL (8.4-10.5) L 07/21/18 07:00 Phosphorus 4.2 mg/dL (2.5-4.5) 07/16/18 06:15 Magnesium 1.7 mg/dL (1.7-2.2) 07/20/18 06:30 Total Bilirubin 11.0 mg/dL (0.2-1.3) H 07/21/18 07:00 Direct Bilirubin 10.8 mg/dL (0.0-0.4) H 07/20/18 06:30 AST 68 U/L (17-59) H 07/21/18 07:00 ALT 49 U/L (7-56) 07/21/18 07:00 Alkaline Phosphatase 157 U/L (38-126) H 07/21/18 07:00 Ammonia 28 umol/L (9-33) 07/15/18 08:45 Total Protein 5.6 g/dL (5.8-8.3) L 07/21/18 07:00 Albumin 2.5 g/dL (3.0-4.8) L 07/21/18 07:00 Globulin 3.1 gm/dL 07/21/18 07:00 Albumin/Globulin Ratio 0.8 (1.1-1.8) L 07/21/18 07:00 Lipase 10 U/L (23-300) L 07/15/18 08:45 Venous Blood Potassium 2.9 mmol/L (3.6-5.2) L 07/15/18 08:45 Urine Color Light brown (YELLOW) 07/15/18 08:45 Urine Appearance Sl cloudy (CLEAR) 07/15/18 08:45 Urine pH 6.5 (4.7-8.0) 07/15/18 08:45 Ur Specific [place] 1.020 (1.005-1.035) 07/15/18 08:45 Urine Protein Trace mg/dL (<30 mg/dL) H 07/15/18 08:45 Urine Glucose (UA) 100 mg/dL (NEGATIVE) H 07/15/18 08:45 Urine Ketones Negative mg/dL (NEGATIVE) 07/15/18 08:45 Urine Blood Negative (NEGATIVE) 07/15/18 08:45 Urine Nitrate Negative (NEGATIVE) 07/15/18 08:45 Urine Bilirubin Large (NEGATIVE) H 07/15/18 08:45 Urine Urobilinogen 1.0 E.U./dL (<1 E.U./dL) H 07/15/18 08:45 Ur Leukocyte Esterase Negative [place]/uL (NEGATIVE) 07/15/18 08:45 Urine RBC Negative /hpf (0-2) 07/15/18 08:45 Urine WBC 2 - 5 /hpf (0-6) 07/15/18 08:45 Ur Epithelial Cells 0 - 2 /hpf (0-5) 07/15/18 08:45 Urine Bacteria Mod (NEG) 07/15/18 08:45 - Hospital Course Hospital Course: HPI at time of admission: "58 year old male with a past medical history significant for Stage 3b Colon cancer (locally advanced cecal adenocarcinoma with lymphovascular invasion, Tillman II. Stage T3 N1), bowel obstruction s/p emergent laparotomy resulting in R hemicolectomy tobacco use disorder, chronic anemia and history of DVT (2015) who presents to the emergency room for evaluation and treatment of changing skin color and diarrhea. States symptoms started approximately 1 week ago after starting chemotherapy. States he is experiencing approximately 3-4 loose non- bloody bowel movements in the morning. Admits that his skin and color have been gradually developing yellowish hue. Patient denies fever, chills, night sweat, headache, dizziness, chest pain, shortness of breath, dyspnea on exertion, cough, nausea, vomiting, diarrhea, hematochezia, rectal bleeding, and urinary symptoms." Hospital Course: Pt was admitted for management of abd pain 2/2 possible ileus (however pt has been having BMs and tolerating diet), hyperbilirubinemia, sinugltus, and anemia. Pertinent imagin07/15/2018: Triple phase CT scan- Redemonstration of hepatomegaly with innumerable hepatic metastases. Dilated small bowel loops compatible with ileus/partial small bowel obstruction. Extensive ascites. Pt had hyperbilirubinemia likely 2/2 to stricture 2/2 to colon cancer. Levels trended down during admission after percutaneous transhepatic cholangiography by Dr. Becerra (IR) was performed. Pt had hilar obstruction related to malignant disease seen, successful placement of a 12 Malay internal/external biliary drain, bilious drain output noted after procedure. Pt was managed for abd pain with oxycodone and dilaudid. Surgery was consulted (Dr. Storey) who recommended no acute surgical management for ileus. Heme/Onc (Dr. Carter) was also consulted, due to pt seeing specialist outpatient for chemotherapy. Pt also had anemia during admission, likely 2/2 to IR procedure. Received Venofer inpatient. Hgb stable on day of discharge. Pt also had singultus which resolved s/p catheter placement. Pt was educated on importance of smoking cessation. Pt was discharged to home in stable condition on 07/21/18. Was given supplies and instructions to flush drain twice daily, with dressing changes every 4 days. Pt was instructed to follow up tomorrow 07/22/18 at Oncology clinic for appt with Dr. Carter. Pt was instructed to resume home medications as prescribed, given Oxycodone script from Dr. Carter for pain control outpatient for abd pain 2/2 metastatic colon cancer. Pt was also instructed to follow-up with his PMD Dr. Peter within 3-5 days of hospital discharge All questions and concerns were addressed with pt and pt's family, who were all in agreement to plan and course of treatment/follow-up. Discharge Exam - Head Exam Head Exam: ATRAUMATIC, NORMOCEPHALIC - Eye Exam Eye Exam: EOMI, Normal appearance, PERRL - ENT Exam ENT Exam: Mucous Membranes Moist - Respiratory Exam Respiratory Exam: Clear to PA & Lateral, NORMAL BREATHING PATTERN, UNREMARKABLE - Cardiovascular Exam Cardiovascular Exam: REGULAR RHYTHM, +S1, +S2. absent: Gallop, Rubs, Systolic Murmur - GI/Abdominal Exam GI & Abdominal Exam: Distended, Normal Bowel Sounds, Soft. absent: Tenderness - Extremities Exam Extremities exam: full ROM, normal capillary refill, normal inspection, pedal edema (1+ pedal edema b/l), pedal pulses present - Neurological Exam Neurological exam: Alert, CN II-XII Intact, Normal Gait, Oriented x3, Reflexes Normal - Skin Skin Exam: Dry, Intact, Normal Color, Warm Discharge Plan - Discharge Medications Prescriptions: oxyCODONE [oxyCODONE Immediate Release Tab] 10 mg PO Q6 #90 tab - Follow Up Plan Condition: FAIR Disposition: HOME/ ROUTINE Instructions: Small Bowel Obstruction (DC), On Q Pain Pump Additional Instructions: Please follow up with the oncology clinic tomorrow July 21 for chemotherapy at 8:00AM. Please follow up with Dr. Carter as outpatient in 3-5 days. Please follow up with primary medical doctor, Dr. Peter in 3-5 days. Continue all home medications. Drain care instructions are as follows: - Flush drain with 10ml of sterile water TWICE DAILY - Change drain dressing EVERY 4 DAYS If your symptoms return, please go to the nearest emergency department. Referrals: David Peter MD [Primary Care Provider] - Nancy Carter MD [Staff Provider] -
[2018-07-21 15:40] VITALS: BP 116/72
--- NOTE | 2018-07-22 00:07 | PN ---
DATE: 07/21/2018 ONCOLOGY PROGRESS NOTE LOCATION: The patient is seen in room 372, bed 1. SUBJECTIVE: The patient is feeling better, less pain, less edema. Abdominal distention appears to be better with diuretics and Lasix that he has been getting along with IV albumin. Icterus is slightly improved, but albeit not as aggressively and as dramatically as we would like to expect it. The patient has a stent in the common bile duct; it was entered through the right hepatic ducts with a right-sided approach as the patient had obstruction at the erasmo hepatis with dilated intrahepatic ducts in the right hepatic lobe. Left lobe of the liver started with multiple metastatic sites from the colon tumor, which he had about 2 years ago. During the hospital stay, since he had the drain put in, the patient has had a constant biliary output of about 300 mL up to 400 mL every shift. The patient's port is being flushed twice a day. The patient's hiccup has improved. He has no significant hiccups, no fevers, no nausea, vomiting. The patient is ambulating outside with minimal help and overall, the patient's clinical condition and symptoms appear to have improved. We held off on the paracentesis yesterday in view of the fact that the patient is going to be requiring systemic chemotherapy soon, and we are hoping to see that we continue to stick with our plan as far as giving him chemotherapy on schedule. The patient denies any history of fevers or chills or any acute events overnight. PHYSICAL EXAMINATION GENERAL: The patient is awake, alert, and oriented. VITAL SIGNS: Stable as stated in the chart. HEENT: Head is normocephalic, atraumatic. Conjunctivae pale. Sclerae are icteric. Pupils are equally reactive to light and accommodation. Tongue is moist. No ulcerations are noted. No oropharyngeal lesions are noted. NECK: Supple. There is no adenopathy. No jugular venous distention noted. LUNGS: Clear to percussion and auscultation with decreased breath sounds on the right side posteriorly. ABDOMEN: Distended. There is an enlarged liver that extends up to 20 cm below the right costal margin. The patient has a biliary drainage catheter, which is draining copious yellowish bile. The patient's biliary catheter is being flushed twice a day. As I mentioned is protuberant. The patient has ascites. No rebound, rigidity, or guarding is noted. CARDIOVASCULAR SYSTEM: Reveals PMI to be in the 5th intercostal space inside the midclavicular line. S1 and S2 are normal. No gallop or murmur is heard. EXTREMITIES: Edema in both lower extremities has decreased substantially. He still has 3+ edema extending up to the knee, both legs, left greater than the right. NEUROLOGICAL: Reveals higher functions to be normal. No focal deficits are noted. Plantars are flexor. GENITOURINARY/RECTAL: Deferred. SKIN: Turgor is decreased. No skin lesions are noted. The patient is jaundiced clinically. LABORATORY DATA: From today were reviewed and they revealed the following; white count is 11.4, hemoglobin 7.8, hematocrit 23, platelet count of 504,000. Chemistries revealed sodium of 129, K of 3, chloride of 94. Total bili is up to 11. AST is 68, ALT is 49. Total protein is 5.6 with an albumin of 2.5. MEDICATIONS: The patient's medications were reviewed and they are unchanged at this time. The patient is going to continue his IV albumin and is also going to get Lasix post albumin. The patient's blood count has dropped, so we are going to try to set him up for blood transfusion as an outpatient. The patient will require 2 units of blood. The patient has been given script for oxycodone 10 mg tablets 1 tablet every 6-8 hours for relief of pain. The patient's CBD catheter will be flushed twice a day. Nurses have been teaching the family how to take care of it. The patient is going to return to the outpatient Oncology clinic in a.m. Because of his elevated bilirubin, we are going to give him single agent, just oxaliplatin alone while we monitor the patient very carefully. The patient has been getting IV Venofer, and he also received one dose of Aranesp, and we will see what his blood counts are by tomorrow morning. ASSESSMENT, NOTES, AND PLAN: Stage IV progressive metastatic colon cancer with progressive metastasis in the liver associated with the liver dysfunction in the form of elevated bilirubin secondary to obstruction of the erasmo hepatis level, status post placement of a catheter, transhepatic catheter, extending all the way into the duodenum that is being flushed twice a day and hopefully that should bring down the bilirubin over the next 2 weeks. We embarked on treating the patient with oxaliplatin whether he can be consistent and dense without treatments. Hiccups are improved; otherwise, the patient does have hiccups. We can send him home on baclofen as well, which is 5 mg t.i.d. Routine post-exam instructions have been given to the patient. The patient will return to the clinic tomorrow. We will address the electrolytes, potassium and hemoglobin, and the plans for the chemotherapy. Nancy Carter MD
== END 2018-07-21 17:07 | disposition home or self-care (01) | DRG 389 ==
LOC: ED 08:28 → ERH 12:23 → 3RSO 16:52
PROVIDERS: ADMIT Hospitalist; ATTEND Internal Medicine
PROC: 0F753DZ Dilation of Right Hepatic Duct with Intraluminal Device, Percutaneous Approach (ICD-10-PCS; principal; 2018-07-16)
DX: K56.600 Partial intestinal obstruction, unspecified as to cause (principal); R18.8 Other ascites; C18.9 Malignant neoplasm of colon, unspecified; C78.7 Secondary malignant neoplasm of liver and intrahepatic bile duct; E87.1 Hypo-osmolality and hyponatremia; K56.7 Ileus, unspecified; D64.9 Anemia, unspecified; D72.829 Elevated white blood cell count, unspecified; E87.8 Other disorders of electrolyte and fluid balance, not elsewhere classified; E87.6 Hypokalemia; F17.210 Nicotine dependence, cigarettes, uncomplicated; I10 Essential (primary) hypertension; T50.1X5A Adverse effect of loop [high-ceiling] diuretics, initial encounter; Z80.3 Family history of malignant neoplasm of breast; Z82.49 Family history of ischemic heart disease and other diseases of the circulatory system; Z83.3 Family history of diabetes mellitus; Z90.49 Acquired absence of other specified parts of digestive tract; Z92.21 Personal history of antineoplastic chemotherapy; Z86.718 Personal history of other venous thrombosis and embolism; R06.6 Hiccough

== ENCOUNTER 2018-08-13 09:32 | Day surgery (SDC) | payer OTHER ==
[2018-08-13 10:11] VITALS: BMI 20.4
[2018-08-13 10:58] LABS: BASO # 0.04 K/mm3 (0.0-2.0); BASO % 0.2 % (0.0-3.0); EOS # 0.1 (0.0-0.7); EOS % 0.7 % (1.5-5.0); GRAN # 17.17 (1.4-6.5); GRAN % 85.3 % (50.0-68.0); HEMOGLOBIN 10.3 g/dL (14.0-18.0); LYMPH # 1.2 (1.2-3.4); MEAN CELL VOLUME 89.4 fl (80.0-105.0); MEAN CORPUSCULAR HEMOGLOBIN 29.6 pg (25.0-35.0); MEAN CORPUSCULAR HGB CONC 33.1 g/dl (31.0-37.0); MEAN PLATELET VOLUME 9.4 fl (7.0-11.0); MONO # 1.6 (0.1-0.6); MONO % 7.8 % (1.0-6.0); RBC 3.48 10^6/uL (3.5-6.1); RED CELL DISTRIBUTION WIDTH 20.3 % (11.5-14.5); WHITE BLOOD COUNT 20.1 10^3/uL (4.5-11.0)
[2018-08-13 11:05] LABS: BLOOD UREA NITROGEN 12 mg/dL (7-21); CALCIUM 9.3 mg/dL (8.4-10.5); GFR NON-AFRICAN AMERICAN > 60; INR 1.42; PARTIAL THROMBOPLASTIN TIME 30.4 Seconds (25.1-36.5); PROTHROMBIN TIME 16.4 SECONDS (9.4-12.5)
[2018-08-13] MEDS ORDERED: Lidocaine 2% Inj (20ml) ONE (11:39)
[2018-08-13] MEDS ORDERED: Iodixanol 320 MG/ML 200 ML BOTTLE IV ONE (11:40)
[2018-08-13] MEDS ORDERED: Midazolam 2 MG/2 ML VIAL ONE (12:17)
[2018-08-13] MEDS ORDERED: DiphenhydrAMINE 50 mg/ml Inj ONE (12:21)
[2018-08-13] MEDS ORDERED: Oxycodone/Acetaminophen 5/325 mg Tab PO PRN (12:39)
[2018-08-13] MEDS ORDERED: Sodium Chloride 0.45% 1,000 ML IV SCH (12:45)
[2018-08-13 13:28] VITALS: BP 138/81; PULSE 89; RESP 16; TEMP 98.3; O2SAT 98
--- NOTE | 2018-08-13 17:19 | CARD ---
APPROVED REPORT Date of service: 08/13/2018 EKG Measurement Heart [id number] CT [id number] [id number] <Conclusion> Normal sinus rhythm Nonspecific T wave abnormality Abnormal ECG CPT slightly improved NDSTT abnormalities
--- NOTE | 2018-08-13 18:15 | VASCULAR ---
PROCEDURE: 1. Revise and replace right internal/external biliary drain HISTORY: Metastatic colon carcinoma. Biliary obstruction. Displaced internal/external biliary drain PHYSICIAN(S): Andrez Becerra MD. TECHNIQUE: The relative risks and indications of the procedure were explained to the patient and his face and consent obtained. The patient was placed supine on the arteriogram table and the internal/external biliary drain prepped and draped usual sterile fashion. 1 percent xylocaine was used anesthetize the skin soft tissues at the insertion site. Conscious sedation monitoring were provided throughout the procedure by a nurse. Antibiotics were given. Contrast was injected through the tube and a limited cholangiogram performed. A 0.035 glidewire was advanced through the tube into the common bile duct. The old tube was removed. The the guidewire was manipulated into the duodenum. A new larger 14 [place] internal external biliary drain was placed over the wire. Its position was confirmed with injection of contrast. The catheter was flushed and secured. The patient tolerated the procedure well FINDINGS: The intrahepatic bile ducts are opacified are normal in caliber. There is a malignant obstruction at the level of the hilum. IMPRESSION: 1.Reposition and replace displaced internal/external biliary drain. 2. Malignant hilar obstruction.
== END 2018-08-13 15:56 | disposition home or self-care (01) ==
LOC: SDSVAS 09:32
PROVIDERS: ATTEND Radiology Vascular & Interventional Radiology
DX: C18.9 Malignant neoplasm of colon, unspecified (principal); C78.7 Secondary malignant neoplasm of liver and intrahepatic bile duct; K83.1 Obstruction of bile duct
CPT/HCPCS: 36415; 47536; 80048; 85025; 85610; 85730; 93005; 99152; A4358; C1729; C1769; J0690; J1200; J1644; J2250; J2405; J3010; J7030; Q9966

== ENCOUNTER 2018-08-13 16:59 | Emergency (ER) | payer OTHER ==
[2018-08-13 17:08] VITALS: TEMP 97; O2SAT 98; BMI 27.8
[2018-08-13 17:15] VITALS: BP 113/72; PULSE 95; RESP 20
--- NOTE | 2018-08-13 17:28 | ED PDOC ---
Arrival/HPI - General Chief Complaint: Chest Pain Time Seen by Provider: 08/13/18 17:18 Historian: Patient - History of Present Illness Narrative History of Present Illness (Text): 08/13/18 17:30 58 year old male, with past medical history of stage 3b Colon cancer (locally advanced cecal adenocarcinoma with lymphdovascular invasion, [place] II. Stage T3 N1), bowel obstruction s/p emergent laparotomy resulting in R hemicolectomy, tobacco use disorder, and chronic anemia and history of DVT (2014), presents to emergency department complaining of sharp chest pain following biliary drainage procedure. EKG performed in Same day surgery, now in Emergency department, patient denies any pain or symptoms at all and wishes to go home. Patient denies any fevers, headache, dizziness, shortness of breath, cough, abdominal pain, nausea, vomiting, diarrhea, back pain, neck pain, or any other complaints. PMD: Dr. Peter Time/Duration: Other (earlier today) Symptom Onset: Gradual Symptom Course: Unchanged Activities at Onset: Light Context: Other (after surgery ) Past Medical History - Provider Review Nursing Documentation Reviewed: Yes - Infectious Disease Hx of Infectious Diseases: None - Cardiac Hx Pacemaker: No - Pulmonary Hx Respiratory Disorders: Yes (SMOKES 1/2 PPD) - Neurological Hx Paralysis: No - HEENT Hx HEENT Disorder: Yes (wears glasses) - Renal Hx Renal Disorder: No - Endocrine/Metabolic Hx Endocrine Disorders: No - Hematological/Oncological Hx Blood Transfusions: Yes Hx Blood Transfusion Reaction: No Hx Cancer: Yes (colon , mets to liver) - Integumentary Other/Comment: jaundice - Musculoskeletal/Rheumatological Hx Musculoskeletal Disorders: No - Gastrointestinal Hx Gastrointestinal Disorders: Yes (perforated ulcer 6 yrs ago WITH REPAIR.) Other/Comment: SBO,COLON CA WITH LIVER MASS,RIGHT HEMICOLECTOMY - Genitourinary/Gynecological Hx Genitourinary Disorders: No - Psychiatric Hx Emotional Abuse: No Hx Physical Abuse: No Hx Substance Use: No - Surgical History Other/Comment: Perforated intestine 6 yrs ago - Anesthesia Hx Anesthesia Reactions: No Hx Malignant Hyperthermia: No - Suicidal Assessment Feels Threatened In Home Enviroment: No Family/Social History - Physician Review Nursing Documentation Reviewed: Yes Family/Social History: No Known Family HX Smoking Status: Former Smoker Hx Alcohol Use: Yes Hx Substance Use: No Allergies/Home Meds Allergies/Adverse Reactions: Allergies Penicillins Allergy (Unknown, Verified 06/18/18 13:25) ANAPHYLAXIS WAS TOLD CHILD Home Medications: Home Meds Medication Instructions Recorded Confirmed RX: Mv-Min/Folic/Vit K/Lycop/Coq10 1 each PO DAILY 06/01/18 08/13/18 [Daily Multivitamin Capsule] RX: amLODIPine [Norvasc] 10 mg PO DAILY 06/01/18 08/13/18 HYDROmorphone [Dilaudid] 2 mg PO Q4H PRN 07/22/18 08/13/18 metOLazone [Zaroxolyn] 2.5 mg PO MWF 07/23/18 08/13/18 Review of Systems - Physician Review All systems were reviewed & negative as marked: Yes - Review of Systems Constitutional: absent: Fevers Respiratory: absent: SOB Physical Exam - Physical Exam Narrative Physical Exam (Text): 08/13/18 17:26 Constitutional: No acute distress. Head: Normocephalic. Atraumatic. Eyes: PERRL. ENT: Moist mucous membranes. Neck: Supple. Cardiovascular: Regular rate. Chest: No tenderness. Respiratory: Clear to auscultation bilaterally. Back: No CVA tenderness. Musculoskeletal: No tenderness or swelling of extremities. Skin: No rash. Neurologic: Alert, no focal deficit. Vital Signs Reviewed: Yes Vital Signs Temp Pulse Pulse Resp BP BP Pulse Ox 08/13/18 17:15 95 H 20 113/72 98 08/13/18 17:10 95 H 113/72 08/13/18 17:01 97.0 F L 98 H 18 123/76 98 Temperature: Afebrile Blood Pressure: Normal Pulse: Regular Respiratory Rate: Normal Appearance: Positive for: Well-Appearing, Non-Toxic, Comfortable Medical Decision Making ED Course and Treatment: 08/13/18 17:32 Impression: 58 year old male presents to emergency department complaining of chest pain following biliary drainage procedure earlier today. Plan: -- Reassess and disposition 08/13/18 17:46 At time of discharge, patient is afebrile, non-tachycardic, non-hypertensive, and saturating on room air. Informed patient of diagnosis of ACS and rationale behind serial troponins. Patient wished to go home. Dr. Carter states he will see patient tomorrow and send troponin in addition to patient's other blood work. Patient instructed to return to Emergency department immediately for any worsening pain, dyspnea, nausea, or any other problem. - Scribe Statement The provider has reviewed the documentation as recorded by the Scribe Kj Onofre All medical record entries made by the Scribe were at my direction and personally dictated by me. I have reviewed the chart and agree that the record accurately reflects my personal performance of the history, physical exam, medical decision making, and the department course for this patient. I have also personally directed, reviewed, and agree with the discharge instructions and disposition. Disposition/Present on Arrival - Present on Arrival Any Indicators Present on Arrival: No History of DVT/PE: No History of Uncontrolled Diabetes: No Urinary Catheter: No History of Decub. Ulcer: No History Surgical Site Infection Following: None - Disposition Have Diagnosis and Disposition been Completed?: Yes Diagnosis: Chest pain Disposition: HOME/ ROUTINE Disposition Time: 17:30 Patient Plan: Discharge Condition: STABLE Discharge Instructions (ExitCare): Chest Pain (ED) Additional Instructions: Dr. Carter will send a blood test for you tomorrow called: Troponin. Prescriptions: RX: Sucralfate [Carafate Tab] 1 gm PO BID #14 tab Referrals: Nancy Carter MD [Staff Provider] - Follow up with primary Forms: [employer] (German)
== END 2018-08-13 17:56 | disposition home or self-care (01) ==
LOC: ED 16:59
DX: R07.9 Chest pain, unspecified (principal); Z87.891 Personal history of nicotine dependence

== ENCOUNTER 2018-08-17 16:05 | Outpatient (CLI) | payer OTHER | END 2018-08-17 16:06 | disposition home or self-care (01) | LOC: LAB 16:05 ==